=== PATIENT | male | born 1940 | race Caucasian/White ===

== ENCOUNTER 2020-08-27 06:47 | Outpatient (CLI) | payer MEDICARE, OTHER, SELFPAY ==
--- NOTE | 2020-08-27 07:09 | NMCV_ITS ---
NM lei perf SPECT r/s* [id number] Ky Najera Age: 79 Gender: M : 1940 Exam Date: 08/27/2020 07:48 Ordering Phys: Kam Regan MD Technologist: SINDY Thibodeaux Exam Location: [facility] Indications: ATRIAL FIBRILLATION, ATHEROSCLEROTIC HEART DISEASE STRESS TEST Please see separate stress [facility] for full findings IMAGE PROTOCOL Rest/Stress 1 Lexiscan Day Radiopharmaceutical Dose (mCi) Administration Site Administered by Rest: Tc-99m 10.9 IV SINDY Cosme Sestamibi Stress:Tc-99m 33.0 IV SINDY Thibodeaux Sestamiari Rest: 27-Aug-2020 60 Discovery 630 Stress: 27-Aug-2020 30 Discovery 630 0.4mg Lexiscan. Supine position only as patient was unable to lay prone. SPECT RESULTS Technical Quality: Excellent Raw Data Analysis: Normal Image Corrections: No attenuation or motion correction applied Summed Stress Score: 8 Summed Rest Score: 6 Summed Difference Score: 2 PERFUSION FINDINGS Small size perfusion abnormality of mild severity of basal to mid inferolateral, mid inferior and apical septal diaz on rest images with reversibility noted in mid inferolateral and apical septal diaz on stress images. FUNCTIONAL RESULTS (calculated via Gated SPECT) Stress Image LV EF (%): 69 Stress EDV (mL):75 TID: 1.14 Stress ESV (mL):23 FUNCTIONAL FINDINGS: The left ventricle is normal in size. Transient Ischemia Dilatation of 1.1. There is normal left ventricular systolic function. The left ventricular ejection fraction is normal with a value of 69%. There is normal left ventricular wall thickening with no regional wall motion normality. Normal end-diastolic end-systolic volumes. IMPRESSIONS 1. Small sized partially reversible perfusion abnormality of mild severity of basal to mid inferolateral, mid inferior and apical septal diaz. 2. This may represent old myocardial infarction in circumflex artery territory with mild micheline-infarct ischemia. 3. Overall left ventricular systolic function is normal without regional wall motion abnormalities, LVEF=69%. 4. EKG portion of the study will be reported separately. 5. When compared to previous study dated 02/22/2018, this finding appears to be new. Cathie Louis MD (Electronically Signed) Final Date: 27 August 2020 18:48 S
--- NOTE | 2020-08-27 07:09 | ECG_ITS ---
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 Interpretive Statements NAME OF STUDY: LEXISCAN SESTAMIBI STRESS TEST INDICATION: Atrial fibrillation PROCEDURE: At the baseline, the blood pressure was 119/82 mmHg, oxygen saturation 97% with a heart rate of 50 bpm. The electrocardiogram showed sinus bradycardia with first-degree AV block. Normal axis nonspecific ST depression. The Lexiscan was infused over a period of 20 seconds. A total of 0.4 milligrams of Lexiscan was infused. The stress phase was continued for a total of 5 minutes. Heart rate at the end of the stress phase was 67 bpm, oxygen saturation 98% with a blood pressure of 118/87 mmHg. The EKG at the peak infusion revealed no significant ST-T wave changes. The study was terminated due to protocol completion. Sestamibi was injected 20 seconds after the Lexiscan infusion. Blood pressure at the end of the recovery phase was 130/67 mmHg, oxygen saturation 97% with a heart rate of 64 beats per minute. CONCLUSION: 1. No significant EKG changes with the LexiScan infusion. 2. No LexiScan induced chest pain or cardiac arrhythmia. 3. Normal blood pressure and heart rate response. 4. Sestamibi/sestamibi perfusion scan pending; see separate report. Electronically Signed On 08-27-2020 11:18:13 CDT by Cathie Louis M.D. [email or web address]
[2020-08-27 07:25] VITALS: BMI 32.4
[2020-08-27] MEDS: regadenoson 0.4 Mg/5 ml Syringe IVP (08:41)
[2020-08-27 08:44] VITALS: BP 130/67; PULSE 65
== END 2020-08-27 06:48 | disposition home or self-care (01) ==
LOC: RAD 06:54 → CDL 07:12
PROVIDERS: PCP Family Medicine; Visit Provider Family Medicine
DX: I48.91 Unspecified atrial fibrillation (principal); I25.10 Atherosclerotic heart disease of native coronary artery without angina pectoris
CPT/HCPCS: 78452; 93017; A9500; J2785

== ENCOUNTER → 2020-09-14 09:23 | Outpatient (BNVA) | payer MEDICARE, OTHER, SELFPAY | PROVIDERS: PCP Family Medicine; Referring Provider Internal Medicine Cardiovascular Disease; Visit Provider Internal Medicine Cardiovascular Disease | DX: Z01.812 Encounter for preprocedural laboratory examination (principal); Z20.822 Contact with and (suspected) exposure to COVID-19; I48.91 Unspecified atrial fibrillation; I10 Essential (primary) hypertension; I25.10 Atherosclerotic heart disease of native coronary artery without angina pectoris | CPT/HCPCS: 80048; 85025; 85610; 87635 ==

== ENCOUNTER 2020-09-19 07:34 | Day surgery (SDC) | payer MEDICARE, OTHER, SELFPAY ==
[2020-09-19] VITALS (19 sets, daily range): BP systolic 103–135; BP diastolic 59–69; PULSE 47–56; RESP 3–21; TEMP 36.8; O2SAT 94–98; BMI 32.4
--- NOTE | 2020-09-19 07:30 | XACV_ITS ---
Ht: 165 cm Wt: 88 kg BSA: 2.05 m2 Gender: Male : 1940 Any Known Allergies: No known allergies Exam Priority: Routine Procedure(s): Procedure Description: Diagnostic procedure Procedure Description: Coronary Angiography Procedure Description: Pressure Wire Diagnostic Cath Status: Elective Diagnostic Findings * Left Main has no disease. * Left Anterior Descending has no disease. * Circumflex has no disease. * Proximal Right Coronary Artery: obstructive 60% stenosis, ELIDA: 3 flow. * Distal Right Coronary Artery: mild 40% stenosis, ELIDA: 3 flow. * Coronary angiography shows right dominance. PCI Status: Elective Conclusions 1. 1-Normal left main2-Patent previously placed proximal LAD stent rest of the vessel has diffuse luminal irregularities3-Nondominant circumflex, obtuse marginal has luminal irregularity4-Dominant RCA with proximal 60% and distal 40% stenosis . 2. There is obstructive coronary artery disease with one vessel disease. 3. FFR: After equalizing the distal and proximal pressure of FFR wire proximal to the lesion, mid to distal RCA was crossed with FFR wire. IV adenosine at rate of 140 mcg/min was started. Patient did not compliant of any symptoms, at then end of two minutes FFR was recorded as 0.93, which is not significant . Recommendations * Medical management advised. Diagnostic RX Recommendation: medical therapy and/or counseling Pressures Phase:Rest AO : 119 / 58 ( 83 ) @ 9:15:00 AM 112 / 53 ( 78 ) @ 9:19:00 AM Clinical Evaluation EBL: 5mL-10mL Procedural Details Pre-Procedure Time Out. Identified patient by full name and date of as verbalized by the patient/guarantor. Does the consent match the physician's order: Yes. Accurate & Complete Informed Consent: Yes. Inpatient/Outpatient History & Physical on Chart: Yes. If H&P is completed, is and addenduem needed: Yes; If yes, is the addendum complete: Yes. Visualize and Verify Site with Patient/Guarantor: N/A. Relevant Radiology Images available: Yes. Pre-op teaching completed and patient verbalized understanding. The risks, benefits, and alternatives of sedation and/or procedure were discussed by physician. The patient agrees to continue. Procedure started. Current Diagnosis : Chest Pain. [facility] Clinical Fraility Score: 4: Vulnerable. 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 Chest Pain Symptom Assessment: Typical Angina Symptoms. Correct patient, site and procedure confirmed by cath team. Current diagnosis: Chest Pain. PERRLA. 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 Lungs clear x 5 lobes. IV Site on Arrival: 20 gauge in the left forearm. IV Fluids: 0.9% NaCl at KVO. 0 mL infused prior to tender labor. Pre Procedural Pulses: bilateral dorsalis pedis was 3+. Pre Procedural Pulses: bilateral posterior tibial was 1+. Pre Procedural Pulses: right radial was 2+. Oxygen started at 2liters/min via nasal canula. right groin was prepped with chloroprep then draped in the usual sterile fashion. right radial was prepped with chloroprep then draped in the usual sterile fashion. Physician notified. Baseline sample Acquired. HR: 50 BPM. Physician arrived. Steve Mckenna scrubbed in. Raysa Nielson circulating. Physician scrubbed in. Immediate Pre-Procedure Time Out. Correct Patient: Yes; Correct Procedure: Yes; Correct Site: Yes; Correct Patient Position: Yes; Correct Supplies: Yes; Dried Flammable Prep: Yes; Blood Products Available: N/A;. Lidocaine 1% infiltrated to the right radial. Arterial access obtained. A 5 omani Brian catheter in over wire. Multiple views taken of left coronary artery. Catheter redirected to the RCA. Catheter removed over the exchange wire. A 5 omani JR4 catheter in over wire. Multiple views taken of right coronary artery. Catheter removed over the exchange wire. Lidocaine 1% infiltrated to the right groin. Arterial access obtained with micropuncture set. 6 omani JR 4 guide catheter was inserted over the wire. FFR guidewire was advanced through the guide catheter to lesion in the mid RCA. An FFR value of 0.93 was obtained for a lesion located at Mid RCA. Fractional flow reserve measurements obtained. Wire out. Guide catheter out. A TR Band was successful obtaining hemostatsis at the Right Radial artery insertion site. TR band placed. Hemostasis obtained. A Right femoral angiogram was performed to determine safe placement of closure device. A Mynx was successful obtaining hemostatsis at the Right Femoral artery insertion site. Mynx placed without complications. No signs or symptoms of hematoma noted. Sterile dressing applied per usual sterile fashion. Post Procedure: Pulses reassessed and unchanged. PERRLA. 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 No VTE prophylaxis required. Medication's Wasted: Heparin = 1000 units. Medication's Wasted: Other = Fentanyl 75 mcg. Medication's Wasted: Other = Adenosine 63 mL. Medication's Wasted: Nitro = 49.8 mg. Total IV fluids: 79 mL. Contrast type used: Omnipaque 300 mgI/mL, 500 mL bottle. Complications: None. Estimated blood loss: 5mL-10mL. Procedure completed. Patient transferred by stretcher to CPRU. Vital chart was stopped. Access Site Site: Right Radial artery Sheath Size: 6 Fr Hemostasis Method: TR Band Hemostasis Success: Successful Site: Right Femoral artery Sheath Size: 6 Fr Hemostasis Method: Mynx Hemostasis Success: Successful Procedure Medications Start: 10:04 AM Stop: 10:04 AM Medication: Versed Amount: 1 mg Route: I.V. Start: 10:08 AM Stop: 10:08 AM Medication: Versed 1 mg and Fentanyl 25 mcg Amount: 1 Route: I.V. Start: 10:12 AM Stop: 10:12 AM Medication: Nitrogylcerin Amount: 200 mcg Route: I.A. Start: 10:15 AM Stop: 10:15 AM Medication: Heparin Amount: 5000 units Route: I.V. I, the attending physician, have reviewed and verified all procedure medications. Yes, all medications given per verbal order History/Risk Factors Hypertension: Yes Dyslipidemia: No Peripheral Arterial Disease (PAD): No Myocardial Infarction (SC): Yes Obesity: No Renal Disease: No Prior Interventions PCI: Yes CABG: No Valve Surgery: No Date of PCI: 08/09/2013 Report Signatures Finalized by Ashely Hernandez MD on 10/02/2020 06:41 PM
[2020-09-19] MEDS: diphenhydrAMINE 50 mg Capsule PO (08:46)
--- NOTE | 2020-09-19 09:26 | P.HP_ITS ---
Same Day Surgery H&P Indication for Procedure/HPI DATE OF PROCEDURE: September 19, 2020 CHIEF COMPLAINT/INDICATIONFOR SURGICAL PROCEDURE: Worsening of chest pain suspicious for angina/abnormal stress test PREOP DIAGNOSIS: Chest pain suspicious for angina/abnormal stress test PLANNED PROCEDRUE: Operation Date: 09/19/20 08:30 Proposed Procedures p Cardiac Catheterization 02663 R06.02(Left) - Ashely Hernandez MD 79-year-old male past medical history significant for myocardial infarction, history of LAD stent in August 2003 and nonobstructive coronary artery disease including 50% RCA and 60% circumflex for worsening of chest pain shortness of breath despite of optimization of medicine underwent stress test TID ratio was elevated however mild periinfarct ischemia was noted. Since patient continues to worsen with symptoms and taking nitroglycerin at frequent interval we decided to proceed with left heart cath. Today patient is here for this very reason. Patient has been explained all risk benefit and alternative for the procedure. He has been explained the risks for stroke major minor bleed which is less than 2% and risk for hematoma infection bruising which is around 6%. He would like to proceed with it. He is a good candidate for DAPT. Medications/Allergies* Home Medications Medication Instructions Recorded Confirmed Type aspirin 81 mg tablet,delayed 81 mg PO DAILY 05/26/19 09/19/20 History release atorvastatin 20 mg tablet 20 mg PO DAILY 05/26/19 09/19/20 History cetirizine 10 mg tablet 5 mg PO DAILY PRN 05/26/19 09/19/20 History clopidogrel 75 mg tablet 75 mg PO DAILY 05/26/19 09/19/20 History isosorbide mononitrate 30 mg 30 mg PO BID tab 05/26/19 09/19/20 History tablet,extended release 24 hr magnesium oxide 400 mg PO DAILY 05/26/19 09/19/20 History montelukast 10 mg tablet 10 mg PO DAILY 05/26/19 09/19/20 History nitroglycerin 0.4 mg sublingual 0.4 mg SUBLINGUAL Q5M PRN 05/26/19 09/19/20 History tablet pantoprazole 20 mg tablet,delayed 20 mg PO DAILY 05/26/19 09/19/20 History release sotalol 120 mg tablet 120 mg PO BID 05/26/19 09/19/20 History tamsulosin 0.4 mg capsule 0.4 mg PO DAILY 05/26/19 09/19/20 History lisinopril 20 mg tablet 20 mg PO BID 05/27/19 09/19/20 History amlodipine 5 mg tablet 5 mg PO DAILY 09/05/20 09/19/20 History naproxen 500 mg tablet 500 mg PO BID PRN 09/05/20 09/19/20 History Allergies/Adverse Reactions Allergy/AdvReac Type Severity Reaction Status Date / Time No Known Allergies Allergy Unverified 12/07/19 15:43 Pertinent History/Comorbid Conditions* Medical History (Updated 09/06/20 @ 20:28 by Ashely Hernandez MD) Arteriosclerotic coronary artery disease Atrial fibrillation HTN (hypertension) Surgical History (Updated 05/27/19 @ 10:46 by Ashely Hernandez MD) S/P PTCA (percutaneous transluminal coronary angioplasty) Family History (Updated 05/26/19 @ 16:00 by Tory Heard LPN) Cancer Social History Smoking and tobacco status: never smoked Pertinent Exam Findings alert, oriented x 3, clear to auscultation bilaterally, regular rate & rhythm and operative site marked Conscious Sedation Assessment PATIENT ASSESSED PRIOR TO SEDATION, WITH NO CHANGE NOTED: Yes AIRWAY EVAL/ANESTHESIA PLAN: ASA II, Risks, benefits & alternatives of sedation and/or procedure discussed and Patient agrees to continue as planned Recommendations Surgery/Procedure today Coding Level of Care Code Acute Cephalometric Tracer for Trent Lanza
--- NOTE | 2020-09-19 11:41 | PC.NURSE ---
[facility] complete Angiogram completed at this time. Hematoma noted to R radial access site in CCL, 2nd TR band applied. Minx closure device used to R groin access site, hematoma also formed in CCL before arrival to CPRU. Borders marked around hematoma on arrival to CPRU. No new bleeding noted. Will continue to monitor.
--- NOTE | 2020-09-19 12:40 | PC.NURSE ---
TR Band Air released from distal TR band at this time per protocol. No bleeding noted. Will monitor.
--- NOTE | 2020-09-19 14:30 | PC.NURSE ---
The TR Band deflation is complete. No swelling or bleeding noted. PMS intact. Patient ambulated himself to the restroom. Upon returning to his room the groin and wrist site were inspected. Neither site had any swelling or bleeding noted. The patient is sitting in a chair and will be monitored for one more hour.
== END 2020-09-19 15:55 | disposition home or self-care (01) ==
PROVIDERS: PCP Family Medicine; Visit Provider Internal Medicine Cardiovascular Disease
DX: I25.10 Atherosclerotic heart disease of native coronary artery without angina pectoris (principal); I25.2 Old myocardial infarction; Z95.5 Presence of coronary angioplasty implant and graft; Z79.82 Long term (current) use of aspirin; I48.91 Unspecified atrial fibrillation; I10 Essential (primary) hypertension
CPT/HCPCS: 93454; 93571; C1760; C1769; C1887; C1894; J0153; J1644; J2250; J3010; J7030; Q0163; Q9967

== ENCOUNTER → 2020-09-25 09:42 | Outpatient (BNVA) | payer MEDICARE, OTHER, SELFPAY | PROVIDERS: PCP Family Medicine; Visit Provider Nurse Practitioner Family | DX: I25.10 Atherosclerotic heart disease of native coronary artery without angina pectoris (principal) | CPT/HCPCS: 80048 ==

== ENCOUNTER 2021-04-13 13:04 | Emergency (ER) | payer MEDICARE, OTHER, SELFPAY ==
[2021-04-13 13:16] VITALS: BP 153/65; PULSE 54; RESP 18; TEMP 36.9; O2SAT 97; BMI 33.3
--- NOTE | 2021-04-13 13:37 | W.ED.EYEPROB ---
Documented by User: [email or web address] Morris 04/13/21 15:02 HPI - Eye Problem General: Chief complaint: Eye Problems Stated complaint: left eye swelling Time Seen by Provider: 04/13/21 13:20 Source: patient and family () Mode of arrival: ambulatory Limitations: no limitations History of Present Illness: Patient is a nice 80-year-old male who presents to ED today along with his for concerns of redness and edema to the inferior aspect of his left eye. Patient states he first began noticing symptoms about a week ago. He was placed on cephalexin by his PCP Dr. Regan and states he has been on this medication over the past 5 days and does not seem to be improving. He states the eye itself seems to be okay and he is not complaining of any blurry vision, excessive tearing or discharge, foreign body sensations, ocular pain, or pain with EOMs. He has not had any recent injury or trauma. Onset (ago): day(s) Onset description: gradual Duration: constant Location: left eye Place: home Mechanism: none Associated symptoms: Reports no associated symptoms; Denies fever(s) Treatments Prior to Arrival: other (antibiotics ) Related Data: Patient tetanus UTD: Yes Review of Systems Const: Denies: fever(s), chills, body aches, fatigue or malaise Eyes: Reports: other (swelling around L eye); Denies: change in vision, blurry vision, blind spots, photophobia, eye discharge, eye redness, floaters or seeing flashes PFS ED PFSH: Medical History Arteriosclerotic coronary artery disease Atrial fibrillation HTN (hypertension) Surgical History S/P PTCA (percutaneous transluminal coronary angioplasty) Family History Other Cancer Physical Exam Const: COMMON NORMALS: no acute distress, patient oriented x3, no limitations and alert GENERAL APPEARANCE: cooperative NUTRITIONAL APPEARANCE: overweight ORIENTATION/CONSCIOUSNESS: Yes awake, Yes oriented to person, Yes oriented to place and Yes oriented to time HENMT: COMMON NORMALS: normocephalic, atraumatic and Normal external nose present HEAD & SCALP: normal to inspection, normocephalic and atraumatic FACE & SINUS IMAGES: 1. erythema/edema noted; no skin lesions present; no excessive tearing; no obvious abscess appreciated; some mild reactive edema to inferior orbit; findings do not look like periorbital cellulitis-certainly no certain for orbital cellulitis NOSE: Normal external nose present Eye: COMMON NORMALS: Equal, round and reactive pupils present, EOMs intact bilaterally and conjunctivae normal GENERAL EYE: normal light reflex VISUAL ACUITY: Yes acuity normal PERIORBITAL: periorbital findings abnormal (see above documentation) EYELID: eyelids normal CONJUNCTIVA: Yes conjunctivae normal SCLERA: sclerae normal CORNEA: Yes corneas normal PUPIL: Yes Equal, round and reactive pupils present DIRECT OPHTHALMOSCOPY: Yes normal light reflex Neuro: COMMON NORMALS: patient oriented x3 SENSORIUM/ORIENTATION: Yes alert, Yes oriented to person, Yes oriented to place and Yes oriented to time Course Vital Signs: Vital signs: Vital Signs Temperature 98.4 F 04/13/21 13:16 Pulse Rate 54 L 04/13/21 13:16 Respiratory Rate 18 04/13/21 13:16 Blood Pressure 153/65 04/13/21 13:16 Pulse Oximetry 97 04/13/21 13:16 MDM - Eye Problem Medical Decision Making Patient has erythema and edematous changes overlying his left lacrimal region. DDx includes nasolacrimal duct obstruction/calculus/carcinoma, facial cellulitis, etc. Spoke to Dr. Jackson we will add clindamycin to his antibiotic regimen and have him follow-up with Dr. Lang early this week for re-evaluation. Discharge Plan Discharge Patient Disposition: Home Clinical Impression: Edema of left orbit Condition: Stable Prescriptions: New clindamycin HCl 300 mg capsule 300 mg PO Q6H 7 Days Qty: 28 0RF No Action lisinopril 20 mg tablet 20 mg PO BID 0RF montelukast 10 mg tablet 10 mg PO DAILY 0RF pantoprazole [Protonix] 20 mg tablet,delayed release (DR/EC) 20 mg PO DAILY 0RF magnesium oxide 400 mg magnesium capsule 400 mg PO DAILY 0RF atorvastatin 20 mg tablet 20 mg PO DAILY 0RF clopidogrel [Plavix] 75 mg tablet 75 mg PO DAILY 0RF isosorbide mononitrate 30 mg tablet extended release 24 hr 30 mg PO BID 0RF sotalol 120 mg tablet 120 mg PO BID 0RF tamsulosin 0.4 mg capsule 0.4 mg PO DAILY 0RF aspirin [Adult Low Dose Aspirin] 81 mg tablet,delayed release (DR/EC) 81 mg PO DAILY 0RF nitroglycerin [Nitrostat] 0.4 mg tablet, sublingual 0.4 mg SUBLINGUAL Q5M PRN (Reason: Chest Pain) 0RF cetirizine [Zyrtec] 10 mg tablet 5 mg PO DAILY PRN (Reason: allergies) 0RF naproxen 500 mg tablet 500 mg PO BID PRN (Reason: Pain) 0RF amlodipine 5 mg tablet 5 mg PO DAILY 0RF Discharge Orders: Discharge ED (Routine); Ordered 04/13/21 Ordered By: Mandi Tobias Referrals: Kam Regan MD [Primary Care Provider] - Activity Restrictions/Additional Instructions: As we discussed case management should contact you early this week to set you up with your follow-up appointment with Dr. Lang. As you are established patients, please try to contact them yourself early Thursday morning to see if they have any last-minute cancellations and can work you into the schedule. Begin the antibiotics prescribed today immediately. You may return to the emergency department or follow-up with your primary care provider for worsening redness, swelling, increased pain, or any other concerns you may have. I hope you begin to feel better soon. Coding Level of Care Code ED Pre Assembly Wirer for Chg Fwd Exam Expanded Problem Focused Documented by User: Jarod Jackson DO 04/13/21 15:53 HPI - Eye Problem General: Chief complaint: Eye Problems Stated complaint: left eye swelling Time Seen by Provider: 04/13/21 13:20 PFSH ED PFSH: Medical History Arteriosclerotic coronary artery disease Atrial fibrillation HTN (hypertension) Surgical History S/P PTCA (percutaneous transluminal coronary angioplasty) Family History Other Cancer Physical Exam HENMT: FACE & SINUS IMAGES: 1. erythema/edema noted; no skin lesions present; no excessive tearing; no obvious abscess appreciated; some mild reactive edema to inferior orbit; findings do not look like periorbital cellulitis-certainly no certain for orbital cellulitis Course Vital Signs: Vital signs: Vital Signs Temperature 98.4 F 04/13/21 13:16 Pulse Rate 54 L 04/13/21 13:16 Respiratory Rate 18 04/13/21 13:16 Blood Pressure 153/65 04/13/21 13:16 Pulse Oximetry 97 04/13/21 13:16 MDM - Eye Problem Medical Decision Making Patient has erythema and edematous changes overlying his left lacrimal region. DDx includes nasolacrimal duct obstruction/calculus/carcinoma, facial cellulitis, etc. Spoke to Dr. Jackson we will add clindamycin to his antibiotic regimen and have him follow-up with Dr. Lang early this week for re-evaluation. Chart reviewed and patient discussed with midlevel. Agree with assessment and plan. Discharge Plan Discharge Patient Disposition: Home Clinical Impression: Edema of left orbit Condition: Stable Prescriptions: New clindamycin HCl 300 mg capsule 300 mg PO Q6H 7 Days Qty: 28 0RF No Action lisinopril 20 mg tablet 20 mg PO BID 0RF montelukast 10 mg tablet 10 mg PO DAILY 0RF pantoprazole [Protonix] 20 mg tablet,delayed release (DR/EC) 20 mg PO DAILY 0RF magnesium oxide 400 mg magnesium capsule 400 mg PO DAILY 0RF atorvastatin 20 mg tablet 20 mg PO DAILY 0RF clopidogrel [Plavix] 75 mg tablet 75 mg PO DAILY 0RF isosorbide mononitrate 30 mg tablet extended release 24 hr 30 mg PO BID 0RF sotalol 120 mg tablet 120 mg PO BID 0RF tamsulosin 0.4 mg capsule 0.4 mg PO DAILY 0RF aspirin [Adult Low Dose Aspirin] 81 mg tablet,delayed release (DR/EC) 81 mg PO DAILY 0RF nitroglycerin [Nitrostat] 0.4 mg tablet, sublingual 0.4 mg SUBLINGUAL Q5M PRN (Reason: Chest Pain) 0RF cetirizine [Zyrtec] 10 mg tablet 5 mg PO DAILY PRN (Reason: allergies) 0RF naproxen 500 mg tablet 500 mg PO BID PRN (Reason: Pain) 0RF amlodipine 5 mg tablet 5 mg PO DAILY 0RF Discharge Orders: Discharge ED (Routine); Ordered 04/13/21 Ordered By: Mandi Tobias Referrals: Kam Regan MD [Primary Care Provider] - Activity Restrictions/Additional Instructions: As we discussed case management should contact you early this week to set you up with your follow-up appointment with Dr. Lang. As you are established patients, please try to contact them yourself early Thursday to see if they have any last-minute cancellations and can work you into the schedule. Begin the antibiotics prescribed today immediately. You may return to the emergency department or follow-up with your primary care provider for worsening redness, swelling, increased pain, or any other concerns you may have. I hope you begin to feel better soon. Coding Level of Care Code ED Pre Assembly Wirer for Trent Fweb Exam Expanded Problem Focused
[2021-04-13] MEDS: clindamycin 150 mg/mL SDV 6 mL 600 MG IM (14:11)
--- NOTE | 2021-04-16 05:44 | DCPLANNER ---
Addendum entered by Antonella Hawk 04/23/21 08:57: Patient had a follow up appointment scheduled for 04.19.[address] Lang - patient did attend appointment. Original Note: assistant store manager had message to schedule a follow up appointment for patient with Dr. Lang. assistant store manager faxed patients information to the office of Dr. Lang. Patients information will be reviewed. Clinic will call patient with appointment information.
== END 2021-04-13 14:21 | disposition home or self-care (01) ==
PROVIDERS: Emergency Provider Physician Assistant; PCP Family Medicine
DX: H05.222 Edema of left orbit (principal); Z79.02 Long term (current) use of antithrombotics/antiplatelets; Z79.82 Long term (current) use of aspirin; I25.10 Atherosclerotic heart disease of native coronary artery without angina pectoris; I10 Essential (primary) hypertension
CPT/HCPCS: 96372; 99283; J3490

== ENCOUNTER → 2021-07-16 14:29 | Outpatient (BNVA) | payer MEDICARE, OTHER, SELFPAY | PROVIDERS: PCP Family Medicine; Visit Provider Internal Medicine Cardiovascular Disease | DX: I25.10 Atherosclerotic heart disease of native coronary artery without angina pectoris (principal); I48.19 Other persistent atrial fibrillation; I10 Essential (primary) hypertension; E78.5 Hyperlipidemia, unspecified; G47.33 Obstructive sleep apnea (adult) (pediatric); R00.1 Bradycardia, unspecified; I44.0 Atrioventricular block, first degree | CPT/HCPCS: 93005; 99214 ==

== ENCOUNTER 2021-08-02 08:49 | Inpatient (IN) | payer MEDICARE, OTHER, SELFPAY ==
[2021-08-02] VITALS (20 sets, daily range): BP systolic 108–150; BP diastolic 58–80; PULSE 74–94; RESP 15–32; TEMP 36.8–37.9; O2SAT 77–97; BMI 32.9; BMI 32.3
--- NOTE | 2021-08-02 08:52 | W.ED.GENADLT ---
HPI - General Adult General: Chief complaint: Upper Respiratory Infection Stated complaint: flu like symptoms Time Seen by Provider: 08/02/21 08:52 History of Present Illness: Mr. Najera is an 80-year-old gentleman with history of hypertension, hyperlipidemia, CAD, atrial fibrillation, PATTI who presents to the emergency department due to generalized symptoms including diarrhea and malaise. He reports onset of symptoms approximately 7 PM yesterday evening. Onset was subacute with multiple episodes of watery diarrhea without blood. Minimal associated abdominal discomfort which is aching and intermittent. Since that time he has had fevers, chills, and generalized weakness. Intensity symptoms is moderate. Course has persisted. No other specific changes in health, exacerbating, or alleviating factors identified. Onset (ago): hour(s) Severity: moderate Associated symptoms: Reports fevers/chills and malaise Review of Systems General: Reports: 10 or more systems reviewed and unremarkable except in HPI and below Const: Reports: malaise [facility] ED PFSH: Medical History Arteriosclerotic coronary artery disease Atrial fibrillation HTN (hypertension) Hyperlipidemia PATTI (obstructive sleep apnea) Surgical History S/P cholecystectomy S/P PTCA (percutaneous transluminal coronary angioplasty) Family History Other Cancer Social History Smoking and tobacco status: never smoked Alcohol intake: never Lives independently: Yes Household members: spouse and children Marital status: Physical Exam Const: COMMON NORMALS: alert GENERAL APPEARANCE: cooperative, well developed and ill appearing (Somewhat) HENMT: COMMON NORMALS: normocephalic and atraumatic HEAD & SCALP: normocephalic and atraumatic Eye: COMMON NORMALS: conjunctivae normal CONJUNCTIVA: Yes conjunctivae normal SCLERA: sclerae normal Neck/C-Spine: COMMON NORMALS: supple GENERAL: Yes trachea midline Resp: COMMON NORMALS: normal respiratory effort and clear to auscultation bilaterally EFFORT & INSPECTION: Yes able to speak in complete sentences AUSCULTATION: clear to auscultation bilaterally Cardio: COMMON NORMALS: regular rate and regular rhythm RATE: regular rate RHYTHM: regular rhythm GI: COMMON NORMALS: Soft to palpation PALPATION: Yes Soft to palpation, Yes Tenderness to palpation present (GI), No Guarding due to palpation present (GI) and No Rigid due to palpation PERCUSSION: normal to percussion Extremity: GENERAL: Yes normal exam except as noted and No edema Neuro: COMMON NORMALS: moves all extremities SENSORIUM/ORIENTATION: Yes alert and No Orientation impaired Psych: COMMON NORMALS: mental status grossly normal and Normal thought process present THOUGHT PROCESS: Normal thought process present Course ED course: - Patient was seen and evaluated by me at bedside - Patient placed on cardiac monitors, IV access obtained - Initial evaluation notable for exam as above, somewhat ill-appearing - Labs and xrays personally interpreted by me. EKG showing sinus rhythm with first degree AV block, no STEMI. -Fluids and antiemetic given - Labs notable for leukopenia, normal hemoglobin, thrombocytopenia. Metabolic panel with evidence of dehydration. Total bilirubin elevated of unclear etiology. Patient does not have clinically apparent jaundice, pain is not isolated to right upper quadrant. - Imaging notable for no lobar consolidation or pneumothorax on chest x-ray. Fluid-filled colon on CT likely representing enteritis/colitis. Antibiotics ordered. - Upon serial reexamination after treatment the patient was similar. He had multiple episodes of watery stool while in the emergency department. Given ongoing symptoms and overall clinical appearance I believe that inpatient management is required. - Based on patient history, evaluation, and testing as interpreted the most likely cause of the patient's condition is enterocolitis - The results of ED evaluation were discussed with the patient including plan for admission due to requirement for level of care not available if discharged to prevent significant worsening/deterioration. - Admitting service was contacted and [] with [] agreed to admit the patient - Patient was admitted without further deterioration or significant events. Note: Click bubbles or prepopulated lugo in note writing are used for assistance with data collection and billing and are inherently more limited than narrative and other text portions of this note. Please use narrative for additional clinical history and defer to narrative/free test for any case of contradictory information. If information appears in only free text or click bubble it should be considered present or absent as reported. Please contact note freelance copywriter for clarifications of clinical information or contradictory information. MDM is a brief summary, contradictory or erroneous seeming information should be clarified and full note should be reviewed. Vital Signs: Vital signs: Vital Signs Temperature 98.1 F 08/04/21 17:44 Pulse Rate 94 08/04/21 17:44 Respiratory Rate 16 08/04/21 17:44 Blood Pressure 120/67 08/04/21 17:44 Pulse Oximetry 95 08/04/21 17:44 MDM - General Adult Medical Decision Making 80-year-old gentleman presenting with generalized symptoms and diarrhea. Found to have enterocolitis. Patient had multiple watery bowel movements while in the emergency department and has evidence of dehydration. Admitted for further management. Medical Records I reviewed the patient's medical records. Lab Data I reviewed the patient's lab results. : 08/04/21 04:50 08/04/21 04:50 Radiology Impressions Chest X-Ray 08/02/21 09:19 IMPRESSION: 1. No acute cardiopulmonary finding. Abdomen/Pelvis CT 08/02/21 09:38 IMPRESSION: Fluid prominence in the colon could indicate prominent secretions due to infectious/inflammatory enteritis/colitis. Laboratory Results WBC 3.1 10^3/uL (4.0-10.0) L 08/03/21 04:22 RBC 3.90 10^6/uL (4.1-5.3) L 08/03/21 04:22 Hgb 11.6 g/dL (11.7-16.6) L 08/03/21 04:22 Hct 34.4 % (42.0-52.0) L 08/03/21 04:22 MCV 88.2 fl (80-94) 08/03/21 04:22 MCH 29.7 pg (28.0-34.0) 08/03/21 04:22 MCHC 33.7 g/dL (30.0-36.0) 08/03/21 04:22 RDW 14.5 % (12.1-15.1) 08/03/21 04:22 Plt Count 97 10^3/cmm (130-400) L 08/03/21 04:22 MPV 10.8 fL (7.4-10.4) H 08/03/21 04:22 Neut % (Auto) 81.1 % 08/03/21 04:22 Lymph % (Auto) 13.5 % 08/03/21 04:22 [place] % (Auto) 4.8 % 08/03/21 04:22 Eos % (Auto) 0.0 % 08/03/21 04:22 Baso % (Auto) 0.3 % 08/03/21 04:22 Neut # (Auto) 2.53 10^3/uL (1.8-7.7) 08/03/21 04:22 Lymph # (Auto) 0.4 10^3/uL (0.8-4.8) L 08/03/21 04:22 Davie # (Auto) 0.2 10^3/uL (0.2-0.9) 08/03/21 04:22 Eos # (Auto) 0.0 10^3/uL (0.0-0.8) 08/03/21 04: Baso # (Auto) 0.0 10^3/uL (0.0-0.1) 08/03/21 04:22 Nucleated RBC % (auto) 0 % 08/03/21 04:22 Nucleated RBCs # 0.0 /100WBC 08/03/21 04:22 Sodium 134 mmol/L (136-145) L 08/03/21 04:22 Potassium 3.9 mmol/L (3.5-5.1) 08/03/21 04:22 Chloride 101 mmol/L (98-107) 08/03/21 04:22 Carbon Dioxide 23 mmol/L (22-29) 08/03/21 04:22 Anion Gap 13.9 (5-19) 08/03/21 04:22 BUN 30 mg/dL (8-23) H 08/03/21 04:22 Creatinine 1.6 mg/dL (0.7-1.2) H 08/03/21 04:22 GFR Calculation Not Reportable 08/03/21 04:22 Glucose 109 mg/dL (65-115) 08/03/21 04:22 Calculated Osmolality 285 mOsm/kg (285-295) 08/03/21 04:22 Lactate 2.0 mmol/L (0.5-2.2) 08/02/21 10:09 Calcium 9.0 mg/dL (8.5-10.5) 08/03/21 04:22 Magnesium 2.0 mg/dL (1.7-2.3) 08/02/21 08:30 Total Bilirubin 2.4 mg/dL (0.15-1.2) H 08/03/21 04:22 AST 14 U/L (0-40) 08/03/21 04:22 ALT 11 U/L (0-41) 08/03/21 04:22 Alkaline Phosphatase 58 IU/L (40-130) 08/03/21 04:22 Troponin T Baseline 9 ng/L (0-15) 08/02/21 08:30 Troponin T 120 Minute 7.78 ng/L (0-15) 08/02/21 10:09 Delta Troponin T -1.22 ABS# (0-10) L 08/02/21 10:09 Troponin T Hi Sens 6Hr 9.14 ng/L (0-15) 08/02/21 14:31 Troponin T Hi Sens 6Hr Delta 0.14 ng/L (0-12) 08/02/21 14:31 Total Protein 7.1 g/dL (6.6-8.7) 08/03/21 04:22 Albumin 3.9 g/dL (3.5-5.2) 08/03/21 04:22 Globulin 3.2 g/dL (1.3-4.6) 08/03/21 04:22 Procalcitonin 0.10 ng/mL (0-0.5) 08/02/21 08:30 TSH 1.17 uIU/mL (0.27-4.20) 08/02/21 08:30 Urine Color Yellow (Yellow) 08/02/21 09:48 Urine Appearance Clear (CLEAR) 08/02/21 09:48 Urine pH 5 (5-7) 08/02/21 09:48 Ur Specific [place] 1.025 (1.005-1.030) 08/02/21 09:48 Urine Protein Neg (Negative) 08/02/21 09:48 Urine Glucose (UA) Norm (Normal) 08/02/21 09:48 Urine Ketones 1+ (Negative) H 08/02/21 09:48 Urine Blood Neg (Negative) 08/02/21 09:48 Urine Nitrate Negative (Negative) 08/02/21 09:48 Urine Bilirubin 1+ (Negative) H 08/02/21 09:48 Urine Urobilinogen Norm mg/dL (Negative) 08/02/21 09:48 Ur Leukocyte Esterase Negative (Negative) 08/02/21 09:48 Coronavirus 229E (PCR) Not detected (NOT DETECT) 08/02/21 09:34 SARS-CoV-2 (PCR) Not detected (NOT DETECT) 08/02/21 09:34 Discharge Plan Discharge Patient Disposition: Placed in Observation Admit Provider: Charles Cueva Clinical Impression: Enteritis Discharge Diet: Advance as tolerated and Full LIquid Discharge Activity: Increase activity as tolerated Coding Level of Care Code ED Graduate Teaching Associate for Chg Fwd Exam Comprehensive
--- NOTE | 2021-08-02 09:19 | XR_ITS ---
WS: [id number] Exam: XR chest 1V portable [id number] Date/Time of Exam: 08/02/2021 9:57 AM Reason For Exam: weakness, fever Comparison 10/30/2018. The lungs are fully expanded and clear. Normal cardiomediastinal silhouette. No pleural effusions. Se veral old bilateral rib fractures. Bony structures are otherwise intact. XR/XR chest 1V portable [id number] IMPRESSION: 1. No acute cardiopulmonary finding.
--- NOTE | 2021-08-02 09:19 | ECG_ITS ---
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 Measurements Intervals [place] Rate: 74 P: OK: QRS: -27 QRSD: 82 T: 37 QT: 378 QTc: 421 Interpretive Statements SUPRAVENTRICULAR RHYTHM BORDERLINE LEFT AXIS DEVIATION [QRS AXIS < -20] ABNORMAL RHYTHM ECG Compared to ECG 10/30/2018 15:14:20 Supraventricular rhythm now present Sinus rhythm no longer present First degree AV block no longer present Electronically Signed On 08-02-2021 22:52:19 CDT by Cathie Louis M.D. [id number] khalil
[2021-08-02 09:34] LABS: Basophils % 0.5 %; Hematocrit 41.4 % (42.0-52.0); Hemoglobin 13.9 g/dL (11.7-16.6); Lymphocytes # 0.3 10^3/uL (0.8-4.8); Lymphocytes % 6.9 %; Mean Corpuscular HGB Conc 33.6 g/dL (30.0-36.0); Mean Corpuscular Hemoglobin 29.8 pg (28.0-34.0); Mean Corpuscular Volume 88.7 fl (80-94); Mean Platelet Volume 11.2 fL (7.4-10.4); Monocytes # 0.2 10^3/uL (0.2-0.9); Monocytes % 4.6 %; Neutrophils # 3.45 10^3/uL (1.8-7.7); Neutrophils % 87.7 %; Nucleated Red Blood Cells % 0 %; Platelet Count 117 10^3/cmm (130-400); Red Blood Count 4.67 10^6/uL (4.1-5.3); Red Cell Distribution Width 14.3 % (12.1-15.1); White Blood Count 3.9 10^3/uL (4.0-10.0)
[2021-08-02] MEDS: sodium chloride 0.9% 1,000 ML 999 ML IV (09:35)
--- NOTE | 2021-08-02 09:38 | CTR_ITS ---
PROCEDURE INFORMATION: Exam: CT Abdomen And Pelvis Without Contrast Exam date and time: 08/02/2021 10:32 AM Age: 80 years old Clinical indication: Fever and other: Diarrhea; Additional info: Abd pain, diarrhea, fever TECHNIQUE: Imaging protocol: Computed tomography of the abdomen and pelvis without contrast. Total images: 3 Radiation optimization: All CT scans at this facility use at least one of these dose optimization techniques: automated exposure control; mA and/or kV adjustment per patient size (includes targeted exams where dose is matched to clinical indication); or iterative reconstruction. COMPARISON: CT pelvis wo con [id number] 11/02/2018 8:26 AM RADIATION DOSE METRICS: Total DLP (mGy-cm): 1771.69 FINDINGS: Liver: Normal. No mass. Gallbladder and bile ducts: Prior cholecystectomy noted. Pancreas: Normal. No ductal dilation. Spleen: Normal. No splenomegaly. Adrenal glands: Normal. No mass. Kidneys and ureters: Normal. No hydronephrosis. Stomach and bowel: Fluid prominence in the colon could indicate prominent secretions due to infectious/inflammatory enteritis/colitis. Appendix: No evidence of appendicitis. Intraperitoneal space: Unremarkable. No free air. No significant fluid collection. Vasculature: Mild atherosclerotic disease is evident. Incidental phleboliths noted. Lymph nodes: Unremarkable. No enlarged lymph nodes. Urinary bladder: Unremarkable as visualized. Reproductive: Unremarkable as visualized. Bones/joints: Old right rib fracture evident. Bridging osteophytes are seen spanning the SI joints bilaterally. Superior right acetabulum enchondroma. Soft tissues: There is a fat containing left inguinal hernia. CT/CT abdomen pelvis wo con [id number] IMPRESSION: Fluid prominence in the colon could indicate prominent secretions due to infectious/inflammatory enteritis/colitis.
[2021-08-02 09:49] LABS: Slide Review Slide Review Perform; Troponin(5th) Baseline 9 ng/L (0-15)
[2021-08-02 09:56] LABS: Thyroid Stimulating Hormone 1.17 uIU/mL (0.27-4.20)
[2021-08-02 10:09] LABS: Alanine Aminotransferase 16 U/L (0-41); Albumin Level 5.1 g/dL (3.5-5.2); Alkaline Phosphatase 95 IU/L (40-130); Anion Gap 19.3 (5-19); Aspartate Amino Transferase 16 U/L (0-40); Blood Urea Nitrogen 26 mg/dL (8-23); Calcium 9.6 mg/dL (8.5-10.5); Carbon Dioxide 21 mmol/L (22-29); Chloride 101 mmol/L (98-107); Globulin 3.1 g/dL (1.3-4.6); Glucose 125 mg/dL (65-115); Osmolality Calculated 290 mOsm/kg (285-295); Potassium 4.3 mmol/L (3.5-5.1); Sodium 137 mmol/L (136-145); Total Bilirubin 2.5 mg/dL (0.15-1.2); Total Protein 8.2 g/dL (6.6-8.7)
[2021-08-02 10:22] LABS: Add Urine Microscopic? NO; Charge for UA Resulting for Rev
[2021-08-02 10:24] LABS: Urine Appearance Clear (CLEAR); Urine Color Yellow (Yellow)
[2021-08-02 10:25] LABS: Bilirubin Urine 1+ (Negative); Blood Urine Neg (Negative); Glucose Urine UA Norm (Normal); Ketones Urine 1+ (Negative); Leukocyte Esterase Urine Negative (Negative); Nitrate Urine Negative (Negative); Protein Urine Neg (Negative); Specific Gravity, Urine 1.025 (1.005-1.030); Urobilinogen Urine Norm (Negative); pH Urine 5 (5-7)
[2021-08-02 10:36] LABS: Troponin 5 2HR 7.78 ng/L (0-15)
[2021-08-02 10:48] LABS: Troponin 5 2HR Delta -1.22 ABS# (0-10)
--- NOTE | 2021-08-02 11:19 | ECG_ITS ---
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 Measurements Intervals [place] Rate: 76 P: -10 CT: 208 QRS: -24 QRSD: 81 T: 30 QT: 345 QTc: 390 Interpretive Statements SINUS RHYTHM BORDERLINE LEFT AXIS DEVIATION [QRS AXIS < -20] Compared to ECG 08/02/2021 09:31:06 Supraventricular rhythm no longer present Electronically Signed On 08-02-2021 23:08:54 CDT by Cathie Louis M.D. [id number]
[2021-08-02 11:43] LABS: Adenovirus Not Detected (NOT DETECT); Chlamydia Pneumoniae Not Detected (NOT DETECT); Coronavirus 229E,HKU1,NL63,OC4 Not Detected (NOT DETECT); Human Metapneumovirus Not Detected (NOT DETECT); Human Rhinovirus/Enterovirus Not Detected (NOT DETECT); Influenza A Not Detected (NOT DETECT); Influenza A H1 Not Detected (NOT DETECT); Influenza A H1-2009 Not Detected (NOT DETECT); Influenza A H3 Not Detected (NOT DETECT); Influenza B Not Detected (NOT DETECT); Mycoplasma Pneumoniae Not Detected (NOT DETECT); Parainfluenza Virus Type 1 Not Detected (NOT DETECT); Parainfluenza Virus Type 2 Not Detected (NOT DETECT); Parainfluenza Virus Type 3 Not Detected (NOT DETECT); Parainfluenza Virus Type 4 Not Detected (NOT DETECT); Respiratory Syncytial Virus A Not Detected (NOT DETECT); Respiratory Syncytial Virus B Not Detected (NOT DETECT); SARS-COV-2 Not Detected (NOT DETECT)
--- NOTE | 2021-08-02 11:46 | PC.NURSE ---
2nd EKG was completed on patient.
[2021-08-02] MEDS: ciprofloxacin 400 MG/200 ML PREMIX 200 MG IV (12:54)
[2021-08-02] MEDS: metroNIDAZOLE IV 500 MG/100 ML PREMIX 100 MG IV ×2 (14:03→20:26)
[2021-08-02 14:57] LABS: Troponin 5 6HR 9.14 ng/L (0-15)
--- NOTE | 2021-08-02 15:19 | ECG_ITS ---
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 Measurements Intervals [place] Rate: 78 P: 17 OK: 227 QRS: -26 QRSD: 80 T: 28 QT: 354 QTc: 404 Interpretive Statements SINUS RHYTHM WITH FIRST DEGREE AV BLOCK BORDERLINE LEFT AXIS DEVIATION [QRS AXIS < -20] Compared to ECG 08/02/2021 11:36:56 First degree AV block now present Electronically Signed On 08-02-2021 22:59:25 CDT by Cathie Louis M.D. [id number]
[2021-08-02 15:27] LABS: Troponin 5 6HR Delta 0.14 ng/L (0-12)
[2021-08-02] MEDS: ondansetron 2 mg/ML SDV 2 mL 4 MG IVP (15:49)
--- NOTE | 2021-08-02 17:51 | PM.HP ---
Providers/Chief Complaint Admitting Physician: Charles Cueva Primary Care Provider: Kam Regan MD Chief Complaint: flu like symptoms History of Present Illness 80-year-old gentleman presented with persistent nonbloody/nonmelanotic diarrhea, with fever, malaise. In ER febrile 100.2. Some leukopenia 3.9, lymphopenia 0.3. Platelets 117. Chronic. Negative coronavirus PCR. CT abdomen pelvis with fluid comments in the colon could indicate considerations due to infectious/inflammatory enteritis/colitis. Denies any abdominal pain. Nobody else ill at home. Review of Systems Const: Reports: fever(s) and malaise; Denies: chills or body aches Eyes: Denies: change in vision, eye discomfort or eye redness ENMT: Denies: throat pain, oral sores or ear or mastoid pain Card: Denies: chest pain, edema, pre-syncope or dyspnea on exertion Resp: Denies: dyspnea, productive cough, change in phlegm color or hemoptysis GI: Reports: diarrhea; Denies: abdominal pain, nausea, vomiting, constipation, hematochezia or melena : Denies: flank pain, difficulty urinating, urinary frequency or hematuria Musc: Denies: back pain, joint swelling or joint redness Skin/Breast: Denies: rash or new lesions Neuro: Denies: headache(s), numbness in extremities, weakness in extremities, dizziness, confusion or seizure-like activity Endo: Denies: polyuria or polydipsia Luis M/Lymph: Denies: easy bleeding or tender lymph nodes All/Imm: Denies: urticaria or tongue swelling Medications/Allergies Home Medications Medication Instructions Recorded Confirmed Last Taken Type aspirin 81 mg tablet,delayed 81 mg PO DAILY 05/26/19 08/02/21 08/01/21 History release (Adult Low Dose Aspirin) atorvastatin 20 mg tablet 20 mg PO DAILY 05/26/19 08/02/21 08/02/21 History cetirizine 10 mg tablet (Zyrtec) 5 mg PO DAILY PRN 05/26/19 08/02/21 Unknown History clopidogrel 75 mg tablet (Plavix) 75 mg PO DAILY 05/26/19 08/02/21 08/02/21 History isosorbide mononitrate 30 mg 30 mg PO BID tab 05/26/19 08/02/2108/02/22 History tablet,extended release 24 hr magnesium oxide 400 mg PO BID 05/26/19 08/02/21 08/02/21 History montelukast 10 mg tablet 10 mg PO DAILY 05/26/19 08/02/21 08/01/21 History nitroglycerin 0.4 mg sublingual 0.4 mg SUBLINGUAL Q5M PRN 05/26/19 08/02/21 Unknown History tablet (Nitrostat) pantoprazole 20 mg tablet,delayed 20 mg PO BID 05/26/19 08/02/21 08/02/21 History release (Protonix) sotalol 120 mg tablet 120 mg PO BID 05/26/19 08/02/21 08/02/21 History tamsulosin 0.4 mg capsule 0.4 mg PO DAILY 05/26/19 08/02/21 08/02/21 History lisinopril 20 mg tablet 20 mg PO BID 05/27/19 08/02/21 08/02/21 History amlodipine 5 mg tablet 5 mg PO DAILY 09/05/20 08/02/21 08/01/21 History naproxen 500 mg tablet 500 mg PO BID PRN 09/05/20 08/02/21 Unknown History Allergies Allergy/AdvReac Type Severity Reaction Status Date / Time No Known Allergies Allergy Verified 09/25/20 09:05 PFSH Acute PFSH: Medical History Arteriosclerotic coronary artery disease Atrial fibrillation HTN (hypertension) Hyperlipidemia PATTI (obstructive sleep apnea) Surgical History S/P cholecystectomy S/P PTCA (percutaneous transluminal coronary angioplasty) Family History Other Cancer Social History Smoking and tobacco status: never smoked Alcohol intake: never Substance/Drug Use: never Lives independently: Yes Household members: spouse and children Marital status: Vitals/I&O/Wt Last Vital Signs Temp 100.2 F H 08/02/21 08:58 Pulse 80 08/02/21 17:16 Resp 32 H 08/02/21 15:00 BP 130/60 08/02/21 16:04 Pulse Ox 96 08/02/21 17:16 08/02/21 08/02/21 08/02/21 06:59 14:59 22:59 Intake Total 1200 / 1200 100 / 1300 Balance 1200 / 1200 100 / 1300 Weight last 48 hrs Weight 89.811 kg Physical Exam Narrative: at bedside Const: COMMON NORMALS: alert GENERAL APPEARANCE: cooperative NUTRITIONAL APPEARANCE: overweight ORIENTATION/CONSCIOUSNESS: Yes awake HENMT: COMMON NORMALS: normocephalic, EAC's normal, Normal external nose present and moist oral mucous membranes HEAD & SCALP: normocephalic NOSE: Normal external nose present EXTERNAL AUDITORY CANAL: EAC's normal Neck/C-Spine: COMMON NORMALS: no meningeal signs Chest: CHEST: Yes Symmetrical chest wall rise Resp: COMMON NORMALS: clear to auscultation bilaterally AUSCULTATION: clear to auscultation bilaterally Cardio: COMMON NORMALS: regular rate, regular rhythm and No murmurs present (Cardio) RATE: regular rate RHYTHM: regular rhythm GI: COMMON NORMALS: Normal to inspection, nondistended, normoactive bowel sounds present, Soft to palpation and non-tender PALPATION: Yes Soft to palpation Extremity: COMMON NORMALS: no pedal edema Neuro: COMMON NORMALS: moves all extremities SENSORIUM/ORIENTATION: Yes alert MENINGEAL SIGNS: Yes no meningeal signs Psych: COMMON NORMALS: mental status grossly normal Skin: COMMON NORMALS: no wounds RASHES: no rashes Data : 08/02/21 08:30 08/02/21 08:30 Micro: Microbiology 08/02/21 10:05 Blood Culture - Preliminary Blood SPECIMEN COLLECTED 08/02/21 10:09 Blood Culture - Preliminary Blood SPECIMEN COLLECTED A&P Assessment and plan (1) Enteritis: Collect stool studies. IV hydration. Continue Cipro, Flagyl. P.o. intake as tolerating. Status: Acute (2) Fever: Secondary to enteritis. COVID-19 negative. Status: Acute (3) Diarrhea: Status: Acute (4) Lymphopenia: Status: Acute Plan PATTI: Nightly CPAP CAD A. fib HTN HLD Attestations Medical Necessity Statement*: Observation less than 2 midnights anticipated for assessment management of enteritis with fever. Coding Level of Care Code Acute Chocolate Finisher Operator for Chg Fwd Diagnoses Enteritis K52.9 Fever R50.9 Diarrhea R19.7 Lymphopenia D72.810
[2021-08-02] MEDS: heparin 5,000 unit/mL INJ 1 mL 5000 UNIT SUBCUT (19:24)
[2021-08-02] MEDS: lactated ringers 1,000 ML 75 ML IV (19:24)
[2021-08-02] MEDS: sotalol 80 mg Tablet 120 MG PO (19:24)
[2021-08-02] MEDS: isosorbide mononitrate ER 30 mg Tablet PO (19:25)
[2021-08-03] VITALS (8 sets, daily range): BP systolic 112–148; BP diastolic 60–78; PULSE 65–86; RESP 15–19; TEMP 36.4–39.5; O2SAT 90–100
--- NOTE | 2021-08-03 00:15 | PC.NURSE ---
Unable to measure urine output due to it being mixed with loose stool.
--- NOTE | 2021-08-03 00:27 | PC.NURSE ---
Patient answers correct to person and time, but not to place or situation. Bed alarm on.
[2021-08-03] MEDS: ciprofloxacin 400 MG/200 ML PREMIX 200 MG IV ×2 (00:47→12:16)
[2021-08-03] MEDS: heparin 5,000 unit/mL INJ 1 mL 5000 UNIT SUBCUT ×3 (00:48→18:03)
[2021-08-03] MEDS: metroNIDAZOLE IV 500 MG/100 ML PREMIX 100 MG IV ×3 (05:06→21:13)
[2021-08-03 05:17] LABS: Basophils % 0.3 %; Hematocrit 34.4 % (42.0-52.0); Hemoglobin 11.6 g/dL (11.7-16.6); Lymphocytes # 0.4 10^3/uL (0.8-4.8); Lymphocytes % 13.5 %; Mean Corpuscular HGB Conc 33.7 g/dL (30.0-36.0); Mean Corpuscular Hemoglobin 29.7 pg (28.0-34.0); Mean Corpuscular Volume 88.2 fl (80-94); Mean Platelet Volume 10.8 fL (7.4-10.4); Monocytes # 0.2 10^3/uL (0.2-0.9); Monocytes % 4.8 %; Neutrophils # 2.53 10^3/uL (1.8-7.7); Neutrophils % 81.1 %; Nucleated Red Blood Cells % 0 %; Platelet Count 97 10^3/cmm (130-400); Red Cell Distribution Width 14.5 % (12.1-15.1); White Blood Count 3.1 10^3/uL (4.0-10.0)
[2021-08-03 05:36] LABS: Alanine Aminotransferase 11 U/L (0-41); Albumin Level 3.9 g/dL (3.5-5.2); Alkaline Phosphatase 58 IU/L (40-130); Anion Gap 13.9 (5-19); Aspartate Amino Transferase 14 U/L (0-40); Blood Urea Nitrogen 30 mg/dL (8-23); Carbon Dioxide 23 mmol/L (22-29); Chloride 101 mmol/L (98-107); Globulin 3.2 g/dL (1.3-4.6); Glucose 109 mg/dL (65-115); Osmolality Calculated 285 mOsm/kg (285-295); Potassium 3.9 mmol/L (3.5-5.1); Slide Review Slide Review Perform; Sodium 134 mmol/L (136-145); Total Bilirubin 2.4 mg/dL (0.15-1.2); Total Protein 7.1 g/dL (6.6-8.7)
[2021-08-03] MEDS: sotalol 80 mg Tablet 120 MG PO ×2 (08:37→18:04)
[2021-08-03] MEDS: amlodipine 5 mg Tablet PO (08:40)
[2021-08-03] MEDS: clopidogrel 75 mg Tablet PO (08:40)
[2021-08-03] MEDS: aspirin 81 mg EC Tablet PO (08:40)
[2021-08-03] MEDS: atorvastatin 40 mg Tablet 20 MG PO (08:40)
[2021-08-03] MEDS: montelukast sodium 10 mg Tablet PO (08:40)
[2021-08-03] MEDS: tamsulosin 0.4 mg Capsule PO (08:40)
[2021-08-03] MEDS: pantoprazole DR 40 mg Tablet PO (08:40)
[2021-08-03] MEDS: isosorbide mononitrate ER 30 mg Tablet PO ×2 (08:41→18:05)
[2021-08-03] MEDS: lactated ringers 1,000 ML 75 ML IV ×2 (11:03→23:57)
[2021-08-03] MEDS: acetaminophen 325 mg Tablet 650 MG PO ×2 (12:42→23:56)
--- NOTE | 2021-08-03 12:44 | PM.PN ---
Subjective Subjective: Continues having diarrhea. This afternoon spiking a fever. Overall he is feeling a little bit better compared to how he was when he came in. No abdominal pain. Discussed with him and his regarding acute kidney injury as well, creatinine 1.6. He has been taking naproxen at home. Discussed with them to discontinue any NSAIDs. Vitals/I&O/Wt Last Vital Signs Temp 103.1 F H 08/03/21 11:19 Pulse 78 08/03/21 11:19 Resp 18 08/03/21 11:19 BP 119/67 08/03/21 11:19 Pulse Ox 90 08/03/21 11:19 08/02/21 08/03/21 08/03/21 22:59 06:59 14:59 Intake Total 200 / 1400 300 / 1700 1240 / 1240 Balance 200 / 1400 300 / 1700 1240 / 1240 Weight last 48 hrs Weight 88.088 kg Weight 89.811 kg Physical Exam Narrative: at bedside Const: COMMON NORMALS: alert GENERAL APPEARANCE: cooperative NUTRITIONAL APPEARANCE: overweight ORIENTATION/CONSCIOUSNESS: Yes awake HENMT: COMMON NORMALS: normocephalic, EAC's normal, Normal external nose present and moist oral mucous membranes HEAD & SCALP: normocephalic NOSE: Normal external nose present EXTERNAL AUDITORY CANAL: EAC's normal Neck/C-Spine: COMMON NORMALS: no meningeal signs Chest: CHEST: Yes Symmetrical chest wall rise Resp: COMMON NORMALS: clear to auscultation bilaterally AUSCULTATION: clear to auscultation bilaterally Cardio: COMMON NORMALS: regular rate, regular rhythm and No murmurs present (Cardio) RATE: regular rate RHYTHM: regular rhythm GI: COMMON NORMALS: Normal to inspection, nondistended, normoactive bowel sounds present, Soft to palpation and non-tender PALPATION: Yes Soft to palpation Extremity: COMMON NORMALS: no pedal edema Neuro: COMMON NORMALS: moves all extremities SENSORIUM/ORIENTATION: Yes alert MENINGEAL SIGNS: Yes no meningeal signs Psych: COMMON NORMALS: mental status grossly normal Skin: COMMON NORMALS: no wounds RASHES: no rashes Data : 08/03/21 04:22 08/03/21 04:22 Micro: Microbiology 08/02/21 10:05 Blood Culture - Preliminary Blood NEGATIVE TO DATE 08/02/21 10:09 Blood Culture - Preliminary Blood NEGATIVE TO DATE 08/02/21 20:02 C.difficile Toxin B Gene (PCR) - Final Stool - Stool Aspirate A&P Assessment and plan (1) Enteritis: Today with high fever 103.1. Continue IV ciprofloxacin and Flagyl. IV hydration. Continue Cipro, Flagyl. De-escalate diet to clears. Discussed with them C. difficile negative. Other stool studies pending. Status: Acute (2) TYLER (acute kidney injury): Creatinine 1.6. Discussed suspected combination secondary to enteritis with diarrhea and NSAIDs. Also on lisinopril at home. Discussed discontinuation of NSAIDs. Continue gentle IV fluid challenge. Hold lisinopril. Status: Acute (3) Fever: Secondary to enteritis/colitis. COVID-19 negative. Status: Acute (4) Diarrhea: Status: Acute (5) Lymphopenia: Status: Acute Plan PATTI: Nightly CPAP CAD A. fib HTN HLD Attestations Medical Necessity Statement*: Admission of regimen as needed for assessment of management of enteritis/colitis with fever, TYLER. Coding Level of Care Code Acute Sprinkling System Irrigator for g Fwd Diagnoses Enteritis K52.9 Fever R50.9 Diarrhea R19.7 Lymphopenia D72.810 TYLER (acute kidney injury) N17.9
[2021-08-04] MEDS: ciprofloxacin 400 MG/200 ML PREMIX 200 MG IV ×2 (02:30→13:46)
[2021-08-04 03:20] VITALS: BP 130/72; PULSE 66; RESP 17; TEMP 36.9; O2SAT 94
[2021-08-04] MEDS: heparin 5,000 unit/mL INJ 1 mL 5000 UNIT SUBCUT ×2 (05:16→13:50)
[2021-08-04 05:18] LABS: Basophils % 0.9 %; Eosinophils % 0.4 %; Hematocrit 29.9 % (42.0-52.0); Hemoglobin 10.7 g/dL (11.7-16.6); Lymphocytes # 0.3 10^3/uL (0.8-4.8); Lymphocytes % 12.4 %; Mean Corpuscular HGB Conc 35.8 g/dL (30.0-36.0); Mean Corpuscular Hemoglobin 30.3 pg (28.0-34.0); Mean Corpuscular Volume 84.7 fl (80-94); Mean Platelet Volume 10.7 fL (7.4-10.4); Monocytes # 0.2 10^3/uL (0.2-0.9); Monocytes % 7.7 %; Neutrophils # 1.82 10^3/uL (1.8-7.7); Neutrophils % 78.2 %; Nucleated Red Blood Cells % 0 %; Platelet Count 89 10^3/cmm (130-400); Red Blood Count 3.53 10^6/uL (4.1-5.3); White Blood Count 2.3 10^3/uL (4.0-10.0)
[2021-08-04] MEDS: metroNIDAZOLE IV 500 MG/100 ML PREMIX 100 MG IV ×2 (05:18→15:51)
[2021-08-04 05:35] LABS: Alanine Aminotransferase 19 U/L (0-41); Albumin Level 3.4 g/dL (3.5-5.2); Alkaline Phosphatase 52 IU/L (40-130); Anion Gap 15.5 (5-19); Aspartate Amino Transferase 32 U/L (0-40); Blood Urea Nitrogen 27 mg/dL (8-23); Calcium 8.6 mg/dL (8.5-10.5); Carbon Dioxide 20 mmol/L (22-29); Chloride 102 mmol/L (98-107); Globulin 3.4 g/dL (1.3-4.6); Glucose 106 mg/dL (65-115); Osmolality Calculated 284 mOsm/kg (285-295); Potassium 3.5 mmol/L (3.5-5.1); Sodium 134 mmol/L (136-145); Total Bilirubin 1.9 mg/dL (0.15-1.2); Total Protein 6.8 g/dL (6.6-8.7)
[2021-08-04 05:50] LABS: Slide Review Slide Review Perform
[2021-08-04 07:51] VITALS: BP 127/66; PULSE 60; RESP 16; TEMP 36.6; O2SAT 95
[2021-08-04 08:00] VITALS: PULSE 76; O2SAT 96
[2021-08-04] MEDS: isosorbide mononitrate ER 30 mg Tablet PO (08:39)
[2021-08-04] MEDS: aspirin 81 mg EC Tablet PO (08:39)
[2021-08-04] MEDS: amlodipine 5 mg Tablet PO (08:39)
[2021-08-04] MEDS: pantoprazole DR 40 mg Tablet PO (08:39)
[2021-08-04] MEDS: montelukast sodium 10 mg Tablet PO (08:39)
[2021-08-04] MEDS: sotalol 80 mg Tablet 120 MG PO (08:39)
[2021-08-04] MEDS: tamsulosin 0.4 mg Capsule PO (08:40)
[2021-08-04] MEDS: clopidogrel 75 mg Tablet PO (08:40)
[2021-08-04] MEDS: atorvastatin 40 mg Tablet 20 MG PO (08:40)
[2021-08-04 12:00] VITALS: BP 126/66; PULSE 59; RESP 19; TEMP 36.6; O2SAT 96
[2021-08-04 15:41] VITALS: BP 120/67; PULSE 94; RESP 16; TEMP 36.7; O2SAT 95
[2021-08-04] MEDS: lactated ringers 1,000 ML 75 ML IV (15:51)
--- NOTE | 2021-08-04 16:31 | PM.DCS ---
Discharge Providers Date of Admission: 08/03/21 18:11 Date of Discharge: August 04, 2021 Attending Provider at Admission: Charles Cueva Attending Provider at Discharge: Charles Cueva Primary Care Provider: Kam Regan MD Diagnoses at Discharge Discharge Diagnosis (1) Enteritis: Status: Acute (2) TYLER (acute kidney injury): Status: Acute (3) Fever: Status: Acute (4) Diarrhea: Status: Acute (5) Lymphopenia: Status: Acute Reason for Visit Reason for Visit: flu like symptoms Hospital Course Hospital Course Pleasant 80-year-old gentleman was admitted after presenting with persistent nonbloody/nonmelanotic diarrhea, with fever, malaise. Leukopenia, lymphopenia. Mild thrombocytopenia. Chronic. Coronavirus PCR was negative. CT abdomen pelvis with fluid in colon possible infectious/inflammatory enteritis/colitis. Treated empirically with ciprofloxacin and Flagyl while in the hospital. C. difficile negative, but stool coming back positive for Salmonella DNA by PCR. With Salmonella enteritis, enteric fever, continues on ciprofloxacin to complete 12 more days to reduce chance of chronic carriage. Please follow-up for resolution of symptoms. Follow-up also incidentally noted increased bilirubin which appears to be chronic. He is not sure where he may have gotten it. His daughter was recently sick and had to be put down. He otherwise does not been having any fresh eggs, reptiles, although has had some peanut butter, and we are going to trend serial number on the GFR given recent recall. The only food he had eaten outside he can think of would be a whopper at [facility]. He overall has been doing much better, really wants to return home today. No fever since last night. Knows to return to hospital in case of increasing frequency of fever, abdominal pain, inability to tolerate oral intake or any other concerning symptoms. On presentation also with acute kidney injury, creatinine 1.6, previously up to 1.1. Received gentle fluid challenge in the hospital with IV hydration, with improvement in creatinine down to 1.5. Discussed with him about not taking any more naproxen or any other NSAIDs. Lisinopril held for now, please reassess renal function, consider resumption when renal function is stable. Physical Exam Narrative: at bedside Const: COMMON NORMALS: alert GENERAL APPEARANCE: cooperative NUTRITIONAL APPEARANCE: overweight ORIENTATION/CONSCIOUSNESS: Yes awake HENMT: COMMON NORMALS: normocephalic, EAC's normal, Normal external nose present and moist oral mucous membranes HEAD & SCALP: normocephalic NOSE: Normal external nose present EXTERNAL AUDITORY CANAL: EAC's normal Neck/C-Spine: COMMON NORMALS: no meningeal signs Chest: CHEST: Yes Symmetrical chest wall rise Resp: COMMON NORMALS: clear to auscultation bilaterally AUSCULTATION: clear to auscultation bilaterally Cardio: COMMON NORMALS: regular rate, regular rhythm and No murmurs present (Cardio) RATE: regular rate RHYTHM: regular rhythm GI: COMMON NORMALS: Normal to inspection, nondistended, normoactive bowel sounds present, Soft to palpation and non-tender PALPATION: Yes Soft to palpation Extremity: COMMON NORMALS: no pedal edema Neuro: COMMON NORMALS: moves all extremities SENSORIUM/ORIENTATION: Yes alert MENINGEAL SIGNS: Yes no meningeal signs Psych: COMMON NORMALS: mental status grossly normal Skin: COMMON NORMALS: no wounds RASHES: no rashes Discharge Data Studies Completed and Pending Completed Studies During Hospitalization Category Date Time Status CT abdomen pelvis wo con [id number] Stat Cat Scan 08/02/21 09:38 Completed XR chest 1V portable [id number] Urgent Exams 08/02/21 09:19 Completed Pending at discharge Category Date Time Status Blood Culture Stat Lab 08/02/21 10:05 Results Complete Blood Count w/Auto AM LABS Lab 08/05/21 04:00 Ordered Comprehensive Metabolic Panel AM LABS Lab 08/05/21 04:00 Ordered OVA and Parasites, Conc and PE Routine Lab 08/02/21 20:02 Received Radiology Impressions Chest X-Ray 08/02/21 09:19 IMPRESSION: 1. No acute cardiopulmonary finding. Abdomen/Pelvis CT 08/02/21 09:38 IMPRESSION: Fluid prominence in the colon could indicate prominent secretions due to infectious/inflammatory enteritis/colitis. Laboratory Results WBC 2.3 10^3/uL (4.0-10.0) L 08/04/21 04:50 RBC 3.53 10^6/uL (4.1-5.3) L 08/04/21 04:50 Hgb 10.7 g/dL (11.7-16.6) L 08/04/21 04:50 Hct 29.9 % (42.0-52.0) L 08/04/21 04:50 MCV 84.7 fl (80-94) 08/04/21 04:50 MCH 30.3 pg (28.0-34.0) 08/04/21 04:50 MCHC 35.8 g/dL (30.0-36.0) D 08/04/21 04:50 RDW 14.0 % (12.1-15.1) 08/04/21 04:50 Plt Count 89 10^3/cmm (130-400) L 08/04/21 04:50 MPV 10.7 fL (7.4-10.4) H 08/04/21 04:50 Neut % (Auto) 78.2 % 08/04/21 04:50 Lymph % (Auto) 12.4 % 08/04/21 04:50 [place] % (Auto) 7.7 % 08/04/21 04:50 Eos % (Auto) 0.4 % 08/04/21 04:50 Baso % (Auto) 0.9 % 08/04/21 04:50 Neut # (Auto) 1.82 10^3/uL (1.8-7.7) 08/04/21 04:50 Lymph # (Auto) 0.3 10^3/uL (0.8-4.8) L 08/04/21 04:50 [place] # (Auto) 0.2 10^3/uL (0.2-0.9) 08/04/21 04:50 Eos # (Auto) 0.0 10^3/uL (0.0-0.8) 08/04/21 04:50 Baso # (Auto) 0.0 10^3/uL (0.0-0.1) 08/04/21 04:50 Nucleated RBC % (auto) 0 % 08/04/21 04:50 Nucleated RBCs # 0.0 /100WBC 08/04/21 04:50 Sodium 134 mmol/L (136-145) L 08/04/21 04:50 Potassium 3.5 mmol/L (3.5-5.1) 08/04/21 04:50 Chloride 102 mmol/L (98-107) 08/04/21 04:50 Carbon Dioxide 20 mmol/L (22-29) L 08/04/21 04:50 Anion Gap 15.5 (5-19) 08/04/21 04:50 BUN 27 mg/dL (8-23) H 08/04/21 04:50 Creatinine 1.5 mg/dL (0.7-1.2) H 08/04/21 04:50 GFR Calculation Not Reportable 08/04/21 04:50 Glucose 106 mg/dL (65-115) 08/04/21 04:50 Calculated Osmolality 284 mOsm/kg (285-295) L 08/04/21 04:50 Lactate 2.0 mmol/L (0.5-2.2) 08/02/21 10:09 Calcium 8.6 mg/dL (8.5-10.5) 08/04/21 04:50 Magnesium 2.0 mg/dL (1.7-2.3) 08/02/21 08:30 Total Bilirubin 1.9 mg/dL (0.15-1.2) H 08/04/21 04:50 AST 32 U/L (0-40) 08/04/21 04:50 ALT 19 U/L (0-41) 08/04/21 04:50 Alkaline Phosphatase 52 IU/L (40-130) 08/04/21 04:50 Troponin T Baseline 9 ng/L (0-15) 08/02/21 08:30 Troponin T 120 Minute 7.78 ng/L (0-15) 08/02/21 10:09 Delta Troponin T -1.22 ABS# (0-10) L 08/02/21 10:09 Troponin T Hi Sens 6Hr 9.14 ng/L (0-15) 08/02/21 14:31 Troponin T Hi Sens 6Hr Delta 0.14 ng/L (0-12) 08/02/21 14:31 Total Protein 6.8 g/dL (6.6-8.7) 08/04/21 04:50 Albumin 3.4 g/dL (3.5-5.2) L 08/04/21 04:50 Globulin 3.4 g/dL (1.3-4.6) 08/04/21 04:50 Procalcitonin 0.10 ng/mL (0-0.5) 08/02/21 08:30 TSH 1.17 uIU/mL (0.27-4.20) 08/02/21 08:30 Urine Color Yellow (Yellow) 08/02/21 09:48 Urine Appearance Clear (CLEAR) 08/02/21 09:48 Urine pH 5 (5-7) 08/02/21 09:48 Ur Specific [place] 1.025 (1.005-1.030) 08/02/21 09:48 Urine Protein Neg (Negative) 08/02/21 09:48 Urine Glucose (UA) Norm (Normal) 08/02/21 09:48 Urine Ketones 1+ (Negative) H 08/02/21 09:48 Urine Blood Neg (Negative) 08/02/21 09:48 Urine Nitrate Negative (Negative) 08/02/21 09:48 Urine Bilirubin 1+ (Negative) H 08/02/21 09:48 Urine Urobilinogen Norm mg/dL (Negative) 08/02/21 09:48 Ur Leukocyte Esterase Negative (Negative) 08/02/21 09:48 Coronavirus 229E (PCR) Not detected (NOT DETECT) 08/02/21 09:34 SARS-CoV-2 (PCR) Not detected (NOT DETECT) 08/02/21 09:34 Vitals Last Vital Signs Temp 98.1 F 08/04/21 15:41 Pulse 94 08/04/21 15:41 Resp 16 08/04/21 15:41 BP 120/67 08/04/21 15:41 Pulse Ox 95 08/04/21 15:41 Discharge Plan Discharge Patient Disposition: Home Health Service Condition: Stable Prescriptions: New ciprofloxacin HCl [Cipro] 500 mg tablet 500 mg PO BID 12 Days Qty: 24 0RF Continued montelukast 10 mg tablet 10 mg PO DAILY 0RF pantoprazole [Protonix] 20 mg tablet,delayed release (DR/EC) 20 mg PO BID 0RF magnesium oxide 400 mg magnesium capsule 400 mg PO BID 0RF atorvastatin 20 mg tablet 20 mg PO DAILY 0RF clopidogrel [Plavix] 75 mg tablet 75 mg PO DAILY 0RF isosorbide mononitrate 30 mg tablet extended release 24 hr 30 mg PO BID 0RF sotalol 120 mg tablet 120 mg PO BID 0RF tamsulosin 0.4 mg capsule 0.4 mg PO DAILY 0RF aspirin [Adult Low Dose Aspirin] 81 mg tablet,delayed release (DR/EC) 81 mg PO DAILY 0RF nitroglycerin [Nitrostat] 0.4 mg tablet, sublingual 0.4 mg SUBLINGUAL Q5M PRN (Reason: Chest Pain) 0RF cetirizine [Zyrtec] 10 mg tablet 5 mg PO DAILY PRN (Reason: allergies) 0RF amlodipine 5 mg tablet 5 mg PO DAILY 0RF Discontinued lisinopril 20 mg tablet 20 mg PO BID 0RF naproxen 500 mg tablet 500 mg PO BID PRN (Reason: Pain) 0RF Discharge Orders: Discharge Order (Routine); Ordered 08/04/21 Ordered By: Charles Cueva Referrals: [facility] ([facility]) [Outside] Kam Regan MD [Primary Care Provider] - 4-7 days Discharge Diet: Advance as tolerated and Full LIquid Discharge Activity: Increase activity as tolerated Patient Instructions: Acute Kidney Injury (GEN), Salmonella Infection (GEN) Activity Restrictions/Additional Instructions: Please follow-up with your primary doctor regarding Salmonella enteritis. Antibiotic fever. Complete antibiotic course with additional 12 days of ciprofloxacin to reduce chance of chronic carriage of Salmonella. Please follow-up with your primary doctor also regarding acute kidney injury. Do not take any more naproxen. Please hold lisinopril for now as well until your kidney function can be reassessed and found stable. Use acetaminophen if needed for usual aches or pains. In case you experience increasing frequency of fever, abdominal pain, inability to tolerate oral intake, or any other concerning findings, seek medical attention in ER. Discharge Attestations Time Spent in Discharge Care*: greater than 30 min Quality Metrics Clinical Quality Measures [ No reported AMI, CVA or VTE this stay] Coding Level of Care Code Acute g [facility] note Diagnoses Enteritis K52.9 TYLER (acute kidney injury) N17.9 Fever R50.9 Diarrhea R19.7 Lymphopenia D72.810
[2021-08-04 17:44] VITALS: BP 120/67; PULSE 94; RESP 16; TEMP 36.7; O2SAT 95
== END 2021-08-04 17:40 | disposition home health service (06) | DRG 372 ==
LOC: ER 15:02 → MEDSURG 16:01
PROVIDERS: Admitting Provider Internal Medicine; Emergency Provider Emergency Medicine; PCP Family Medicine; Visit Provider Internal Medicine
DX: A02.0 Salmonella enteritis (principal); N17.9 Acute kidney failure, unspecified; I10 Essential (primary) hypertension; E78.5 Hyperlipidemia, unspecified; I25.10 Atherosclerotic heart disease of native coronary artery without angina pectoris; I48.91 Unspecified atrial fibrillation; G47.33 Obstructive sleep apnea (adult) (pediatric); D69.6 Thrombocytopenia, unspecified; Z79.02 Long term (current) use of antithrombotics/antiplatelets; Z79.82 Long term (current) use of aspirin
CPT/HCPCS: 36415; 71045; 74176; 80053; 81003; 83605; 83735; 84145; 84443; 84484; 85025; 87040; 87177; 87209; 87493; 87506; 87635; 93005; 94660; 94664; 96365; 96367; 96372; 96375; 99285; G0378; J0744; J1644; J2405; J7030; S0030

== ENCOUNTER → 2021-08-13 13:05 | Outpatient (BNVA) | payer MEDICARE, OTHER, SELFPAY | PROVIDERS: PCP Family Medicine; Visit Provider Family Medicine | DX: A02.9 Salmonella infection, unspecified (principal) | CPT/HCPCS: 80053; 85025 ==

== ENCOUNTER → 2021-08-30 07:38 | Outpatient (BNVA) | payer MEDICARE, OTHER, SELFPAY | PROVIDERS: PCP Family Medicine; Visit Provider Family Medicine | DX: R19.7 Diarrhea, unspecified (principal) | CPT/HCPCS: 87506 ==

== ENCOUNTER → 2021-09-02 11:55 | Outpatient (BNVA) | payer MEDICARE, OTHER, SELFPAY | PROVIDERS: PCP Family Medicine; Visit Provider Family Medicine | DX: R19.7 Diarrhea, unspecified (principal) | CPT/HCPCS: 83630; 87493; 87506 ==

== ENCOUNTER → 2021-09-23 09:20 | Outpatient (BNVA) | payer MEDICARE, OTHER, SELFPAY | PROVIDERS: PCP Family Medicine; Visit Provider Family Medicine | DX: A02.9 Salmonella infection, unspecified (principal) | CPT/HCPCS: 80053; 85025 ==

== ENCOUNTER → 2022-01-06 16:09 | Outpatient (BNVA) | payer MEDICARE, OTHER, SELFPAY | PROVIDERS: PCP Family Medicine; Visit Provider Family Medicine | DX: C44.329 Squamous cell carcinoma of skin of other parts of face (principal) | CPT/HCPCS: 88304 ==

== ENCOUNTER → 2022-01-20 14:25 | Outpatient (BNVA) | payer MEDICARE, OTHER, SELFPAY | PROVIDERS: PCP Family Medicine; Visit Provider Internal Medicine Cardiovascular Disease | DX: I25.10 Atherosclerotic heart disease of native coronary artery without angina pectoris (principal); I48.19 Other persistent atrial fibrillation; I10 Essential (primary) hypertension | CPT/HCPCS: 99214 ==

== ENCOUNTER 2022-02-05 17:25 | Emergency (ER) | payer MEDICARE, OTHER, SELFPAY ==
[2022-02-05 17:26] VITALS: BP 130/70; PULSE 64; RESP 16; TEMP 37.2; O2SAT 95; BMI 32.4
--- NOTE | 2022-02-05 17:34 | ECG_ITS ---
[facility] Test Date: 2022-02-05 Pat Name: Ky Najera Department: Room: Gender: Male Disability Program Navigator: : 1940 Requested By: Jarod Montesinos Order Number: [id number] Renetta MD: Chevy Charles M.D. Measurements Intervals [place] Rate: 63 P: 30 VT: 252 QRS: -7 QRSD: 82 T: 53 QT: 414 QTc: 424 Interpretive Statements SINUS RHYTHM WITH FIRST DEGREE AV BLOCK Compared to ECG 08/02/2021 16:48:53 No significant changes Electronically Signed On 02-06-2022 21:00:03 HOG PUSHER by Chevy Charles M.D. [id number]
--- NOTE | 2022-02-05 17:35 | CTR_ITS ---
PROCEDURE INFORMATION: Exam: CT Head Without Contrast Exam date and time: 02/05/2022 6:35 PM Age: 81 years old Clinical indication: Condition or disease; Convulsions or seizures; Additional info: Seizure TECHNIQUE: Imaging protocol: Computed tomography of the head without contrast. Sagittal and coronal reformatted images were created and reviewed. Radiation optimization: All CT scans at this facility use at least one of these dose optimization techniques: automated exposure control; mA and/or kV adjustment per patient size (includes targeted exams where dose is matched to clinical indication); or iterative reconstruction. COMPARISON: CT head wo con* [id number] 10/30/2018 5:18 PM RADIATION DOSE METRICS: Total DLP (mGy-cm): 1107.38 FINDINGS: Brain: No acute intracranial hemorrhage. No acute infarct. No intra-axial or extra-axial masses. Beltran-white matter differentiation is preserved. No cerebral edema. No extra-axial fluid collections. No midline shift. No evidence for Chiari 1 malformation. Stable mild atrophy of the brain parenchyma. Stable mildly decreased attenuation in the deep white matter, consistent with mild chronic microangiopathic change. Cerebral ventricles: No hydrocephalus. Paranasal sinuses: Moderate mucoperiosteal thickening in the visualized right and left sinuses, increased on the right but improved on the left. Stable opacification in a posterior left ethmoid sinus. Mastoid air cells: Mastoid air cells are clear bilaterally. Orbital cavities: Globes and lenses, extraocular muscles, and optic nerves are intact bilaterally. No acute intraorbital abnormality. Bones/joints: No acute fracture. Soft tissues: No acute abnormality of the extracranial soft tissues. Vasculature: Stable mild atherosclerotic changes in the visualized arteries. CT/CT head wo con* [id number] IMPRESSION: 1. No acute abnormality of the brain. 2. Stable mild atrophy of the brain parenchyma. 3. Stable mild chronic white matter microangiopathic change. 4. Moderate mucoperiosteal thickening in the visualized right and left sinuses, increased on the right but improved on the left. Stable opacification in a posterior left ethmoid sinus. 5. Incidental/nonacute findings are listed in the report.
--- NOTE | 2022-02-05 17:54 | ED_ITS ---
Documented by User: Jarod Jackson DO 02/06/22 06:24 HPI - Seizure General: Chief Complaint: Seizure Stated Complaint: SEIZURES Time Seen by Provider: 02/05/22 17:28 Source: patient Mode of arrival: ambulatory History of Present Illness: HPI Narrative: 81-year-old male presents emergency room via EMS. EMS was called by family for seizure-like activities. They reported rhythmic like movements in both arms particularly his hands. Is described by the family as uncontrollable shaking his upper extremities. When they arrived he was still having these episodes he was given 2 mg of IV Ativan in the field. By time he arrived here he is very sleepy and somewhat lethargic almost due to the Ativan but he states he feels much better his movement disorder has resolved. He remembers the entire episode. There is no loss of bowel or bladder control he has no history of cancer and he is not previously had any known seizures MD complaint: possible seizure Onset (ago): minute(s) Witnessed: Yes - by Bystander Trauma: No Seizure History: No Place: Home Associated symptoms: Deny chest pain, chills, confusion, cough, diaphoresis, fever(s), anorexia, malaise, rash, short of breath, syncope or weakness Treatments prior to arrival: none Review of Systems Const: Denies: fever(s), chills, malaise or diaphoresis ENMT: Denies: throat pain, ear or mastoid pain, nasal discharge or nasal congestion Card: Denies: chest pain or syncope Resp: Denies: dyspnea, productive cough or non-productive cough GI: Denies: abdominal pain, nausea, vomiting, hematemesis, coffee ground emesis, diarrhea, constipation, bloating, hematochezia or melena : Denies: flank pain, dysuria, urinary frequency or urinary urgency Skin/Breast: Denies: rash or pruritus Neuro: Denies: confusion PFSH ED PFSH: Medical History Arteriosclerotic coronary artery disease Atrial fibrillation Coronary artery disease HTN (hypertension) Hyperlipidemia PATTI (obstructive sleep apnea) Salmonella enteritis Surgical History S/P cholecystectomy S/P PTCA (percutaneous transluminal coronary angioplasty) Family History Other Cancer Social History Smoking and tobacco status: never smoked Alcohol intake: never Lives independently: Yes Household members: spouse and children Marital status: Physical Exam Const: GENERAL APPEARANCE: cooperative and comfortable ORIENTATION/CONSCIOUSNESS: Yes awake, Yes oriented to person, Yes oriented to place and Yes oriented to time HENMT: COMMON NORMALS: normocephalic, atraumatic and hearing grossly normal bilaterally HEAD & SCALP: normocephalic and atraumatic Resp: COMMON NORMALS: normal respiratory effort, No retractions, No use of accessory muscles and clear to auscultation bilaterally AUSCULTATION: clear to auscultation bilaterally Cardio: COMMON NORMALS: regular rate, regular rhythm and No murmurs present (Cardio) RATE: regular rate RHYTHM: regular rhythm GI: COMMON NORMALS: Soft to palpation and No hepatosplenomegaly present AUSCULTATION: Yes normoactive bowel sounds PALPATION: Yes Soft to palpation, No Tenderness to palpation present (GI), No Guarding due to palpation present (GI) and Yes No hepatosplenomegaly present Extremity: COMMON NORMALS: normal to inspection, capillary refill normal, no clubbing, cyanosis or edema, no calf tenderness and no pedal edema Neuro: SENSORIUM/ORIENTATION: Yes oriented to person, Yes oriented to place and Yes oriented to time Skin: COMMON NORMALS: no rashes or lesions noted GENERAL SKIN EXAM: no rashes or lesions noted Course Vital Signs: Vital signs: Vital Signs Temperature 99.0 F 02/05/22 17:26 Pulse Rate 60 02/05/22 21:38 Respiratory Rate 18 02/05/22 21:38 Blood Pressure 133/68 02/05/22 21:38 Pulse Oximetry 97 02/05/22 21:38 Oxygen Delivery Me thod 02/05/22 17:55 MDM - Seizure MDM Narrative Medical decision making narrative: Labs and imaging pending. His history does not sound as if it is actual seizure. Unfortunately is quite sedate now having received Ativan. Care signed out to Dr. Hui at change of shift. See final notes for diagnosis and disposition. By description does not sound as if he had a seizure. There is no head trauma no evidence of injury to the head no reports of falls. Because of new onset of these symptoms a head CT along with labs were ordered. Care signed out to Dr. Hui at change of shift. See final notes for diagnosis and disposition. Patient's head CT blood work are all normal he is able ambulate with. He has had a tremor with possible near syncopal event he is to follow-up with his PCP as scheduled next week return if worsening. Lab Data 02/05/22 17:49 02/05/22 17:49 Labs: Radiology Impressions Head CT 02/05/22 17:35 IMPRESSION: 1. No acute abnormality of the brain. 2. Stable mild atrophy of the brain parenchyma. 3. Stable mild chronic white matter microangiopathic change. 4. Moderate mucoperiosteal thickening in the visualized right and left sinuses, increased on the right but improved on the left. Stable opacification in a posterior left ethmoid sinus. 5. Incidental/nonacute findings are listed in the report. Laboratory Results WBC 3.0 10^3/uL (4.0-10.0) L 02/05/22 17:49 RBC 4.20 10^6/uL (4.1-5.3) 02/05/22 17:49 Hgb 12.0 g/dL (11.7-16.6) 02/05/22 17:49 Hct 36.9 % (42.0-52.0) L 02/05/22 17:49 MCV 87.9 fl (80-94) 02/05/22 17:49 MCH 28.6 pg (28.0-34.0) 02/05/22 17:49 MCHC 32.5 g/dL (30.0-36.0) 02/05/22 17:49 RDW 14.6 % (12.1-15.1) 02/05/22 17:49 Plt Count 97 10^3/cmm (130-400) L 02/05/22 17:49 MPV 10.3 fL (7.4-10.4) 02/05/22 17:49 Neut % (Auto) 71.8 % 02/05/22 17:49 Lymph % (Auto) 17.4 % 02/05/22 17:49 [place] % (Auto) 9.4 % 02/05/22 17:49 Eos % (Auto) 0.7 % 02/05/22 17:49 Baso % (Auto) 0.7 % 02/05/22 17:49 Neut # (Auto) 2.14 10^3/uL (1.8-7.7) 02/05/22 17:49 Lymph # (Auto) 0.5 10^3/uL (0.8-4.8) L 02/05/22 17:49 [place] # (Auto) 0.3 10^3/uL (0.2-0.9) 02/05/22 17:49 Eos # (Auto) 0.0 10^3/uL (0.0-0.8) 02/05/22 17:49 Baso # (Auto) 0.0 10^3/uL (0.0-0.1) 02/05/22 17:49 Nucleated RBC % (auto) 0 % 02/05/22 17:49 Nucleated RBCs # 0.0 /100WBC 02/05/22 17:49 Sodium 139 mmol/L (136-145) 02/05/22 17:49 Potassium 4.1 mmol/L (3.5-5.1) 02/05/22 17:49 Chloride 106 mmol/L (98-107) 02/05/22 17:49 Carbon Dioxide 26 mmol/L (22-29) 02/05/22 17:49 Anion Gap 11.1 (5-19) 02/05/22 17:49 BUN 21 mg/dL (8-23) 02/05/22 17:49 Creatinine 1.0 mg/dL (0.7-1.2) 02/05/22 17:49 GFR Calculation Not Reportable 02/05/22 17:49 Glucose 127 mg/dL (65-115) H 02/05/22 17:49 Calculated Osmolality 293 mOsm/kg (285-295) 02/05/22 17:49 Calcium 9.4 mg/dL (8.5-10.5) 02/05/22 17:49 Total Bilirubin 1.7 mg/dL (0.15-1.2) H 02/05/22 17:49 AST 16 U/L (0-40) 02/05/22 17:49 ALT 14 U/L (0-41) 02/05/22 17:49 Alkaline Phosphatase 82 U/L (40-130) 02/05/22 17:49 Total Protein 7.4 g/dL (6.6-8.7) 02/05/22 17:49 Albumin 4.1 g/dL (3.5-5.2) 02/05/22 17:49 Globulin 3.3 g/dL (1.3-4.6) 02/05/22 17:49 Discharge Plan Discharge Patient Disposition: Home Clinical Impression: Tremor, Near syncope Condition: Stable Prescriptions: No Action magnesium oxide 400 mg magnesium capsule 400 mg PO BID atorvastatin 20 mg tablet 20 mg PO DAILY clopidogrel [Plavix] 75 mg tablet 75 mg PO DAILY isosorbide mononitrate 30 mg tablet extended release 24 hr 30 mg PO BID tamsulosin 0.4 mg capsule 0.4 mg PO DAILY aspirin [Adult Low Dose Aspirin] 81 mg tablet,delayed release (DR/EC) 81 mg PO DAILY nitroglycerin [Nitrostat] 0.4 mg tablet, sublingual 0.4 mg SUBLINGUAL Q5M PRN (Reason: Chest Pain) cetirizine [Zyrtec] 10 mg tablet 5 mg PO DAILY PRN (Reason: allergies) amlodipine 5 mg tablet 5 mg PO DAILY sotalol 120 mg tablet 120 mg PO BID Qty: 180 3RF montelukast 10 mg tablet 10 mg PO DAILY Qty: 90 3RF pantoprazole [Protonix] 20 mg tablet,delayed release (DR/EC) 20 mg PO BID Qty: 180 3RF lidocaine-epinephrine 1 %-1:100,000 solution 1 ml SUBCUT ONCE Qty: 1 0RF lidocaine (PF) 10 mg/mL (1 %) solution 10 mg SUBCUT ONCE Qty: 1 0RF Discharge Orders: Discharge ED (Routine); Ordered 02/05/22 Ordered By: Rudy Hui Referrals: Kam Regan MD [Primary Care Provider] - 1-3 days Discharge Diet: Advance as tolerated Discharge Activity: Resume usual activity Patient Instructions: Near Syncope (ED), Tremors (ED) Coding Level of Care Code ED Laborer [place] for Chg Fwd Exam Detailed Documented by User: Rudy Hui MD 02/05/22 21:12 HPI - Seizure General: Chief Complaint: Seizure Stated Complaint: SEIZURES Time Seen by Provider: 02/05/22 17:28 [facility] ED PFSH: Medical History Arteriosclerotic coronary artery disease Atrial fibrillation Coronary artery disease HTN (hypertension) Hyperlipidemia PATTI (obstructive sleep apnea) Salmonella enteritis Surgical History S/P cholecystectomy S/P PTCA (percutaneous transluminal coronary angioplasty) Family History Other Cancer Social History Smoking and tobacco status: never smoked Alcohol intake: never Lives independently: Yes Household members: spouse and children Marital status: Course Vital Signs: Vital signs: Vital Signs Temperature 99.0 F 02/05/22 17:26 Pulse Rate 60 02/05/22 21:38 Respiratory Rate 18 02/05/22 21:38 Blood Pressure 133/68 02/05/22 21:38 Pulse Oximetry 97 02/05/22 21:38 Oxygen Delivery Me thod 02/05/22 17:55 MDM - Seizure MDM Narrative Medical decision making narrative: By description does not sound as if he had a seizure. There is no head trauma no evidence of injury to the head no reports of falls. Because of new onset of these symptoms a head CT along with labs were ordered. Care signed out to Dr. Hui at change of shift. See final notes for diagnosis and disposition. Patient's head CT blood work are all normal he is able ambulate with. He has had a tremor with possible near syncopal event he is to follow-up with his PCP as scheduled next week return if worsening. Lab Data 02/05/22 17:49 02/05/22 17:49 Labs: Radiology Impressions Head CT 02/05/22 17:35
[2022-02-05 17:55] VITALS: BP 131/68; PULSE 67; RESP 18; O2SAT 93
[2022-02-05 18:00] VITALS: BP 136/72; PULSE 63; RESP 20; O2SAT 96
[2022-02-05 18:06] LABS: Basophils % 0.7 %; Eosinophils % 0.7 %; Hematocrit 36.9 % (42.0-52.0); Lymphocytes # 0.5 10^3/uL (0.8-4.8); Lymphocytes % 17.4 %; Mean Corpuscular HGB Conc 32.5 g/dL (30.0-36.0); Mean Corpuscular Hemoglobin 28.6 pg (28.0-34.0); Mean Corpuscular Volume 87.9 fl (80-94); Mean Platelet Volume 10.3 fL (7.4-10.4); Monocytes # 0.3 10^3/uL (0.2-0.9); Monocytes % 9.4 %; Neutrophils # 2.14 10^3/uL (1.8-7.7); Neutrophils % 71.8 %; Nucleated Red Blood Cells % 0 %; Platelet Count 97 10^3/cmm (130-400); Red Cell Distribution Width 14.6 % (12.1-15.1)
[2022-02-05 18:14] LABS: Alanine Aminotransferase 14 U/L (0-41); Albumin Level 4.1 g/dL (3.5-5.2); Alkaline Phosphatase 82 U/L (40-130); Anion Gap 11.1 (5-19); Aspartate Amino Transferase 16 U/L (0-40); Blood Urea Nitrogen 21 mg/dL (8-23); Calcium 9.4 mg/dL (8.5-10.5); Carbon Dioxide 26 mmol/L (22-29); Chloride 106 mmol/L (98-107); Globulin 3.3 g/dL (1.3-4.6); Glucose 127 mg/dL (65-115); Osmolality Calculated 293 mOsm/kg (285-295); Potassium 4.1 mmol/L (3.5-5.1); Sodium 139 mmol/L (136-145); Total Bilirubin 1.7 mg/dL (0.15-1.2); Total Protein 7.4 g/dL (6.6-8.7)
[2022-02-05 18:30] VITALS: BP 136/70; PULSE 60; RESP 19; O2SAT 95
[2022-02-05 21:38] VITALS: BP 133/68; PULSE 60; RESP 18; O2SAT 97
== END 2022-02-05 21:30 | disposition home or self-care (01) ==
PROVIDERS: Family Medicine; Emergency Provider Emergency Medicine; PCP Family Medicine
DX: R55 Syncope and collapse (principal); R25.1 Tremor, unspecified; Z79.02 Long term (current) use of antithrombotics/antiplatelets; Z79.82 Long term (current) use of aspirin; I25.10 Atherosclerotic heart disease of native coronary artery without angina pectoris; I10 Essential (primary) hypertension; E78.5 Hyperlipidemia, unspecified
CPT/HCPCS: 36415; 70450; 80053; 85025; 93005; 99285

== ENCOUNTER 2022-02-07 03:29 | Inpatient (IN) | payer MEDICARE, OTHER, SELFPAY ==
[2022-02-07] VITALS (15 sets, daily range): BP systolic 104–117; BP diastolic 45–63; PULSE 59–94; RESP 14–30; TEMP 37.1–39.1; O2SAT 91–94; BMI 32.4
--- NOTE | 2022-02-07 03:33 | XRR_ITS ---
PROCEDURE INFORMATION: Exam: XR Chest Exam date and time: 02/07/2022 3:42 AM Age: 81 years old Clinical indication: Prior surgery; Surgery type: Coronary stent; Patient HX: Lethargy with fever. TECHNIQUE: Imaging protocol: Radiologic exam of the chest. Views: 1 view. COMPARISON: CR XR chest 1V portable [id number] 08/02/2021 10:15 AM FINDINGS: Lungs: Unremarkable. No consolidation. Pleural spaces: Unremarkable. No pleural effusion. No pneumothorax. Heart/Mediastinum: Large heart. Vasculature: Advanced diffuse vascular calcification noted. Bones/joints: Unremarkable. XR/XR chest 1V portable [id number] IMPRESSION: No acute findings.
--- NOTE | 2022-02-07 03:35 | W.ED.SOB ---
HPI - SOB/Dyspnea General: Chief Complaint: Fever Stated Complaint: fever, tremors Time Seen by Provider: 02/07/22 03:33 Source: patient and EMS Mode of arrival: EMS Limitations: no limitations History of Present Illness: HPI Narrative: 81-year-old male who states that over the last 24 hours he has been having cough chills body aches and fever he states tonight he became short of breath with increasing fever up to 102 he is 102.3 here. Patient is currently on 2 L oxygen he does not wear oxygen at baseline he was seen here a few days ago for a near syncopal episode and tremors states he been feeling fine from that started the symptoms yesterday. Denies any headache Associated symptoms: Reports fever(s); Deny abdominal pain, chest pain, nausea or vomiting Review of Systems Const: Reports: fever(s), chills and body aches Eyes: Denies: blurry vision or eye discomfort ENMT: Denies: throat pain or dental pain Card: Denies: chest pain Resp: Reports: dyspnea and non-productive cough GI: Denies: abdominal pain, nausea, vomiting or diarrhea : Denies: dysuria Musc: Denies: neck pain or back pain Skin/Breast: Denies: rash Neuro: Denies: headache(s) Psych: Denies: depression Luis M/Lymph: Denies: easy bruising All/Imm: Denies: urticaria PFSH ED PFSH: Medical History Arteriosclerotic coronary artery disease Atrial fibrillation Coronary artery disease HTN (hypertension) Hyperlipidemia PATTI (obstructive sleep apnea) Salmonella enteritis Surgical History S/P cholecystectomy S/P PTCA (percutaneous transluminal coronary angioplasty) Family History Other Cancer Social History Smoking and tobacco status: never smoked Alcohol intake: never Lives independently: Yes Household members: spouse and children Marital status: Physical Exam Const: COMMON NORMALS: patient oriented x3 GENERAL APPEARANCE: ill appearing HENMT: COMMON NORMALS: normocephalic and atraumatic HEAD & SCALP: normocephalic and atraumatic Eye: COMMON NORMALS: Equal, round and reactive pupils present and EOMs intact bilaterally PUPIL: Yes Equal, round and reactive pupils present Neck/C-Spine: COMMON NORMALS: full ROM and supple Chest: COMMONS NORMALS: normal inspection of the chest and normal palpation of entire chest wall Resp: COMMON NORMALS: No retractions and No use of accessory muscles EFFORT & INSPECTION: Yes tachypneic Cardio: COMMON NORMALS: regular rate, regular rhythm and No murmurs present (Cardio) RATE: regular rate RHYTHM: regular rhythm GI: COMMON NORMALS: Normal to inspection, nondistended, normoactive bowel sounds present, Soft to palpation, non-tender and no masses PALPATION: Yes Soft to palpation Extremity: COMMON NORMALS: normal to inspection and full ROM Neuro: COMMON NORMALS: patient oriented x3, moves all extremities and no focal motor deficits Psych: COMMON NORMALS: mental status grossly normal, Normal thought process present and cooperative THOUGHT PROCESS: Normal thought process present Skin: COMMON NORMALS: no rashes or lesions noted and no wounds GENERAL SKIN EXAM: no rashes or lesions noted Course Vital Signs: Vital signs: Vital Signs Temperature 102.3 F H 02/07/22 03:33 Pulse Rate 94 02/07/22 03:33 Respiratory Rate 16 02/07/22 03:33 Blood Pressure 117/60 02/07/22 03:33 Pulse Oximetry 94 02/07/22 03:33 Oxygen Delivery Me thod 02/07/22 03:33 MDM - SOB/Dyspnea Medical Decision Making Patient presents here with weakness along with a fever he was seen here 2 days ago for near syncopal event along with a tremor his fevers been going on for a day has flulike symptoms his work-up here is normal no source found he does not have a headache no neck pain no signs of meningitis due to his weakness we will admit him for observation. Lab Data 02/07/22 03:46 02/07/22 03:46 Labs/Radiology: Radiology Impressions Cervical Spine CT 02/07/22 03:43 IMPRESSION: No acute injury. Head CT 02/07/22 03:43 IMPRESSION: No acute intracranial injury. Laboratory Results WBC 5.0 10^3/uL (4.0-10.0) 02/07/22 03:46 RBC 4.24 10^6/uL (4.1-5.3) 02/07/22 03:46 Hgb 12.1 g/dL (11.7-16.6) 02/07/22 03:46 Hct 37.1 % (42.0-52.0) L 02/07/22 03:46 MCV 87.5 fl (80-94) 02/07/22 03:46 MCH 28.5 pg (28.0-34.0) 02/07/22 03:46 MCHC 32.6 g/dL (30.0-36.0) 02/07/22 03:46 RDW 14.9 % (12.1-15.1) 02/07/22 03:46 Plt Count 105 10^3/cmm (130-400) L 02/07/22 03:46 MPV 10.8 fL (7.4-10.4) H 02/07/22 03:46 Neut % (Auto) 81.6 % 02/07/22 03:46 Lymph % (Auto) 9.7 % 02/07/22 03:46 [place] % (Auto) 7.9 % 02/07/22 03:46 Eos % (Auto) 0.2 % 02/07/22 03:46 Baso % (Auto) 0.4 % 02/07/22 03:46 Neut # (Auto) 4.11 10^3/uL (1.8-7.7) 02/07/22 03:46 Lymph # (Auto) 0.5 10^3/uL (0.8-4.8) L 02/07/22 03:46 [place] # (Auto) 0.4 10^3/uL (0.2-0.9) 02/07/22 03:46 Eos # (Auto) 0.0 10^3/uL (0.0-0.8) 02/07/22 03:46 Baso # (Auto) 0.0 10^3/uL (0.0-0.1) 02/07/22 03:46 Nucleated RBC % (auto) 0 % 02/07/22 03:46 Nucleated RBCs # 0.0 /100WBC 02/07/22 03:46 PT 14.20 SECONDS (12.1-14.9) 02/07/22 03:46 INR 1.07 (0.8-1.2) 02/07/22 03:46 Sodium 134 mmol/L (136-145) L 02/07/22 03:46 Potassium 4.1 mmol/L (3.5-5.1) 02/07/22 03:46 Chloride 101 mmol/L (98-107) 02/07/22 03:46 Carbon Dioxide 23 mmol/L (22-29) 02/07/22 03:46 Anion Gap 14.1 (5-19) 02/07/22 03:46 BUN 22 mg/dL (8-23) 02/07/22 03:46 Creatinine 1.1 mg/dL (0.7-1.2) 02/07/22 03:46 GFR Calculation Not Reportable 02/07/22 03:46 Glucose 204 mg/dL (65-115) H 02/07/22 03:46 Calculated Osmolality 287 mOsm/kg (285-295) 02/07/22 03:46 Lactate 2.0 mmol/L (0.5-2.2) 02/07/22 03:46 Calcium 9.3 mg/dL (8.5-10.5) 02/07/22 03:46 Magnesium 1.8 mg/dL (1.7-2.3) 02/07/22 03:46 Total Bilirubin 2.2 mg/dL (0.15-1.2) H 02/07/22 03:46 AST 16 U/L (0-40) 02/07/22 03:46 ALT 14 U/L (0-41) 02/07/22 03:46 Alkaline Phosphatase 90 U/L (40-130) 02/07/22 03:46 Total Protein 7.4 g/dL (6.6-8.7) 02/07/22 03:46 Albumin 4.1 g/dL (3.5-5.2) 02/07/22 03:46 Globulin 3.3 g/dL (1.3-4.6) 02/07/22 03:46 Urine Color Yellow (Yellow) 02/07/22 04:52 Urine Appearance Clear (CLEAR) 02/07/22 04:52 Urine pH 5 (5-7) 02/07/22 04:52 Ur Specific [place] 1.020 (1.005-1.030) 02/07/22 04:52 Urine Protein Neg (Negative) 02/07/22 04:52 Urine Glucose (UA) 1+ (Normal) H 02/07/22 04:52 Urine Ketones Negative (Negative) 02/07/22 04:52 Urine Blood Neg (Negative) 02/07/22 04:52 Urine Nitrate Negative (Negative) 02/07/22 04:52 Urine Bilirubin 1+ (Negative) H 02/07/22 04:52 Urine Urobilinogen Norm mg/dL (Negative) 02/07/22 04:52 Ur Leukocyte Esterase Negative (Negative) 02/07/22 04:52 Influenza Type A Ag negative (Negative) 02/07/22 03:50 Influenza Type B Ag negative (Negative) 02/07/22 03:50 SARS-CoV-2 Ag (Rapid) negative (Negative) 02/07/22 03:50 EKG Data EKG 1: I personally reviewed and interpreted this EKG as follows: EKG Interpretation Date: 02/07/22 EKG interpretation time: 04:18 Interpretation: nsr hr [address] or t wave abnomalities qrs 82 qtc 402 Discharge Plan Discharge Condition: Stable Prescriptions: No Action magnesium oxide 400 mg magnesium capsule 400 mg PO BID atorvastatin 20 mg tablet 20 mg PO DAILY clopidogrel [Plavix] 75 mg tablet 75 mg PO DAILY isosorbide mononitrate 30 mg tablet extended release 24 hr 30 mg PO BID tamsulosin 0.4 mg capsule 0.4 mg PO DAILY aspirin [Adult Low Dose Aspirin] 81 mg tablet,delayed release (DR/EC) 81 mg PO DAILY nitroglycerin [Nitrostat] 0.4 mg tablet, sublingual 0.4 mg SUBLINGUAL Q5M PRN (Reason: Chest Pain) cetirizine [Zyrtec] 10 mg tablet 5 mg PO DAILY PRN (Reason: allergies) amlodipine 5 mg tablet 5 mg PO DAILY sotalol 120 mg tablet 120 mg PO BID Qty: 180 3RF montelukast 10 mg tablet 10 mg PO DAILY Qty: 90 3RF pantoprazole [Protonix] 20 mg tablet,delayed release (DR/EC) 20 mg PO BID Qty: 180 3RF lidocaine-epinephrine 1 %-1:100,000 solution 1 ml SUBCUT ONCE Qty: 1 0RF lidocaine (PF) 10 mg/mL (1 %) solution 10 mg SUBCUT ONCE Qty: 1 0RF Referrals: Spurling,Kam K, MD [Primary Care Provider] - Coding Level of Care Code ED Horticulturalist for Chg Fwd Exam Comprehensive
--- NOTE | 2022-02-07 03:43 | CTR_ITS ---
PROCEDURE INFORMATION: Exam: CT Cervical Spine Without Contrast Exam date and time: 02/07/2022 3:57 AM Age: 81 years old Clinical indication: Injury or trauma; Blunt trauma; Patient HX: Fall at home with head strike. Patient very lethargic with fever. On anticoagulants. TECHNIQUE: Imaging protocol: Computed tomography of the cervical spine without contrast. Radiation optimization: All CT scans at this facility use at least one of these dose optimization techniques: automated exposure control; mA and/or kV adjustment per patient size (includes targeted exams where dose is matched to clinical indication); or iterative reconstruction. COMPARISON: OT NM bone scan whole body* [id number] 03/04/2017 8:05 AM RADIATION DOSE METRICS: Total DLP (mGy-cm): 179.97 FINDINGS: Bones/joints: There are mild to moderate degenerative changes present. Normal alignment. No acute fractures. Lungs: Lung apices are normal. Vasculature: Carotid atherosclerotic calcification. Soft tissues: Unremarkable. CT/CT cervical spin wo con* [id number] IMPRESSION: No acute injury.
--- NOTE | 2022-02-07 03:43 | CTR_ITS ---
PROCEDURE INFORMATION: Exam: CT Head Without Contrast Exam date and time: 02/07/2022 3:54 AM Age: 81 years old Clinical indication: Injury or trauma; Blunt trauma (contusions or hematomas); Patient HX: Fall at home with head strike. Patient very lethargic with fever. On anticoagulants. TECHNIQUE: Imaging protocol: Computed tomography of the head without contrast. Radiation optimization: All CT scans at this facility use at least one of these dose optimization techniques: automated exposure control; mA and/or kV adjustment per patient size (includes targeted exams where dose is matched to clinical indication); or iterative reconstruction. COMPARISON: CT head wo con* [id number] 02/05/2022 6:35 PM RADIATION DOSE METRICS: Total DLP (mGy-cm): 1078.68 FINDINGS: Brain: Age appropriate atrophy and small vessel ischemic change. No evidence of intracranial hemorrhage, mass effect, midline shift or extra-axial fluid collections. Midline structures are normal. Beltran-white matter differentiation is normal. Cerebral ventricles: No ventriculomegaly. Paranasal sinuses: Mucosal thickening in the ethmoid and maxillary sinuses. Mastoid air cells: Visualized mastoid air cells are well aerated. Orbital cavities: The patient has had bilateral lens replacement surgery. Bones/joints: Unremarkable. No acute fracture. Soft tissues: Unremarkable. CT/CT head wo con* [id number] IMPRESSION: No acute intracranial injury.
[2022-02-07 04:02] LABS: Basophils % 0.4 %; Eosinophils % 0.2 %; Hematocrit 37.1 % (42.0-52.0); Hemoglobin 12.1 g/dL (11.7-16.6); Lymphocytes # 0.5 10^3/uL (0.8-4.8); Lymphocytes % 9.7 %; Mean Corpuscular HGB Conc 32.6 g/dL (30.0-36.0); Mean Corpuscular Hemoglobin 28.5 pg (28.0-34.0); Mean Corpuscular Volume 87.5 fl (80-94); Mean Platelet Volume 10.8 fL (7.4-10.4); Monocytes # 0.4 10^3/uL (0.2-0.9); Monocytes % 7.9 %; Neutrophils # 4.11 10^3/uL (1.8-7.7); Neutrophils % 81.6 %; Nucleated Red Blood Cells % 0 %; Platelet Count 105 10^3/cmm (130-400); Red Blood Count 4.24 10^6/uL (4.1-5.3); Red Cell Distribution Width 14.9 % (12.1-15.1)
[2022-02-07 04:17] LABS: INR 1.07 (0.8-1.2)
--- NOTE | 2022-02-07 04:18 | ECG_ITS ---
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 Measurements Intervals [place] Rate: 80 P: 32 TX: 231 QRS: -5 QRSD: 82 T: 56 QT: 366 QTc: 423 Interpretive Statements SINUS RHYTHM WITH FIRST DEGREE AV BLOCK Compared to ECG 02/05/2022 17:43:29 No significant changes Electronically Signed On 02-07-2022 19:08:00 SURVEY SUPERVISOR by Cathie Louis M.D. [id number]
[2022-02-07 04:28] LABS: Alanine Aminotransferase 14 U/L (0-41); Albumin Level 4.1 g/dL (3.5-5.2); Alkaline Phosphatase 90 U/L (40-130); Anion Gap 14.1 (5-19); Aspartate Amino Transferase 16 U/L (0-40); Blood Urea Nitrogen 22 mg/dL (8-23); Calcium 9.3 mg/dL (8.5-10.5); Carbon Dioxide 23 mmol/L (22-29); Chloride 101 mmol/L (98-107); Globulin 3.3 g/dL (1.3-4.6); Glucose 204 mg/dL (65-115); Magnesium 1.8 mg/dL (1.7-2.3); Osmolality Calculated 287 mOsm/kg (285-295); Potassium 4.1 mmol/L (3.5-5.1); Sodium 134 mmol/L (136-145); Total Bilirubin 2.2 mg/dL (0.15-1.2); Total Protein 7.4 g/dL (6.6-8.7)
[2022-02-07 04:31] LABS: Influenza A by IFA negative (Negative); Influenza B by IFA negative (Negative); SARS Covid-2 Antigen negative (Negative)
[2022-02-07] MEDS: sodium chloride 0.9% 1,000 ML 999 ML IV (04:32)
[2022-02-07 05:08] LABS: Add Urine Microscopic? NO; Charge for UA Resulting for Rev
[2022-02-07 05:12] LABS: Bilirubin Urine 1+ (Negative); Blood Urine Neg (Negative); Glucose Urine UA 1+ (Normal); Ketones Urine Negative (Negative); Leukocyte Esterase Urine Negative (Negative); Nitrate Urine Negative (Negative); Protein Urine Neg (Negative); Urine Appearance Clear (CLEAR); Urine Color Yellow (Yellow); Urobilinogen Urine Norm (Negative); pH Urine 5 (5-7)
--- NOTE | 2022-02-07 05:53 | CTR_ITS ---
PROCEDURE INFORMATION: Exam: CT Chest Without Contrast; Diagnostic Exam date and time: 02/07/2022 6:00 AM Age: 81 years old Clinical indication: Abdominal pain; Generalized; Other: N/a; Prior surgery; Surgery type: Coronary stent. Gb; Patient HX: Cough with fever. C/O diffuse abd pain. ; Additional info: Fever, cough, abdominal pain TECHNIQUE: Imaging protocol: Diagnostic computed tomography of the chest without contrast. Radiation optimization: All CT scans at this facility use at least one of these dose optimization techniques: automated exposure control; mA and/or kV adjustment per patient size (includes targeted exams where dose is matched to clinical indication); or iterative reconstruction. COMPARISON: CR (CHEST, ) 02/07/2022 3:42 AM RADIATION DOSE METRICS: Total DLP (mGy-cm): 1222.98 FINDINGS: Thyroid: The bilateral thyroid lobes are unremarkable. Lungs: Right upper lobe calcified pulmonary parenchymal granuloma. Right medial basilar infiltrate. Pleural spaces: No pneumothorax. No pleural effusion. Heart: No cardiomegaly. No pericardial effusion. Coronary arteries: Left main, LAD, LCx and RCA calcified coronary atherosclerosis. Lymph nodes: Right hilar and paratracheal granulomatous mari calcifications are present. Vasculature: Moderate aortic arch, branch, and descending thoracic aortic atherosclerotic calcification without ectasia. Bones/joints: Diffuse osteopenia. Thoracic spine vertebral body marginal osteophytes are noted at multiple levels. Lower thoracic spine bridging syndesmophytes suggesting chronic inflammatory spondylopathy. Soft tissues: Unremarkable. PROCEDURE INFORMATION: Exam: CT Abdomen And Pelvis Without Contrast Exam date and time: 02/07/2022 6:00 AM Age: 81 years old Clinical indication: Abdominal pain; Generalized; Other: N/a; Prior surgery; Surgery type: Coronary stent. Gb; Patient HX: Cough with fever. C/O diffuse abd pain. ; Additional info: Fever, cough, abdominal pain TECHNIQUE: Imaging protocol: Computed tomography of the abdomen and pelvis without contrast. Radiation optimization: All CT scans at this facility use at least one of these dose optimization techniques: automated exposure control; mA and/or kV adjustment per patient size (includes targeted exams where dose is matched to clinical indication); or iterative reconstruction. COMPARISON: CT abdomen pelvis wo con [id number] 08/02/2021 10:32 AM RADIATION DOSE METRICS: Total DLP (mGy-cm): 1222.98 FINDINGS: Liver: Normal. No mass. Gallbladder and bile ducts: The gallbladder is surgically absent, with metallic clips in the gallbladder fossa. No extrahepatic biliary ductal dilatation or calculus. Pancreas: Normal. No ductal dilation. Spleen: The spleen is enlarged measuring 16.7 cm longitudinally, previously 15.3 cm. Adrenal glands: Normal. No mass. Kidneys and ureters: Normal. No hydronephrosis. Stomach and bowel: Unremarkable. No obstruction. No mucosal thickening. Appendix: The vermiform appendix is normal. Intraperitoneal space: No free air. No significant fluid collection. Vasculature: Moderate aortic atherosclerotic calcification without aneurysm. The iliac arteries show moderate bilateral atherosclerotic calcifications without evidence of aneurysm. Lymph nodes: No enlarged lymph nodes. Urinary bladder: Unremarkable as visualized. Reproductive: Bilateral vas deferens calcification suggesting diabetes. Calcified phleboliths are present in the lower pelvis bilaterally. Bones/joints: Diffuse osteopenia. Lumbar spine vertebral body marginal osteophytes are noted at multiple levels. Stable sclerotic likely benign right anterior acetabular cancellous bone lesion. Anterior bridging right sacroiliac joint marginal osteophytes. Soft tissues: Unremarkable. CT/[place] [id number] IMPRESSION: 1. Chronic inflammatory spondylopathy. 2. Right medial basilar infiltrate. Pneumonitis is difficult to exclude. Clinical correlation is recommended. 3. Coronary atherosclerosis. 4. Please see the abdomen/pelvis CT report of the same date for additional findings. IMPRESSION: 1. Mild splenomegaly, mildly increased. 2. Prior cholecystectomy. 3. Please see the CT chest report of the same date for additional findings.
--- NOTE | 2022-02-07 05:55 | PM.HP ---
Providers/Chief Complaint Primary Care Provider: Kam Regan MD Chief Complaint: fever, tremors History of Present Illness Ky Najera is a 81 year old male with a past medical history of CAD status post stenting in 2013 to LAD, paroxysmal atrial fibrillation not on anticoagulation, hypertension, hyperlipidemia, obstructive sleep apnea who presents to [facility] due to fevers, fatigue, malaise, chills, tremors. Patient's tells me that roughly a month ago, he has been having episodes in which he has some tremors of his upper extremities, he was seen by Dr. Cuello and there was concerns for possible syncope, he denies any chest pain, no palpitations. However the episodes stopped, but on 1227, he had episodes of shaking of both arms,, was sleepy, was concerns for seizure-like activity, he was given Ativan by EMS crew. He was seen here at [facility] work-up was relatively unremarkable and he was sent home. He has not had any more those episodes, but now he is having high fevers, malaise,, cough. No headache, no blurry vision, no neck pain, neck stiffness. His tells me that she gets worried about these episodes that he has been having for the last 48 hours, its difficult to describe, in which he becomes less responsive, his eyes rolled back, he has shaking and tremors of his upper extremities, no urine incontinence, no bowel incontinence, no slurring of his words, no facial droop Review of Systems Const: Reports: fever(s), chills, body aches, fatigue and malaise Eyes: Denies: change in vision Card: Denies: chest pain Resp: Reports: dyspnea and non-productive cough GI: Denies: abdominal pain : Denies: flank pain, difficulty urinating, dysuria or urinary frequency Musc: Denies: neck pain or back pain Skin/Breast: Denies: rash Neuro: Denies: headache(s) Medications/Allergies Home Medications Medication Instructions Recorded Confirmed Last Taken Type aspirin 81 mg tablet,delayed 81 mg PO DAILY 05/26/19 01/06/22 08/01/21 History release (Adult Low Dose Aspirin) atorvastatin 20 mg tablet 20 mg PO DAILY 05/26/19 01/06/22 08/02/21 History cetirizine 10 mg tablet (Zyrtec) 5 mg PO DAILY PRN allergies 05/26/19 01/06/22 Unknown History clopidogrel 75 mg tablet (Plavix) 75 mg PO DAILY 05/26/19 01/06/22 08/02/21 History isosorbide mononitrate 30 mg 30 mg PO BID 05/26/19 01/06/22 08/02/21 History tablet,extended release 24 hr magnesium oxide 400 mg PO BID 05/26/19 01/06/22 08/02/21 History nitroglycerin 0.4 mg sublingual 0.4 mg sublingual Q5M PRN Chest 05/26/19 01/06/22 Unknown History tablet (Nitrostat) Pain tamsulosin 0.4 mg capsule 0.4 mg PO DAILY 05/26/19 01/06/22 08/02/21 History amlodipine 5 mg tablet 5 mg PO DAILY 09/05/20 01/06/22 08/01/21 History montelukast 10 mg tablet 10 mg PO DAILY #90 tabs 10/22/21 01/06/22 Unknown Rx pantoprazole 20 mg tablet,delayed 20 mg PO BID #180 tabs 10/22/21 01/06/22 Unknown Rx release (Protonix) sotalol 120 mg tablet 120 mg PO BID #180 tabs 10/22/21 01/06/22 Unknown Rx Allergies Allergy/AdvReac Type Severity Reaction Status Date / Time amoxicillin [From Augmentin] Allergy Mild ADR-Diarrhe Verified 09/25/21 08:15 a clavulanic acid Allergy Mild ADR-Diarrhe Verified 09/25/21 08:15 [From Augmentin] a PFSH Acute PFSH: Medical History Arteriosclerotic coronary artery disease Atrial fibrillation Coronary artery disease HTN (hypertension) Hyperlipidemia PATTI (obstructive sleep apnea) Salmonella enteritis Surgical History S/P cholecystectomy S/P PTCA (percutaneous transluminal coronary angioplasty) Family History Other Cancer Social History Smoking and tobacco status: never smoked Alcohol intake: never Lives independently: Yes Household members: spouse and children Marital status: Vitals/I&O/Wt Last Vital Signs Temp 98.7 F 02/07/22 04:36 Pulse 72 02/07/22 05:30 Resp 23 H 02/07/22 05:30 BP 114/49 02/07/22 05:30 Pulse Ox 92 02/07/22 05:30 O2 Del Method 02/07/22 05:30 02/06/22 02/06/22 02/07/22 14:59 22:59 06:59 Intake Total 1000 / 1000 Balance 1000 / 1000 Weight last 48 hrs Weight 88.451 kg Physical Exam Const: COMMON NORMALS: no acute distress and patient oriented x3 HENMT: COMMON NORMALS: normocephalic HEAD & SCALP: normocephalic Eye: COMMON NORMALS: Equal, round and reactive pupils present and EOMs intact bilaterally Neck/C-Spine: COMMON NORMALS: no meningeal signs and no JVD Resp: COMMON NORMALS: normal respiratory effort, No retractions and No use of accessory muscles AUSCULTATION: wheezes Cardio: COMMON NORMALS: no JVD, regular rate, regular rhythm, S1 normal heart sound present and S2 normal heart sound present RATE: regular rate RHYTHM: regular rhythm HEART SOUNDS: S1 normal heart sound present and S2 normal heart sound present GI: COMMON NORMALS: Normal to inspection, nondistended, normoactive bowel sounds present, Soft to palpation, no masses and no bruits AUSCULTATION: Yes normoactive bowel sounds PALPATION: Yes Soft to palpation, Yes Tenderness to palpation present (GI) (Diffuse), No Guarding due to palpation present (GI) and No Rigid due to palpation Extremity: COMMON NORMALS: capillary refill normal, no clubbing, cyanosis or edema, no calf tenderness and no pedal edema Neuro: COMMON NORMALS: patient oriented x3 and moves all extremities Psych: COMMON NORMALS: mental status grossly normal Data 02/07/22 03:46 02/07/22 03:46 Micro: Microbiology 02/07/22 04:13 Blood Culture - Preliminary Blood SPECIMEN COLLECTED 02/07/22 03:46 Blood Culture - Preliminary Blood SPECIMEN COLLECTED A&P Assessment and plan (1) Fever: Plan Fevers -Etiology unclear -Chest x-ray no focal pneumonia, but does have wheezing on exam, COVID-negative, flu negative -No UTI, no dysuria, no hematuria -Given his history, of near syncopal episodes, now with tremors, and these possible seizure-like episodes, with high fever could possibly point to meningitis Plan -We will moved to general medical floors -Given his wheezing, will do respiratory viral panel, CT of the chest, Pro-Guido, CRP, ESR -We will start him on Rocephin and azithromycin -Given there is concerns for possible meningitis, I will start him on vancomycin, he is going to be getting Rocephin -We can consider him lumbar puncture based upon what the CT findings show, however he did take Plavix yesterday, his stent was placed in 2013, I will hold Plavix for now, will discuss with radiology low approximately performing a lumbar puncture today based on results as above -Monitor mentation -Neurochecks -Aspiration precautions -Continue blood pressure medications -Hold Lovenox as there is possible plans on LP -SCDs for DVT prophylaxis -Full code Attestations Medical Necessity Statement*: Patient requires hospitalization, outpatient observation, for fevers Coding Level of Care Code Acute Feed Manager for Trent Lanza Diagnoses Fever R50.9
[2022-02-07 06:37] LABS: Erythrocyte Sedimentation Rate 16 mm/hr (0-10)
[2022-02-07] MEDS: pantoprazole 40 mg SDV IVP (06:37)
[2022-02-07] MEDS: sodium chloride 0.9% 1,000 ML 75 ML IV ×2 (06:37→19:35)
[2022-02-07] MEDS: cefTRIAXone 1,000 MG in sodium chloride 0.9% (plus) 50 ML 100 MG IV (06:37)
[2022-02-07 06:42] LABS: C Reactive Protein 11.3 mg/L (0.0-4.9); Lipase 56 U/L (13-60)
[2022-02-07 06:50] LABS: Procalcitonin 0.14 ng/mL (0-0.5)
[2022-02-07 07:41] LABS: Thyroid Stimulating Hormone 1.03 uIU/mL (0.27-4.20)
[2022-02-07 07:45] LABS: Hepatitis A Antibody IgM Non-Reactive (Nonreactive); Hepatitis B Core IgM Non-Reactive (Nonreactive); Hepatitis B Surface Antigen Non-Reactive (Nonreactive); Hepatitis C Virus Antibody Non-Reactive (Nonreactive)
[2022-02-07 08:54] LABS: Adenovirus Not Detected (NOT DETECT); Chlamydia Pneumoniae Not Detected (NOT DETECT); Coronavirus 229E,HKU1,NL63,OC4 Not Detected (NOT DETECT); Human Metapneumovirus Not Detected (NOT DETECT); Human Rhinovirus/Enterovirus Not Detected (NOT DETECT); Influenza A Not Detected (NOT DETECT); Influenza A H1 Not Detected (NOT DETECT); Influenza A H1-2009 Not Detected (NOT DETECT); Influenza A H3 Not Detected (NOT DETECT); Influenza B Not Detected (NOT DETECT); Mycoplasma Pneumoniae Not Detected (NOT DETECT); Parainfluenza Virus Type 1 Not Detected (NOT DETECT); Parainfluenza Virus Type 2 Not Detected (NOT DETECT); Parainfluenza Virus Type 3 Not Detected (NOT DETECT); Parainfluenza Virus Type 4 Not Detected (NOT DETECT); Respiratory Syncytial Virus A Not Detected (NOT DETECT); Respiratory Syncytial Virus B Not Detected (NOT DETECT); SARS-COV-2 Not Detected (NOT DETECT)
[2022-02-07] MEDS: vancomycin 1,250 MG/250 ML PIGGYBACK 250 MG IV (09:30)
[2022-02-07] MEDS: magnesium oxide 400 mg tablet PO ×2 (09:32→17:00)
[2022-02-07] MEDS: pantoprazole DR 40 mg Tablet PO ×2 (09:32→17:01)
[2022-02-07] MEDS: aspirin 81 mg EC Tablet PO (09:32)
[2022-02-07] MEDS: isosorbide mononitrate ER 30 mg Tablet PO ×2 (09:33→17:00)
[2022-02-07] MEDS: atorvastatin 40 mg Tablet 20 MG PO (09:33)
[2022-02-07] MEDS: tamsulosin 0.4 mg Capsule PO (09:33)
[2022-02-07] MEDS: sotalol 80 mg Tablet 120 MG PO ×2 (09:36→17:00)
[2022-02-07] MEDS: montelukast sodium 10 mg Tablet PO (09:37)
--- NOTE | 2022-02-07 09:49 | PC.CHAP ---
Pastoral Care Encounter/Spiritual Assessment Type of Contact [] Declined assorter laundry visit [] Patient/Family/Request visit [] Outpatient visit [] Follow-up visit [] Physician referral [] Code/Alert [x] Routine visit [] Staff referral [] Actively dying [x] Patient sleeping [] Family support [] [] Out of room [] Palliative care [] [] Receiving care in room [] Pre-surgical visit [] Trauma [] Long length of stay [] ICU visit [] Other: Relational/Emotional Strength [] Patient feels connected with others/family/visitors/staff [] Distress [] Loneliness/isolation [] Abandonment Spirituality of Patient [] Person of Silvia [] Attends Muslim of their Silvia [] Believes in Prayer [] Reads Bible or Yazidism materials [] There are Spiritual issues to be addressed Remote Sensing Surveyor Interventions [x] Prayer [] Active listening [] Non-anxious presence [] Spiritual/emotional support [] Crisis/trauma care [] Spiritual counseling [] Bereavement support [] Provided bereavement packet [] Provided Bible/devotional materials [] Provided toy/stuffed animal, coloring book to patient or family member [] Provided Communion [] Anointing/Holliday [] Salvation [] Completed spiritual assessment [] Other: Impact on Illness or Injury [] Angry [] Fearful [] Anxious [] Often cries [] Exhaustion [] Unable to work [] Unable to attend baptist [] Unable to walk/stand [] Unable to read [] Unable to drive [] Unable to eat/drink [] Unable to sleep [] Unable to be with family [] Patient intubated [] Other: Summary Time spent with patient
[2022-02-07] MEDS: azithromycin 500 MG in sodium chloride 0.9% 250 ML 250 MG IV (10:43)
--- NOTE | 2022-02-07 13:38 | PM.MISC ---
Miscellaneous Note Purpose of Documentation: Overnight labs and H&P reviewed. Had a fever of 102 Fahrenheit overnight. Change to inpatient admission as will need further evaluation. Discussed with radiology that they are unable to perform a lumbar puncture for the next 5 days as patient has been on Plavix. Currently critical care or neurology services are not available in house to perform LP as they are off call. Review of past notes show that patient has a history of Salmonella enteritis in July 2021. No evidence of mycotic aneurysms on CT of the chest abdomen or pelvis. Blood cultures currently remain pending. He also has a history of C. difficile colitis, will check enteric bacterial panel and C. difficile currently. Further orders based on results of investigations and clinical course check serum cryptococcal antigen
[2022-02-07] MEDS: cefTRIAXone 2,000 MG in sodium chloride 0.9% (plus) 50 ML 100 MG IV (14:25)
[2022-02-08] VITALS (11 sets, daily range): BP systolic 117–135; BP diastolic 53–66; PULSE 56–72; RESP 16–18; TEMP 36.6–37.1; O2SAT 92–95
[2022-02-08] MEDS: cefTRIAXone 2,000 MG in sodium chloride 0.9% (plus) 50 ML 100 MG IV ×2 (03:16→13:34)
[2022-02-08] MEDS: vancomycin 1,250 MG/250 ML PIGGYBACK 250 MG IV (04:03)
[2022-02-08] MEDS: pantoprazole 40 mg SDV IVP (05:40)
[2022-02-08] MEDS: pantoprazole DR 40 mg Tablet PO ×2 (08:37→17:18)
[2022-02-08] MEDS: magnesium oxide 400 mg tablet PO ×2 (08:38→17:18)
[2022-02-08] MEDS: tamsulosin 0.4 mg Capsule PO (08:38)
[2022-02-08] MEDS: montelukast sodium 10 mg Tablet PO (08:38)
[2022-02-08] MEDS: isosorbide mononitrate ER 30 mg Tablet PO ×2 (08:38→17:18)
[2022-02-08] MEDS: sotalol 80 mg Tablet 120 MG PO ×2 (08:38→17:17)
[2022-02-08] MEDS: amlodipine 5 mg Tablet PO (08:38)
[2022-02-08] MEDS: aspirin 81 mg EC Tablet PO (08:38)
[2022-02-08] MEDS: atorvastatin 40 mg Tablet 20 MG PO (08:39)
[2022-02-08] MEDS: sodium chloride 0.9% 1,000 ML 75 ML IV (09:33)
[2022-02-08 10:30] LABS: Basophils % 0.5 %; Eosinophils # 0.1 10^3/uL (0.0-0.8); Eosinophils % 1.3 %; Hematocrit 32.1 % (42.0-52.0); Hemoglobin 10.1 g/dL (11.7-16.6); Lymphocytes # 0.5 10^3/uL (0.8-4.8); Lymphocytes % 13.8 %; Mean Corpuscular HGB Conc 31.5 g/dL (30.0-36.0); Mean Corpuscular Hemoglobin 28.5 pg (28.0-34.0); Mean Corpuscular Volume 90.4 fl (80-94); Mean Platelet Volume 11.1 fL (7.4-10.4); Monocytes # 0.3 10^3/uL (0.2-0.9); Monocytes % 8.2 %; Neutrophils # 2.96 10^3/uL (1.8-7.7); Neutrophils % 75.7 %; Nucleated Red Blood Cells % 0 %; Platelet Count 89 10^3/cmm (130-400); Red Blood Count 3.55 10^6/uL (4.1-5.3); White Blood Count 3.9 10^3/uL (4.0-10.0)
[2022-02-08 10:52] LABS: Alanine Aminotransferase 9 U/L (0-41); Albumin Level 3.5 g/dL (3.5-5.2); Alkaline Phosphatase 74 U/L (40-130); Anion Gap 12.8 (5-19); Aspartate Amino Transferase 11 U/L (0-40); Blood Urea Nitrogen 14 mg/dL (8-23); Calcium 8.2 mg/dL (8.5-10.5); Carbon Dioxide 22 mmol/L (22-29); Chloride 109 mmol/L (98-107); Glucose 142 mg/dL (65-115); Osmolality Calculated 293 mOsm/kg (285-295); Potassium 3.8 mmol/L (3.5-5.1); Sodium 140 mmol/L (136-145); Total Bilirubin 1.4 mg/dL (0.15-1.2); Total Protein 6.5 g/dL (6.6-8.7)
--- NOTE | 2022-02-08 16:57 | PM.PN ---
Subjective Subjective: No further shaking episodes. Patient's T-max is 99.8 Fahrenheit over last 24 hours. States that he feels better today. He is noted to be audibly wheezing. Medications: Reviewed: Yes Vitals/I&O/Wt Last Vital Signs Temp 98.8 F 02/08/22 12:00 Pulse 64 02/08/22 14:00 Resp 16 02/08/22 12:00 BP 125/58 02/08/22 12:00 Pulse Ox 94 02/08/22 12:00 O2 Del Method 02/08/22 12:00 02/08/22 02/08/22 02/08/22 06:59 14:59 22:59 Intake Total 300 / 2472.5 1770 / 1770 Output Total 250 / 450 Balance 50 / 2021.5 177 / 1769 Weight last 48 hrs Weight 91.762 kg Weight 88.451 kg Physical Exam Narrative: General: No acute distress, AO x3 HEENT: PERRLA, pupils bilaterally equal and reactive, pallors not present Chest: Normal vesicular breath sounds, no added sounds, equal good air entry bilaterally CVS: S1-S2 regular, no murmurs, no tachycardia, no gallops, no rubs Abdomen: Soft, nontender, no organomegaly, bowel sounds present Neuro: No focal deficits, no facial deformity, AO x3, power 5/5 in all limbs Data 02/08/22 09:47 02/08/22 09:47 Micro: Microbiology 02/07/22 04:52 Urine Culture - Preliminary Urine,Clean Catch 02/08/22 09:47 Blood Culture - Preliminary Blood SPECIMEN COLLECTED 02/08/22 09:54 Blood Culture - Preliminary Blood SPECIMEN COLLECTED 02/07/22 04:13 Blood Culture - Preliminary Blood NEGATIVE TO DATE 02/07/22 03:46 Blood Culture - Preliminary Blood NEGATIVE TO DATE 02/07/22 03:46 MRSA Culture - Final Nose A&P Assessment and plan (1) Fever: Plan Fevers -Etiology unclear at this time -Chest x-ray no focal pneumonia, but does have wheezing on exam, COVID-negative, flu negative. Likely acute bronchitis. Reports sputum production over last week. -No UTI, no dysuria, no hematuria -Given his history, of near syncopal episodes, now with tremors, and these possible seizure-like episodes, initial suspicion for meningitis, however symptoms have not recurred. Less likely meningitis based on these findings. May be possible he had shaking chills with high grade temperature. -Continue Rocephin and azithromycin - d/c vancomycin as MRSA screen negative -Add schduled nebulization - developing leukopenia and thrombocytopenia, suspect viral etiology, will monitor closely. -Continue blood pressure medications - Plavix has been on hold for possible LP -SCDs for DVT prophylaxis -Full code Attestations Medical Necessity Statement*: persisting fever, source under evaluation Coding Level of Care Code Acute Pulmonary Specialist for [facility] Diagnoses Fever R50.9
[2022-02-08] MEDS: budesonide 0.5 mg/2 mL Neb INHALATION (20:11)
[2022-02-08] MEDS: ipratropium-albuterol 3 mL Neb INHALATION (20:12)
[2022-02-09] VITALS (11 sets, daily range): BP systolic 112–121; BP diastolic 64–68; PULSE 58–73; RESP 16–18; TEMP 36.6–36.8; O2SAT 93–99
[2022-02-09] MEDS: ipratropium-albuterol 3 mL Neb INHALATION (02:19)
[2022-02-09] MEDS: pantoprazole 40 mg SDV IVP (05:42)
[2022-02-09] MEDS: budesonide 0.5 mg/2 mL Neb INHALATION (08:06)
[2022-02-09] MEDS: ipratropium 0.5 mg/2.5 mL Neb INHALATION ×2 (08:06→13:45)
[2022-02-09] MEDS: albuterol 2.5 mg/3 mL Neb INHALATION ×2 (08:06→13:45)
[2022-02-09] MEDS: montelukast sodium 10 mg Tablet PO (09:14)
[2022-02-09] MEDS: sotalol 80 mg Tablet 120 MG PO (09:14)
[2022-02-09] MEDS: pantoprazole DR 40 mg Tablet PO (09:15)
[2022-02-09] MEDS: atorvastatin 40 mg Tablet 20 MG PO (09:15)
[2022-02-09] MEDS: aspirin 81 mg EC Tablet PO (09:15)
[2022-02-09] MEDS: magnesium oxide 400 mg tablet PO (09:15)
[2022-02-09] MEDS: isosorbide mononitrate ER 30 mg Tablet PO (09:15)
[2022-02-09] MEDS: tamsulosin 0.4 mg Capsule PO (09:15)
[2022-02-09] MEDS: azithromycin 250 mg Tablet 500 MG PO (09:15)
[2022-02-09] MEDS: cefTRIAXone 2,000 MG in sodium chloride 0.9% (plus) 50 ML 100 MG IV (13:29)
--- NOTE | 2022-02-09 13:43 | P.DS_ITS ---
Discharge Providers Date of Admission: 02/07/22 05:58 Date of Discharge: February 09, 2022 Attending Provider at Admission: Austin James MD Attending Provider at Discharge: Tiny Escobar MD Primary Care Provider: Kam Regan MD Diagnoses at Discharge Discharge Diagnosis (1) Fever: Status: Acute (2) Acute bronchitis: Status: Acute (3) Pneumonitis: Status: Acute Reason for Visit Reason for Visit: fever, tremors Brief History: Taken from [facility] : Ky Najera is a 81 year old male with a past medical history of CAD status post stenting in 2013 to LAD, paroxysmal atrial fibrillation not on ant icoagulation, hypertension, hyperlipidemia, obstructive sleep apnea who presents to [facility] due to fevers, fatigue, malaise, chills, tremors.? Patient's tells me that roughly a month ago, he has been having episodes in which he has some tremors of his upper extremities, he was seen by Dr. Cuello and there was concerns for possible syncope, he was taken off lisinopril. On 1227, he had episodes of shaking of both arms,, was sleepy, was concerns for seizure-like activity, he was given Ativan by EMS crew.? He was seen here at [facility] work-up was relatively unremarkable and he was sent home.? He has not had any more those episodes, but now he is having high fevers, malaise,, cough.? No headache, no blurry vision, no neck pain, neck stiffness.? His tells me that she gets worried about these episodes that he has been having for the last 48 hours, its difficult to describe, in which he becomes less responsive, his eyes rolled back, he has shaking and tremors of his upper extremities, no urine incontinence, no bowel incontinence, no slurring of his words, no facial droop Hospital Course Hospital Course Patient was admitted for the evaluation of fever and these shaking episodes. It appears that he may have been fever with shaking chills. Patient had a fever of 102 Fahrenheit on day of admission. Since then his T-max has been 99.8 and he has been afebrile for the last 24 hours. Etiology of his fever overall remains unclear. Chest x-ray did not show any focal pneumonia but patient did have wheezing on exam therefore acute bronchitis appears to be a possibility. His COVID and flu testing was negative. CT of his chest was performed which raise suspicion for focal pneumonitis per radiology read. There were no urinary symptoms no dysuria. UA was clean. Urine and blood cultures remain negative. He had no further seizure-like episodes in the hospital. Initially there was concern for possible meningitis, however patient has been alert awake and oriented throughout his admission course. He denies any headache neck pain stiffness or photophobia. Initially it was thought he may need an LP therefore Plavix was placed on hold, however possibility of meningitis is considered unlikely at this point. His fevers have resolved. He received treatment with ceftriaxone and azithromycin during course of his admission here. He is being discharged on Augmentin for the acute bronchitis. Also added an albuterol inhaler as needed for any episodes of wheezing. Patient is feeling well, trending close back to his baseline. Sputum culture remains pending at the time of discharge, advised to follow-up with primary care provider within 4 to 5 days of discharge to follow-up on final cultures. He has remained on room air during his admission course. Physical Exam Narrative: General: No acute distress, AO x3 HEENT: PERRLA, pupils bilaterally equal and reactive, pallors not present Chest: Normal vesicular breath sounds, no added sounds, equal good air entry petros aterally CVS: S1-S2 regular, no murmurs, no tachycardia, no gallops, no rubs Abdomen: Soft, nontender, no organomegaly, bowel sounds present Neuro: No focal deficits, no facial deformity, AO x3, power 5/5 in all limbs Extremities: no edema, clubbing or cyanosis Discharge Data Studies Completed and Pending Completed Studies During Hospitalization Category Date Time Status CT cervical spin wo con* [id number] Stat Cat Scan 02/07/22 03:[address] chest abdomen pelvis [[place] [id number] Cat Scan 02/07/22 05:53 Completed ] Stat CT head wo con* [id number] Stat Cat Scan 02/07/22 03:43 Completed XR chest 1V portable [id number] Stat Exams 02/07/22 03:33 Completed Pending at discharge Category Date Time Status Blood Culture AM LABS Lab 02/08/22 09:47 Results Blood Culture Stat Lab 02/07/22 04:13 Results Clostridioides Difficile PCR Routine Lab 02/07/22 06:27 Ordered Cryptococcal Antigen w/ Reflex Stat Lab 02/07/22 14:18 Received Enteric Bacterial Panel by PCR Routine Lab 02/07/22 06:27 Ordered Enteric Parasite Panel by PCR Routine Lab 02/07/22 06:27 Ordered Immunochemical Fecal OCB Routine Lab 02/07/22 06:27 Ordered Lactoferrin Routine Lab 02/07/22 06:27 Ordered Sputum Culture and Gram Stain Stat Lab 02/07/22 05:53 Ordered Radiology Impressions Chest X-Ray 02/07/22 03:33 IMPRESSION: No acute findings. Cervical Spine CT 02/07/22 03:43 IMPRESSION: No acute injury. Head CT 02/07/22 03:43 IMPRESSION: No acute intracranial injury. Chest/Abdomen/Pelvis CT 02/07/22 05:53 IMPRESSION: 1. Chronic inflammatory spondylopathy. 2. Right medial basilar infiltrate. Pneumonitis is difficult to exclude. Clinical correlation is recommended. 3. Coronary atherosclerosis. 4. Please see the abdomen/pelvis CT report of the same date for additional findings. IMPRESSION: 1. Mild splenomegaly, mildly increased. 2. Prior cholecystectomy. 3. Please see the CT chest report of the same date for additional findings. Laboratory Results WBC 3.9 10^3/uL (4.0-10.0) L 02/08/22 09:47 RBC 3.55 10^6/uL (4.1-5.3) L 02/08/22 09:47 Hgb 10.1 g/dL (11.7-16.6) L 02/08/22 09:47 Hct 32.1 % (42.0-52.0) L 02/08/22 09:47 MCV 90.4 fl (80-94) 02/08/22 09:47 MCH 28.5 pg (28.0-34.0) 02/08/22 09:47 MCHC 31.5 g/dL (30.0-36.0) 02/08/22 09:47 RDW 15.0 % (12.1-15.1) 02/08/22 09:47 Plt Count 89 10^3/cmm (130-400) L 02/08/22 09:47 MPV 11.1 fL (7.4-10.4) H 12/31/22 09:47 Neut % (Auto) 75.7 % 02/08/22 09:47 Lymph % (Auto) 13.8 % 02/08/22 09:47 [place] % (Auto) 8.2 % 02/08/22 09:47 Eos % (Auto) 1.3 % 02/08/22 09:47 Baso % (Auto) 0.5 % 02/08/22 09:47 Neut # (Auto) 2.96 10^3/uL (1.8-7.7) 02/08/22 09:47 Lymph # (Auto) 0.5 10^3/uL (0.8-4.8) L 02/08/22 09:47 [place] # (Auto) 0.3 10^3/uL (0.2-0.9) 02/08/22 09:47 Eos # (Auto) 0.1 10^3/uL (0.0-0.8) 02/08/22 09:47 Baso # (Auto) 0.0 10^3/uL (0.0-0.1) 02/08/22 09:47 Nucleated RBC % (auto) 0 % 02/08/22 09:47 Nucleated RBCs # 0.0 /100WBC 02/08/22 09:47 ESR 16 mm/hr (0-10) H 02/07/22 03:46 PT 14.20 SECONDS (12.1-14.9) 02/07/22 03:46 INR 1.07 (0.8-1.2) 02/07/22 03:46 Sodium 140 mmol/L (136-145) 02/08/22 09:47 Potassium 3.8 mmol/L (3.5-5.1) 02/08/22 09:47 Chloride 109 mmol/L (98-107) H 02/08/22 09:47 Carbon Dioxide 22 mmol/L (22-29) 02/08/22 09:47 Anion Gap 12.8 (5-19) 02/08/22 09:47 BUN 14 mg/dL (8-23) 02/08/22 09:47 Creatinine 1.0 mg/dL (0.7-1.2) 02/08/22 09:47 GFR Calculation Not Reportable 02/08/22 09:47 Glucose 142 mg/dL (65-115) H 02/08/22 09:47 Calculated Osmolality 293 mOsm/kg (285-295) 02/08/22 09:47 Lactate 2.0 mmol/L (0.5-2.2) 02/07/22 03:46 Calcium 8.2 mg/dL (8.5-10.5) L 02/08/22 09:47 Magnesium 1.8 mg/dL (1.7-2.3) 02/07/22 03:46 Total Bilirubin 1.4 mg/dL (0.15-1.2) H 02/08/22 09:47 AST 11 U/L (0-40) 02/08/22 09:47 ALT 9 U/L (0-41) 02/08/22 09:47 Alkaline Phosphatase 74 U/L (40-130) 02/08/22 09:47 C-Reactive Protein 11.3 mg/L (0.0-4.9) H 02/07/22 03:46 Total Protein 6.5 g/dL (6.6-8.7) L 02/08/22 09:47 Albumin 3.5 g/dL (3.5-5.2) 02/08/22 09:47 Globulin 3.0 g/dL (1.3-4.6) 02/08/22 09:47 Lipase 56 U/L (13-60) 02/07/22 03:46 Procalcitonin 0.14 ng/mL (0-0.5) 02/07/22 03:46 TSH 1.03 uIU/mL (0.27-4.20) 02/07/22 06:53 Urine Color Yellow (Yellow) 02/07/22 04:52 Urine Appearance Clear (CLEAR) 02/07/22 04:52 Urine pH 5 (5-7) 02/07/22 04:52 Ur Specific [place] 1.020 (1.005-1.030) 02/07/22 04:52 Urine Protein Neg (Negative) 02/07/22 04:52 Urine Glucose (UA) 1+ (Normal) H 02/07/22 04:52 Urine Ketones Negative (Negative) 02/07/22 04:52 Urine Blood Neg (Negative) 02/07/22 04:52 Urine Nitrate Negative (Negative) 02/07/22 04:52 Urine Bilirubin 1+ (Negative) H 02/07/22 04:52 Urine Urobilinogen Norm mg/dL (Negative) 02/07/22 04:52 Ur Leukocyte Esterase Negative (Negative) 02/07/22 04:52 Nasal Influ A H1 2009 PCR Not detected (NOT DETECT) 02/07/22 06:14 Adenovirus (PCR) Not detected (NOT DETECT) 02/07/22 06:14 C. pneumoniae DNA (PCR) Not detected (NOT DETECT) 02/07/22 06:14 Coronavirus 229E (PCR) Not detected (NOT DETECT) 02/07/22 06:14 Hepatitis A IgM Ab Non-reactive (Nonreactive) 02/07/22 06:53 Hep Bs Antigen Non-reactive (Nonreactive) 02/07/22 06:53 Hep B Core IgM Ab Non-reactive (Nonreactive) 02/07/22 06:53 Hepatitis C Antibody Non-reactive (Nonreactive) 02/07/22 06:53 Human Metapneumovir PCR Not detected (NOT DETECT) 02/07/22 06:14 Influenza A (H1) PCR Not detected (NOT DETECT) 02/07/22 06:14 Influenza A (H3) PCR Not detected (NOT DETECT) 02/07/22 06:14 Influenza Type A Ag negative (Negative) 02/07/22 03:50 Influenza Type A (PCR) Not detected (NOT DETECT) 02/07/22 06:14 Influenza Type B Ag negative (Negative) 02/07/22 03:50 Influenza Type B (PCR) Not detected (NOT DETECT) 02/07/22 06:14 M. pneumoniae (PCR) Not detected (NOT DETECT) 02/07/22 06:14 Parainfluenza 1 (PCR) Not detected (NOT DETECT) 02/07/22 06:14 Parainfluenza 2 (PCR) Not detected (NOT DETECT) 02/07/22 06:14 Parainfluenza 3 (PCR) Not detected (NOT DETECT) 02/07/22 06:14 Parainfluenza 4 (PCR) Not detected (NOT DETECT) 02/07/22 06:14 RSV Type A (PCR) Not detected (NOT DETECT) 02/07/22 06:14 RSV Type B (PCR) Not detected (NOT DETECT) 02/07/22 06:14 Entero/Rhino (PCR) Not detected (NOT DETECT) 02/07/22 06:14 SARS-CoV-2 (PCR) Not detected (NOT DETECT) 02/07/22 06:14 SARS-CoV-2 Ag (Rapid) negative (Negative) 02/07/22 03:50 Vitals Last Vital Signs Temp 98.2 F 02/09/22 11:56 Pulse 69 02/09/22 11:56 Resp 18 02/09/22 11:56 BP 112/64 02/09/22 11:56 Pulse Ox 98 02/09/22 11:56 O2 Del Method 02/09/22 11:56 Discharge Plan Discharge Patient Disposition: Home Condition: Stable Prescriptions: New albuterol sulfate 90 mcg/actuation HFA aerosol inhaler 1 inh inhalation Q6H PRN (Reason: shortness of breath or wheezing) Qty: 6.7 1RF amoxicillin-pot clavulanate 875-125 mg tablet 1 tab PO BID 5 Days Qty: 10 0RF Continued magnesium oxide 400 mg magnesium capsule 400 mg PO BID atorvastatin 20 mg tablet 20 mg PO DAILY clopidogrel [Plavix] 75 mg tablet 75 mg PO DAILY isosorbide mononitrate 30 mg tablet extended release 24 hr 60 mg PO DAILY tamsulosin 0.4 mg capsule 0.4 mg PO DAILY aspirin [Adult Low Dose Aspirin] 81 mg tablet,delayed release (DR/EC) 81 mg PO DAILY nitroglycerin [Nitrostat] 0.4 mg tablet, sublingual 0.4 mg SUBLINGUAL Q5M PRN (Reason: Chest Pain) cetirizine [Zyrtec] 10 mg tablet 5 mg PO DAILY amlodipine 5 mg tablet 5 mg PO DAILY sotalol 120 mg tablet 120 mg PO BID Qty: 180 3RF montelukast 10 mg tablet 10 mg PO DAILY Qty: 90 3RF pantoprazole [Protonix] 20 mg tablet,delayed release (DR/EC) 20 mg PO BID Qty: 180 3RF Discharge Orders: Discharge Order (Routine); Ordered 02/09/22 Ordered By: Tiny Escobar Referrals: Kam Regan MD [Primary Care Provider] - 4-7 days Discharge Diet: Usual diet Discharge Activity: Resume usual activity Patient Instructions: Opioid Safety Discharge Attestations Time Spent in Discharge Care*: greater than 30 min Quality Metrics Clinical Quality Measures [ No reported AMI, CVA or VTE this stay] Coding Level of Care Code Acute Chg FW DC note Diagnoses Fever R50.9 Acute bronchitis J20.9 Pneumonitis J18.9
[2022-02-11 18:24] LABS: Cryptococcal Source SERUM
== END 2022-02-09 14:30 | disposition home or self-care (01) | DRG 202 ==
LOC: ER 05:35 → MEDSURG 08:26
PROVIDERS: Admitting Provider Family Medicine; Emergency Provider Emergency Medicine; PCP Family Medicine; Visit Provider Student in an Organized Health Care Education/Training Program
DX: J20.9 Acute bronchitis, unspecified (principal); J18.9 Pneumonia, unspecified organism; R25.1 Tremor, unspecified; R55 Syncope and collapse; I25.10 Atherosclerotic heart disease of native coronary artery without angina pectoris; I48.0 Paroxysmal atrial fibrillation; I10 Essential (primary) hypertension; E78.5 Hyperlipidemia, unspecified; G47.33 Obstructive sleep apnea (adult) (pediatric); Z95.5 Presence of coronary angioplasty implant and graft; Z86.19 Personal history of other infectious and parasitic diseases
CPT/HCPCS: 36415; 70450; 71045; 71250; 72125; 74176; 80053; 80074; 81003; 83605; 83690; 83735; 84145; 84443; 85025; 85610; 85651; 86140; 86403; 87040; 87086; 87426; 87486; 87581; 87633; 87641; 87804; 93005; 94640; 94664; 96360; 99285; C9113; J0456; J0696; J3370; J7030; J7050; J7613; J7626; J7644; Q0144

== ENCOUNTER → 2022-02-20 07:54 | Outpatient (BNVA) | payer MEDICARE, OTHER, SELFPAY | PROVIDERS: PCP Family Medicine; Visit Provider Family Medicine | DX: D64.9 Anemia, unspecified (principal); I48.19 Other persistent atrial fibrillation; M19.011 Primary osteoarthritis, right shoulder | CPT/HCPCS: 80053; 85025 ==

== ENCOUNTER → 2022-02-27 09:33 | Outpatient (BNVA) | payer MEDICARE, OTHER, SELFPAY | PROVIDERS: PCP Family Medicine; Visit Provider Family Medicine | DX: D64.9 Anemia, unspecified (principal) | CPT/HCPCS: 85025 ==

== ENCOUNTER → 2022-03-17 11:11 | Outpatient (BNVA) | payer MEDICARE, OTHER, SELFPAY | PROVIDERS: PCP Family Medicine; Visit Provider Family Medicine | DX: D64.9 Anemia, unspecified (principal); F41.9 Anxiety disorder, unspecified; E78.5 Hyperlipidemia, unspecified; I10 Essential (primary) hypertension | CPT/HCPCS: 85025 ==

== ENCOUNTER 2022-04-09 15:20 | Oncology outpatient (recurring) (ONCR) | payer MEDICARE, OTHER, SELFPAY ==
[2022-04-09 17:12] LABS: Basophils % 1.1 %; Eosinophils # 0.1 10^3/uL (0.0-0.8); Eosinophils % 3.1 %; Hematocrit 37.4 % (42.0-52.0); Hemoglobin 11.8 g/dL (11.7-16.6); Lymphocytes # 0.5 10^3/uL (0.8-4.8); Lymphocytes % 20.7 %; Mean Corpuscular HGB Conc 31.6 g/dL (30.0-36.0); Mean Corpuscular Volume 85.6 fl (80-94); Mean Platelet Volume 10.7 fL (7.4-10.4); Monocytes # 0.3 10^3/uL (0.2-0.9); Monocytes % 9.6 %; Neutrophils # 1.71 10^3/uL (1.8-7.7); Neutrophils % 65.5 %; Nucleated Red Blood Cells % 0 %; Platelet Count 103 10^3/cmm (130-400); Red Blood Count 4.37 10^6/uL (4.1-5.3); Red Cell Distribution Width 14.7 % (12.1-15.1); White Blood Count 2.6 10^3/uL (4.0-10.0)
[2022-04-09 17:14] LABS: Erythrocyte Sedimentation Rate 21 mm/hr (0-10)
[2022-04-09 17:47] LABS: Alanine Aminotransferase 23 U/L (0-41); Albumin Level 4.4 g/dL (3.5-5.2); Alkaline Phosphatase 98 U/L (40-130); Anion Gap 15.9 (5-19); Aspartate Amino Transferase 20 U/L (0-40); Blood Urea Nitrogen 20 mg/dL (8-23); Calcium 9.2 mg/dL (8.5-10.5); Carbon Dioxide 24 mmol/L (22-29); Chloride 104 mmol/L (98-107); Globulin 3.2 g/dL (1.3-4.6); Glucose 110 mg/dL (65-115); Iron 39 ug/dL (59-158); Lactate Dehydrogenase 167 U/L (135-225); Osmolality Calculated 293 mOsm/kg (285-295); Percent Saturation 11.1 % (20-50); Potassium 3.9 mmol/L (3.5-5.1); Sodium 140 mmol/L (136-145); Total Bilirubin 1.3 mg/dL (0.15-1.2); Total Iron Binding Capacity 349 mcg/dl; Total Protein 7.6 g/dL (6.6-8.7); Unsaturated Iron Binding 310 ug/dL (112-347)
[2022-04-09 17:59] LABS: Vitamin B12 376 pg/mL (232-1245)
[2022-04-09 18:43] LABS: LAB Peripheral Smear Sent for Review
== END 2022-05-09 23:59 | disposition home or self-care (01) ==
PROVIDERS: PCP Family Medicine; Visit Provider Internal Medicine Medical Oncology
DX: D61.818 Other pancytopenia (principal); D64.9 Anemia, unspecified; D69.6 Thrombocytopenia, unspecified; D72.810 Lymphocytopenia; Z87.891 Personal history of nicotine dependence
CPT/HCPCS: 36415; 80053; 82607; 82746; 83010; 83540; 83550; 83615; 85025; 85045; 85651; 86140; 99204; 99205

== ENCOUNTER 2022-05-14 11:31 | Oncology outpatient (recurring) (ONCR) | payer MEDICARE, OTHER, SELFPAY ==
[2022-05-14 12:19] LABS: Basophils % 0.7 %; Eosinophils % 0.7 %; Hematocrit 39.2 % (42.0-52.0); Hemoglobin 12.6 g/dL (11.7-16.6); Lymphocytes # 0.5 10^3/uL (0.8-4.8); Lymphocytes % 19.2 %; Mean Corpuscular HGB Conc 32.1 g/dL (30.0-36.0); Mean Corpuscular Hemoglobin 27.9 pg (28.0-34.0); Mean Corpuscular Volume 86.9 fl (80-94); Mean Platelet Volume 10.1 fL (7.4-10.4); Monocytes # 0.3 10^3/uL (0.2-0.9); Neutrophils # 1.94 10^3/uL (1.8-7.7); Nucleated Red Blood Cells % 0 %; Platelet Count 111 10^3/cmm (130-400); Red Blood Count 4.51 10^6/uL (4.1-5.3); Red Cell Distribution Width 16.4 % (12.1-15.1); White Blood Count 2.8 10^3/uL (4.0-10.0)
[2022-05-14 12:41] LABS: Alanine Aminotransferase 18 U/L (0-41); Albumin Level 4.3 g/dL (3.5-5.2); Alkaline Phosphatase 83 U/L (40-130); Anion Gap 11.1 (5-19); Aspartate Amino Transferase 16 U/L (0-40); Blood Urea Nitrogen 15 mg/dL (8-23); Carbon Dioxide 26 mmol/L (22-29); Chloride 107 mmol/L (98-107); Ferritin 44 ng/mL (30-400); Glucose 123 mg/dL (65-115); Iron 146 ug/dL (59-158); Osmolality Calculated 292 mOsm/kg (285-295); Percent Saturation 49.3 % (20-50); Potassium 4.1 mmol/L (3.5-5.1); Sodium 140 mmol/L (136-145); Total Bilirubin 1.9 mg/dL (0.15-1.2); Total Iron Binding Capacity 296 mcg/dl; Total Protein 7.3 g/dL (6.6-8.7); Unsaturated Iron Binding 150 ug/dL (112-347)
[2022-05-14 13:03] LABS: Erythrocyte Sedimentation Rate 18 mm/hr (0-10)
== END 2022-06-08 23:59 | disposition home or self-care (01) ==
PROVIDERS: PCP Family Medicine; Visit Provider Internal Medicine Medical Oncology
DX: D61.818 Other pancytopenia (principal); D64.9 Anemia, unspecified; D69.6 Thrombocytopenia, unspecified; D72.810 Lymphocytopenia; Z87.891 Personal history of nicotine dependence; R16.1 Splenomegaly, not elsewhere classified; M85.89 Other specified disorders of bone density and structure, multiple sites; Z79.899 Other long term (current) drug therapy; R91.1 Solitary pulmonary nodule
CPT/HCPCS: 36415; 80053; 82728; 83540; 83550; 85025; 85651; 86140; 99214

== ENCOUNTER 2022-05-21 12:05 | Emergency (ER) | payer MEDICARE, OTHER, SELFPAY ==
--- NOTE | 2022-05-21 12:10 | XR_ITS ---
WS: [id number] EXAMINATION: XR chest 1V portable [id number] REASON FOR EXAM: chest pain COMPARISON: None available. ORDER DATE: 05/21/2022 12:12 PM TECHNIQUE: A single, portable frontal chest x-ray was obtained. X-RAY FINDINGS: The lungs are clear. Near a few old right rib fractures there is some minor pleural thickening in the area of the lateral right lung base.. No pleural effusions or pneumothorax. Cardiomediastinal silhouette is normal with atherosclerotic aortic change. No evidence for pulmonary edema. Soft tissue and osseous structures are unremarkable. No tubes or lines are present. XR/XR chest 1V portable [id number] IMPRESSION: Unremarkable frontal portable chest x-ray.
[2022-05-21 12:22] VITALS: BP 133/62; PULSE 59; TEMP 36.8; O2SAT 97
--- NOTE | 2022-05-21 12:22 | ECG_ITS ---
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 Measurements Intervals [place] Rate: 58 P: 59 ME: 244 QRS: -1 QRSD: 86 T: 52 QT: 440 QTc: 434 Interpretive Statements SINUS BRADYCARDIA WITH FIRST DEGREE AV BLOCK Compared to ECG 02/07/2022 04:18:12 Sinus rhythm no longer present Electronically Signed On 05-21-2022 16:21:40 CDT by Ganesh Agudelo M.D. [id number]
[2022-05-21 12:28] LABS: Basophils % 0.8 %; Eosinophils % 0.8 %; Hematocrit 39.1 % (42.0-52.0); Hemoglobin 12.8 g/dL (11.7-16.6); Lymphocytes # 0.5 10^3/uL (0.8-4.8); Lymphocytes % 19.7 %; Mean Corpuscular HGB Conc 32.7 g/dL (30.0-36.0); Mean Corpuscular Hemoglobin 28.5 pg (28.0-34.0); Mean Corpuscular Volume 87.1 fl (80-94); Mean Platelet Volume 10.7 fL (7.4-10.4); Monocytes # 0.2 10^3/uL (0.2-0.9); Monocytes % 7.6 %; Neutrophils # 1.69 10^3/uL (1.8-7.7); Neutrophils % 71.1 %; Nucleated Red Blood Cells % 0 %; Platelet Count 106 10^3/cmm (130-400); Red Blood Count 4.49 10^6/uL (4.1-5.3); Red Cell Distribution Width 16.5 % (12.1-15.1); White Blood Count 2.4 10^3/uL (4.0-10.0)
[2022-05-21 12:47] LABS: Troponin(5th) Baseline 6 ng/L (0-15)
[2022-05-21 12:49] LABS: Alanine Aminotransferase 26 U/L (0-41); Albumin Level 4.2 g/dL (3.5-5.2); Alkaline Phosphatase 83 U/L (40-130); Anion Gap 15.1 (5-19); Aspartate Amino Transferase 33 U/L (0-40); Blood Urea Nitrogen 16 mg/dL (8-23); Calcium 9.2 mg/dL (8.5-10.5); Carbon Dioxide 24 mmol/L (22-29); Chloride 106 mmol/L (98-107); Globulin 3.4 g/dL (1.3-4.6); Glucose 155 mg/dL (65-115); Osmolality Calculated 296 mOsm/kg (285-295); Potassium 4.1 mmol/L (3.5-5.1); Sodium 141 mmol/L (136-145); Total Bilirubin 1.8 mg/dL (0.15-1.2); Total Protein 7.6 g/dL (6.6-8.7)
[2022-05-21 12:51] VITALS: BP 129/63; PULSE 55; O2SAT 97
--- NOTE | 2022-05-21 13:23 | W.ED.CHESTPA ---
HPI - Chest Pain General: Chief Complaint: Chest Pain Stated Complaint: CHEST PAIN Time Seen by Provider: 05/21/22 12:10 Source: patient and family Mode of arrival: ambulatory Limitations: no limitations History of Present Illness: This patient has a known history of coronary artery disease and presents to the emergency department because of chest pain. He states he was in his normal state of health this morning but was out in the yard moving a chair. He states he was dragging it around the yard. He states that during this evolution he developed chest pain. He states that he stopped his activity and went in a house. He states the chest pain was similar to that he experienced with a heart attack 6 years ago. He states he took 1 nitroglycerin which did not seem to relieve his symptoms much but then took a second 1 and then when a couple of minutes his pain seemed to resolved. His then adds to the discussion. She states that her daughter was told by the patient to come in the house and when she came in the house she noted he was pale and had a cold sweat. She states that for him to complain of chest pain is rather unusual. has been faithful to all his medications and has not had any episodes like this previously. He states he is pain-free now and has been since the second nitroglycerin. MD complaint: chest pain Pertinent past history: coronary artery disease Onset: during exertion Pain location: substernal Severity: moderate Relieving factors: nitroglycerin Exacerbating factors: exertion Associated symptoms: Deny abdominal pain, dyspnea, fever(s), nausea or vomiting Treatment prior to arrival: aspirin and nitroglycerin Review of Systems Const: Denies: fever(s) or chills Eyes: Denies: change in vision ENMT: Denies: throat pain or odynophagia Card: Reports: chest pain Resp: Denies: dyspnea GI: Denies: abdominal pain, nausea or vomiting : Denies: flank pain, difficulty urinating or dysuria Musc: Denies: neck pain, back pain, extremity pain or extremity swelling Skin/Breast: Denies: rash Neuro: Denies: headache(s), numbness in extremities or weakness in extremities Endo: Denies: polyuria or polydipsia PFSH ED PFSH: Medical History Arteriosclerotic coronary artery disease Atrial fibrillation Coronary artery disease HTN (hypertension) Hyperlipidemia PATTI (obstructive sleep apnea) Salmonella enteritis Surgical History S/P cholecystectomy (2008) S/P PTCA (percutaneous transluminal coronary angioplasty) (2013) Family History Other Cancer Social History Smoking and tobacco status: former smoker Quit status (tobacco): has quit using tobacco Former quit date comment: Smoked x 5 to 6 years Alcohol intake: never Lives independently: Yes Household members: spouse and children Marital status: Physical Exam Narrative: EXAM NARRATIVE: He appears to be comfortable in no acute distress makes good eye contact answers questions in a goal-directed fashion. Const: COMMON NORMALS: no acute distress, average body habitus and alert GENERAL APPEARANCE: cooperative and comfortable HENMT: COMMON NORMALS: normocephalic, Normal nasal mucous membranes and turbinates present, moist oral mucous membranes and oropharynx normal HEAD & SCALP: normocephalic NOSE: Normal nasal mucous membranes and turbinates present Eye: COMMON NORMALS: Equal, round and reactive pupils present, EOMs intact bilaterally and conjunctivae normal CONJUNCTIVA: Yes conjunctivae normal PUPIL: Yes Equal, round and reactive pupils present Neck/C-Spine: COMMON NORMALS: full ROM, no lymphadenopathy and no JVD Chest: COMMONS NORMALS: normal inspection of the chest and normal palpation of entire chest wall Resp: COMMON NORMALS: normal respiratory effort and No retractions EFFORT & INSPECTION: Yes able to speak in complete sentences Cardio: COMMON NORMALS: no JVD, regular rate, regular rhythm, No murmurs present (Cardio) and Peripheral pulses 2+ throughout RATE: regular rate RHYTHM: regular rhythm PERIPHERAL PULSES: Peripheral pulses 2+ throughout GI: COMMON NORMALS: Normal to inspection, nondistended, normoactive bowel sounds present, Soft to palpation and non-tender PALPATION: Yes Soft to palpation Back/Pelvis: COMMON NORMALS: thoracic and lumbar spine normal to inspection, no thoracic nor lumbar tenderness and thoraco-lumbar ROM normal Extremity: COMMON NORMALS: normal to inspection, full ROM, capillary refill normal, no calf tenderness and no pedal edema Neuro: COMMON NORMALS: moves all extremities, no focal motor deficits and no sensory deficits noted SENSORIUM/ORIENTATION: Yes alert CRANIAL NERVES: Yes CN normal except as noted Psych: COMMON NORMALS: mental status grossly normal and Normal thought process present THOUGHT PROCESS: Normal thought process present Skin: COMMON NORMALS: no rashes or lesions noted and no wounds GENERAL SKIN EXAM: no rashes or lesions noted Course Reevaluation(s): Reevaluation #1: Patient is remained pain-free throughout his entire emergency department stay. Repeat examination reveals no evidence of new or worrisome findings. No evidence of arrhythmia or other concerns while in the emergency department. I reviewed his current findings with both he and his family. He appears to have fixed coronary disease with angina with greater than normal activity. No evidence of acute ongoing ischemia today. I discussed the process of angina versus acute PA etc. with patient and family. He is stable at this time to be discharged with outpatient follow-up. Time: 17:22 Vital Signs: Vital signs: Vital Signs Temperature 98.2 F 05/21/22 12:22 Pulse Rate 53 L 05/21/22 15:52 Blood Pressure 134/68 05/21/22 15:52 Pulse Oximetry 95 05/21/22 15:52 Oxygen Delivery Me thod Room Air 05/21/22 12:51 MDM - Chest Pain Medical Decision Making Patient with known coronary artery disease who suffered an episode of angina today with atypical exertion. It was relieved after his second nitroglycerin but he made his way to the emergency department for reevaluation. His emergency department evaluation was engaged to ensure no evidence of STEMI or any other ongoing myocardial ischemia. Serial troponins, serial EKGs are reassuring and he was symptom-free the entire emergency department time of observation. We discussed outpatient management as well as the pathology of fixed coronary artery disease and potential for developing continued chest pain etc. that would necessitate additional evaluation. Stable at this time. All questions were answered. Medical Records I reviewed the patient's medical records. Lab Data I reviewed the patient's lab results. Leukopenia noted on prior CBCs in the past. 05/21/22 12:18 05/21/22 12:18 Radiology Impressions Chest X-Ray 05/21/22 12:10 IMPRESSION: Unremarkable frontal portable chest x-ray. Laboratory Results WBC 2.4 10^3/uL (4.0-10.0) L 05/21/22 12:18 RBC 4.49 10^6/uL (4.1-5.3) 05/21/22 12:18 Hgb 12.8 g/dL (11.7-16.6) 05/21/22 12:18 Hct 39.1 % (42.0-52.0) L 05/21/22 12:18 MCV 87.1 fl (80-94) 05/21/22 12:18 MCH 28.5 pg (28.0-34.0) 05/21/22 12:18 MCHC 32.7 g/dL (30.0-36.0) 05/21/22 12:18 RDW 16.5 % (12.1-15.1) H 05/21/22 12:18 Plt Count 106 10^3/cmm (130-400) L 05/21/22 12:18 MPV 10.7 fL (7.4-10.4) H 05/21/22 12:18 Neut % (Auto) 71.1 % 05/21/22 12:18 Lymph % (Auto) 19.7 % 05/21/22 12:18 [place] % (Auto) 7.6 % 05/21/22 12:18 Eos % (Auto) 0.8 % 05/21/22 12:18 Baso % (Auto) 0.8 % 05/21/22:18 Neut # (Auto) 1.69 10^3/uL (1.8-7.7) L 05/21/22 12:18 Lymph # (Auto) 0.5 10^3/uL (0.8-4.8) L 05/21/22 12:18 [place] # (Auto) 0.2 10^3/uL (0.2-0.9) 05/21/22 12:18 Eos # (Auto) 0.0 10^3/uL (0.0-0.8) 05/21/22:18 Baso # (Auto) 0.0 10^3/uL (0.0-0.1) 05/21/22 12:18 Nucleated RBC % (auto) 0 % 05/21/22: Nucleated RBCs # 0.0 /100WBC 05/21/22 12:18 Sodium 141 mmol/L (136-145) 05/21/22 12:18 Potassium 4.1 mmol/L (3.5-5.1) 05/21/22 12:18 Chloride 106 mmol/L (98-107) 05/21/22 12:18 Carbon Dioxide 24 mmol/L (22-29) 05/21/22 12:18 Anion Gap 15.1 (5-19) 05/21/22 12:18 BUN 16 mg/dL (8-23) 05/21/22 12:18 Creatinine 1.0 mg/dL (0.7-1.2) 05/21/22 12:18 GFR Calculation Not Reportable 05/21/22 12:18 Glucose 155 mg/dL (65-115) H 05/21/22 12:18 Calculated Osmolality 296 mOsm/kg (285-295) H 05/21/22 12:18 Calcium 9.2 mg/dL (8.5-10.5) 05/21/22 12:18 Total Bilirubin 1.8 mg/dL (0.15-1.2) H 05/21/22 12:18 AST 33 U/L (0-40) 05/21/22 12:18 ALT 26 U/L (0-41) 05/21/22 12:18 Alkaline Phosphatase 83 U/L (40-130) 05/21/22 12:18 Troponin T Baseline 6 ng/L (0-15) 05/21/22 12:18 Troponin T 120 Minute 6.03 ng/L (0-15) 05/21/22 14:24 Delta Troponin T 0.03 ABS# (0-10) 05/21/22 14:24 Total Protein 7.6 g/dL (6.6-8.7) 05/21/22 12:18 Albumin 4.2 g/dL (3.5-5.2) 05/21/22 12:18 Globulin 3.4 g/dL (1.3-4.6) 05/21/22 12:18 EKG Data EKG 1: I personally reviewed and interpreted this EKG as follows: Interpretation: Contemporaneous review of resting EKG reveals a ventricular rate of 58 bpm consistent with sinus bradycardia. He has a prolonged [place] interval consistent with a first-degree AV block. QRS duration is normal. Corrected QT normal intervals normal. Boring are normal. No evidence of acute ST-T wave changes at this time. Discharge Plan Discharge Patient Disposition: Home Clinical Impression: Angina of effort, Coronary artery disease Condition: Stable Prescriptions: No Action magnesium oxide 400 mg magnesium capsule 400 mg PO BID isosorbide mononitrate 30 mg tablet extended release 24 hr 60 mg PO BEDTIME aspirin [Adult Low Dose Aspirin] 81 mg tablet,delayed release (DR/EC) 81 mg PO QAM nitroglycerin [Nitrostat] 0.4 mg tablet, sublingual 0.4 mg SUBLINGUAL Q5M PRN (Reason: Chest Pain) cetirizine [Zyrtec] 10 mg tablet 10 mg PO QAM sotalol 120 mg tablet 120 mg PO BID Qty: 180 3RF alprazolam 0.25 mg tablet 0.25 mg PO BID PRN (Reason: anxiety) Qty: 20 2RF iron 325 mg (65 mg iron) Tablet 325 mg PO DAILY albuterol sulfate 90 mcg/actuation HFA aerosol inhaler 1 puff INHALATION Q6H PRN (Reason: Shortness Of Breath) atorvastatin 20 mg tablet 20 mg PO QAM clopidogrel 75 mg tablet 75 mg PO QAM amlodipine 5 mg tablet 5 mg PO BEDTIME tamsulosin 0.4 mg capsule 0.4 mg PO BEDTIME pantoprazole 40 mg tablet,delayed release (DR/EC) 40 mg PO BID montelukast 10 mg tablet 10 mg PO BEDTIME Discharge Orders: Discharge ED (Routine); Ordered 05/21/22 Ordered By: Geovanni Serra Referrals: Kam Regan MD [Primary Care Provider] - Discharge Diet: Advance as tolerated Discharge Activity: Limit activity as instructed Patient Instructions: Opioid Safety, Pain Management Activity Restrictions/Additional Instructions: Continue all your previously prescribed medications. If you develop recurrent chest pain that is not relieved by use of up to 3 nitroglycerin call 911 and return to the emergency department immediately. Low up with your regular doctor next week as scheduled. Have any other concerns you are welcome to return to the emergency department at any time. Coding Level of Care Code ED Paediatric Surgeon for Trent Lanza
[2022-05-21 14:08] VITALS: BP 129/70; PULSE 54; O2SAT 96
--- NOTE | 2022-05-21 14:10 | ECG_ITS ---
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 Measurements Intervals [place] Rate: 52 P: 220 CA: 349 QRS: -2 QRSD: 78 T: 30 QT: 458 QTc: 427 Interpretive Statements ELECT[employer] PACEMAKER Compared to ECG 05/21/2022 12:22:12 Sinus bradycardia no longer present First degree AV block no longer present Electronically Signed On 05-21-2022 16:22:43 CDT by Ganesh Agudelo M.D. [id number]
[2022-05-21 15:03] LABS: Troponin 5 2HR 6.03 ng/L (0-15)
[2022-05-21 15:34] LABS: Troponin 5 2HR Delta 0.03 ABS# (0-10)
[2022-05-21 15:52] VITALS: BP 134/68; PULSE 53; O2SAT 95
[2022-05-21 17:36] VITALS: PULSE 55; O2SAT 96
== END 2022-05-21 17:37 | disposition home or self-care (01) ==
PROVIDERS: Physician Assistant; Emergency Provider Emergency Medicine; PCP Family Medicine
DX: I25.118 Atherosclerotic heart disease of native coronary artery with other forms of angina pectoris (principal); Z79.82 Long term (current) use of aspirin; Z79.02 Long term (current) use of antithrombotics/antiplatelets; I10 Essential (primary) hypertension; E78.5 Hyperlipidemia, unspecified; Z87.891 Personal history of nicotine dependence
CPT/HCPCS: 36415; 71045; 80053; 84484; 85025; 93005; 99285

== ENCOUNTER 2022-06-18 11:02 | Oncology outpatient (recurring) (ONCR) | payer MEDICARE, OTHER, SELFPAY ==
[2022-06-18 11:29] LABS: Basophils % 0.7 %; Eosinophils % 1.1 %; Hemoglobin 12.5 g/dL (11.7-16.6); Lymphocytes # 0.6 10^3/uL (0.8-4.8); Lymphocytes % 22.2 %; Mean Corpuscular HGB Conc 32.9 g/dL (30.0-36.0); Mean Corpuscular Volume 88.2 fl (80-94); Mean Platelet Volume 9.6 fL (7.4-10.4); Monocytes # 0.3 10^3/uL (0.2-0.9); Monocytes % 11.5 %; Neutrophils % 64.5 %; Nucleated Red Blood Cells % 0 %; Platelet Count 104 10^3/cmm (130-400); Red Blood Count 4.31 10^6/uL (4.1-5.3); White Blood Count 2.8 10^3/uL (4.0-10.0)
[2022-06-18 11:48] LABS: Alanine Aminotransferase 18 U/L (0-41); Alkaline Phosphatase 87 U/L (40-130); Anion Gap 14.2 (5-19); Aspartate Amino Transferase 18 U/L (0-40); Blood Urea Nitrogen 17 mg/dL (8-23); Calcium 8.7 mg/dL (8.5-10.5); Carbon Dioxide 25 mmol/L (22-29); Chloride 104 mmol/L (98-107); Ferritin 59 ng/mL (30-400); Globulin 3.2 g/dL (1.3-4.6); Glucose 159 mg/dL (65-115); Iron 132 ug/dL (59-158); Lactate Dehydrogenase 162 U/L (135-225); Osmolality Calculated 293 mOsm/kg (285-295); Potassium 4.2 mmol/L (3.5-5.1); Sodium 139 mmol/L (136-145); Total Bilirubin 1.6 mg/dL (0.15-1.2); Total Iron Binding Capacity 269 mcg/dl; Total Protein 7.2 g/dL (6.6-8.7); Unsaturated Iron Binding 137 ug/dL (112-347)
== END 2022-07-09 23:59 | disposition home or self-care (01) ==
PROVIDERS: Nurse Practitioner; PCP Family Medicine; Visit Provider Internal Medicine Medical Oncology
DX: D61.818 Other pancytopenia (principal); R16.1 Splenomegaly, not elsewhere classified; E80.7 Disorder of bilirubin metabolism, unspecified; Z79.899 Other long term (current) drug therapy; Z87.891 Personal history of nicotine dependence
CPT/HCPCS: 36415; 80053; 82728; 83540; 83550; 83615; 85025; 99214

== ENCOUNTER → 2022-07-14 14:45 | Outpatient (BNVA) | payer MEDICARE, OTHER, SELFPAY | PROVIDERS: PCP Family Medicine; Referring Provider Internal Medicine Medical Oncology; Visit Provider Dermatology | DX: C44.319 Basal cell carcinoma of skin of other parts of face (principal); C44.329 Squamous cell carcinoma of skin of other parts of face; L57.0 Actinic keratosis; L57.8 Other skin changes due to chronic exposure to nonionizing radiation; L82.1 Other seborrheic keratosis; L81.4 Other melanin hyperpigmentation; Z85.828 Personal history of other malignant neoplasm of skin; Z87.891 Personal history of nicotine dependence | CPT/HCPCS: 11102; 11103; 17000; 17003; 99203 ==

== ENCOUNTER 2022-07-18 08:54 | Oncology outpatient (recurring) (ONCR) | payer MEDICARE, OTHER, SELFPAY ==
[2022-07-18 09:27] VITALS: BP 120/61; PULSE 53; RESP 18; TEMP 36.4; O2SAT 97
[2022-07-18 09:41] LABS: Hematocrit 38.8 % (42.0-52.0); Hemoglobin 12.8 g/dL (11.7-16.6); Lymphocytes # 0.6 10^3/uL (0.8-4.8); Lymphocytes % 18.1 %; Mean Corpuscular Hemoglobin 29.6 pg (28.0-34.0); Mean Corpuscular Volume 89.8 fl (80-94); Mean Platelet Volume 10.3 fL (7.4-10.4); Monocytes # 0.3 10^3/uL (0.2-0.9); Monocytes % 9.4 %; Neutrophils # 2.18 10^3/uL (1.8-7.7); Neutrophils % 70.2 %; Nucleated Red Blood Cells % 0 %; Platelet Count 104 10^3/cmm (130-400); Red Blood Count 4.32 10^6/uL (4.1-5.3); Red Cell Distribution Width 15.7 % (12.1-15.1); White Blood Count 3.1 10^3/uL (4.0-10.0)
[2022-07-18 09:55] LABS: Alanine Aminotransferase 20 U/L (0-41); Albumin Level 4.3 g/dL (3.5-5.2); Alkaline Phosphatase 83 U/L (40-130); Anion Gap 14.1 (5-19); Aspartate Amino Transferase 18 U/L (0-40); Blood Urea Nitrogen 15 mg/dL (8-23); Calcium 8.7 mg/dL (8.5-10.5); Carbon Dioxide 25 mmol/L (22-29); Chloride 106 mmol/L (98-107); Globulin 2.8 g/dL (1.3-4.6); Glucose 126 mg/dL (65-115); Osmolality Calculated 294 mOsm/kg (285-295); Potassium 4.1 mmol/L (3.5-5.1); Sodium 141 mmol/L (136-145); Total Bilirubin 2.1 mg/dL (0.15-1.2); Total Protein 7.1 g/dL (6.6-8.7)
== END 2022-08-08 23:59 | disposition home or self-care (01) ==
PROVIDERS: Nurse Practitioner Family; PCP Family Medicine; Visit Provider Internal Medicine Medical Oncology
DX: D61.818 Other pancytopenia (principal); R16.1 Splenomegaly, not elsewhere classified; E80.7 Disorder of bilirubin metabolism, unspecified; Z79.899 Other long term (current) drug therapy; Z87.891 Personal history of nicotine dependence
CPT/HCPCS: 36415; 80053; 85025; 99213

== ENCOUNTER 2022-08-04 10:04 | Day surgery (SDC) | payer MEDICARE, OTHER, SELFPAY ==
--- NOTE | 2022-07-18 11:02 | ANE.PACU2 ---
Inpatient post-anesthesia follow up: Airway intact: Yes Vital signs: Temperature Pulse Rate Respiratory Rate Blood Pressure Pulse Oximetry Oxygen Delivery Me thod Oxygen Flow Rate Fraction of Inspir ed Oxygen Hydration adequate: Yes Nausea and vomiting: No Pain level: 1 Mental status: Baseline
[2022-07-18 12:39] VITALS: BMI 32.5
[2022-08-04 10:35] VITALS: BP 120/67; PULSE 52; RESP 16; TEMP 36.3; O2SAT 96
[2022-08-04] MEDS: sodium chloride 0.9% 1,000 ML 30 ML IV (10:42)
[2022-08-04 11:09] LABS: Basophils % 1.4 %; Eosinophils % 0.7 %; Hemoglobin 13.9 g/dL (11.7-16.6); Lymphocytes # 0.6 10^3/uL (0.8-4.8); Lymphocytes % 19.4 %; Mean Corpuscular HGB Conc 33.1 g/dL (30.0-36.0); Mean Corpuscular Hemoglobin 29.6 pg (28.0-34.0); Mean Corpuscular Volume 89.6 fl (80-94); Mean Platelet Volume 10.2 fL (7.4-10.4); Monocytes # 0.3 10^3/uL (0.2-0.9); Monocytes % 9.5 %; Neutrophils # 1.94 10^3/uL (1.8-7.7); Neutrophils % 68.6 %; Nucleated Red Blood Cells % 0 %; Platelet Count 107 10^3/cmm (130-400); Red Blood Count 4.69 10^6/uL (4.1-5.3); Red Cell Distribution Width 15.1 % (12.1-15.1); White Blood Count 2.8 10^3/uL (4.0-10.0)
--- NOTE | 2022-08-04 11:16 | ANES.PREANE2 ---
Pre-Anesthetic Assessment Height/Weight: Height 1.65 m Weight 88.904 kg Temp Pulse Resp BP Pulse Ox O2 Del Method 97.4 F L 52 L 16 120/67 96 Room Air 08/04/22 10:35 08/04/22 10:35 08/04/22 10:35 08/04/22 10:35 08/04/22 10:35 08/04/22 10:35 Operation Date: 07/21/22 17:00 Proposed Procedures p Bone Marrow Biospy With Aspiration(Not Applicable) - Raj Gomes MD Operation Date: 08/04/22 12:00 Proposed Procedures p Bone Marrow Biospy With Aspiration(Not Applicable) - Raj Gomes MD Familial anesthetic complications: None Was Beta Kortney taken within 24 hours: N/A Was Clonidine taken within 24 hours: N/A Last intake: Intake Last Liquid Date 08/03/22 Last Liquid Time 17:00 Last Solid Date 08/03/22 Last Solid Time 16:00 Social No alcohol and No tobacco former smoker Exam alert, oriented x 3, clear to auscultation bilaterally and regular rate & rhythm Airway Mallampati: Class III Dentition: other (no teeth) Pulmonary Sleep Apnea CV/HEM Atrial Fibrillation, Coronary Artery Disease (stent 2013) and Hypertension 09/29 cath llabb Conclusions ? 1. 1-Normal left main2-Patent previously placed proximal LAD stent rest of the vessel has diffuse luminal irregularities3-Nondominant circumflex, obtuse marginal has luminal irregularity4-Dominant RCA with proximal 60% and distal 40% stenosis . ? 2. There is obstructive? coronary artery disease with one vessel disease. ? 3. FFR: After equalizing the distal and proximal pressure of FFR wire proximal to the lesion, mid to distal RCA was crossed with FFR wire. IV adenosine at rate of 140 mcg/min was started. Patient did not compliant of any symptoms, at then end of two minutes FFR was recorded as 0.93, which is not significant . Recommendations ? * Medical management advised. Diagnostic RX Recommendation: ? ? medical therapy and/or counseling GI Gastroesophageal Reflux Disease Metabolic Hyperlipidemia Anesthetic Plan ASA status: 4 Risk of > 500 ml blood loss (7ml/kg in children): No Medications/Allergies Home Medications Medication Instructions Recorded Confirmed Last Taken Type aspirin 81 mg tablet,delayed 81 mg PO QAM 05/26/19 08/04/22 07/18/22 History release (Adult Low Dose Aspirin) cetirizine 10 mg tablet (Zyrtec) 10 mg PO QAM 05/26/19 08/04/22 08/03/22 History isosorbide mononitrate 30 mg 60 mg PO BEDTIME 05/26/19 08/04/22 08/03/22 History tablet,extended release 24 hr magnesium oxide 400 mg PO BID 05/26/19 08/04/22 08/03/22 History sotalol 120 mg tablet 120 mg PO BID #180 tabs 10/22/21 08/04/22 08/04/22 Rx alprazolam 0.25 mg tablet 0.25 mg PO BID PRN anxiety #20 tabs 02/11/22 08/04/22 Unknown Rx albuterol sulfate 90 mcg/actuation 1 puff inhalation Q6H PRN 05/21/22 08/04/22 Unknown History aerosol inhaler Shortness Of Breath amlodipine 5 mg tablet 5 mg PO BEDTIME 05/21/22 08/04/22 08/03/22 History atorvastatin 20 mg tablet 20 mg PO QAM 05/21/22 08/04/22 08/03/22 History clopidogrel 75 mg tablet 75 mg PO QAM 05/21/22 08/04/22 07/18/22 History ferrous sulfate 325 mg (65 mg 325 mg PO DAILY 05/21/22 08/04/22 08/03/22 History iron) tablet (iron) montelukast 10 mg tablet 10 mg PO BEDTIME 05/21/22 08/04/22 08/03/22 History pantoprazole 40 mg tablet,delayed 40 mg PO BID 05/21/22 08/04/22 08/04/22 History release tamsulosin 0.4 mg capsule 0.4 mg PO BEDTIME 05/21/22 08/04/22 08/03/22 History nitroglycerin 0.4 mg sublingual 0.4 mg sublingual Q5M PRN Chest 05/27/22 08/04/22 2 Weeks Ago Rx tablet (Nitrostat) Pain #30 tabs ~07/04/22 Allergies Allergy/AdvReac Type Severity Reaction Status Date / Time amoxicillin [From Augmentin] Allergy Mild ADR-Diarrhe Verified 08/04/22 10:33 a clavulanic acid Allergy Mild ADR-Diarrhe Verified 08/04/22 10:33 [From Augmentin] a Current Medications Generic Name Dose Route Start Last Admin Trade Name Freq PRN Reason Stop Dose Admin Sodium Chloride 1,000 mls @ 30 mls/hr 08/04/22 10:30 08/04/22 10:42 Sodium Chloride 0.9% IV 08/05/22 10:29 30 mls/hr .Q24H GREGORIO Administration PFSH Anesthesia Medical History Arteriosclerotic coronary artery disease Atrial fibrillation Coronary artery disease HTN (hypertension) Hyperlipidemia PATTI (obstructive sleep apnea) Salmonella enteritis Surgical History S/P cholecystectomy (2007) S/P PTCA (percutaneous transluminal coronary angioplasty) (2013) Family History Other Cancer Social History Smoking and tobacco status: former smoker Quit status (tobacco): has quit using tobacco Former quit date comment: Smoked x 5 to 6 years Alcohol intake: never Substance/Drug Use: never Lives independently: Yes Household members: spouse and children Marital status: Data Anesthesia 08/04/22 10:48 Short CBC 08/04/22 Range/Units 10:48 WBC 2.8 L (4.0-10.0) 10^3/uL Hgb 13.9 (11.7-16.6) g/dL Hct 42.0 (42.0-52.0) % MCV 89.6 (80-94) fl Plt Count 107 L (130-400) 10^3/cmm Neut % (Auto) 68.6 % Neut # (Auto) 1.94 (1.8-7.7) 10^3/uL Cardiac Studies: Sestamibi Stress Test (Cardiology) 08/27/20 Cardiac Event Monitor 12/04/21
--- NOTE | 2022-08-04 12:16 | W.PM.OPSUD ---
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
--- NOTE | 2022-08-04 12:45 | P.PCN_ITS ---
Bone Marrow Biopsy Bone Marrow Biopsy: I was consulted by [] office regarding bone marrow biopsy on Ky montejo []. 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 In the Outpatient Services Department, with nursing staff and laboratory technologists in attendance, the procedure was discussed with the patient. Appropriate consent form had been signed. Appropriate alternatives, benefits and risks of procedure were discussed with the patient and he was pre- operatively assessed with a history and physical by myself and cleared for the biopsy procedure. The patient did request IV sedation and that was provided by the Anesthesia Department. Under aseptic condition posterior right iliac area was cleaned and prepped, local anesthesia was given, about 15 cc of bone marrow aspirate and core biopsy was obtained, patient tolerated procedure well, hemostasis obtained, specimen was sent for routine histopathology, cytogenetic, flow cytometry, FISH for MDS and heme next generation sequencing. Postprocedure nursing instructions were given Thank you for allowing me to participate in this patient's care and diagnosis. Coding Level of Care Code Acute Code for Trent Lanza
[2022-08-04 12:46] VITALS: BP 104/59; PULSE 60; RESP 16; TEMP 36.4; O2SAT 95
[2022-08-04 12:58] VITALS: BP 115/67; PULSE 60; RESP 18; O2SAT 95
--- NOTE | 2022-08-04 13:52 | ANE.PACU2 ---
Inpatient post-anesthesia follow up: Airway intact: Yes Vital signs: Temperature 97.6 F Pulse Rate 60 Respiratory Rate 18 Blood Pressure 115/67 Pulse Oximetry 95 Oxygen Delivery Me thod Room Air Oxygen Flow Rate Fraction of Inspir ed Oxygen Hydration adequate: Yes Nausea and vomiting: No Pain level: 1 Mental status: Baseline
[2022-08-05 14:48] LABS: Leukemia Profile (BBPL) See Report; Lymphoma Profile (BBPL) See Report
[2022-08-14 08:33] LABS: Chromosome Analysis BBPL See Report; MDS Panel (BBPL) See Report
== END 2022-08-04 13:15 | disposition home or self-care (01) ==
PROVIDERS: PCP Family Medicine; Visit Provider Internal Medicine Hematology & Oncology
PROC: 07DT3ZX Extraction of Bone Marrow, Percutaneous Approach, Diagnostic (ICD-10-PCS; CPT 38222; principal; 2022-08-04 12:00)
DX: D61.818 Other pancytopenia (principal); G47.30 Sleep apnea, unspecified; I48.91 Unspecified atrial fibrillation; I25.10 Atherosclerotic heart disease of native coronary artery without angina pectoris; I10 Essential (primary) hypertension; Z79.82 Long term (current) use of aspirin; Z79.02 Long term (current) use of antithrombotics/antiplatelets; Z87.891 Personal history of nicotine dependence
CPT/HCPCS: 36415; 38222; 81455; 85025; 88184; 88185; 88237; 88264; 88291; 88305; 88311; 88367; 88374; J2704; J3490; J7030

== ENCOUNTER → 2022-08-26 09:23 | Outpatient (BNVA) | payer MEDICARE, OTHER, SELFPAY | PROVIDERS: PCP Family Medicine; Visit Provider Dermatology | DX: C44.329 Squamous cell carcinoma of skin of other parts of face (principal); C44.319 Basal cell carcinoma of skin of other parts of face | CPT/HCPCS: 12052; 13132; 17311 ==

== ENCOUNTER → 2022-09-03 10:36 | Outpatient (BNVA) | payer MEDICARE, OTHER, SELFPAY | PROVIDERS: PCP Family Medicine; Visit Provider Dermatology | DX: Z48.02 Encounter for removal of sutures (principal) | CPT/HCPCS: 99024; 99212 ==

== ENCOUNTER → 2022-10-08 13:01 | Outpatient (BNVA) | payer MEDICARE, OTHER, SELFPAY | PROVIDERS: PCP Family Medicine; Visit Provider Family Medicine | DX: D61.818 Other pancytopenia (principal); D69.6 Thrombocytopenia, unspecified; D64.9 Anemia, unspecified | CPT/HCPCS: 80053; 82668; 85025 ==

== ENCOUNTER → 2022-10-20 13:31 | Outpatient (BNVA) | payer MEDICARE, OTHER, SELFPAY | PROVIDERS: PCP Family Medicine; Visit Provider Internal Medicine Cardiovascular Disease | DX: I25.10 Atherosclerotic heart disease of native coronary artery without angina pectoris (principal); I48.19 Other persistent atrial fibrillation; I10 Essential (primary) hypertension; E78.5 Hyperlipidemia, unspecified; G47.33 Obstructive sleep apnea (adult) (pediatric); Z87.891 Personal history of nicotine dependence | CPT/HCPCS: 99214 ==

== ENCOUNTER 2022-11-04 12:00 | Oncology outpatient (recurring) (ONCR) | payer MEDICARE, OTHER, SELFPAY ==
[2022-11-04 12:14] LABS: Basophils % 1.1 %; Eosinophils % 0.8 %; Hematocrit 38.8 % (37-53); Lymphocytes # 0.5 10^3/uL (0.8-4.8); Lymphocytes % 18.5 %; Mean Corpuscular HGB Conc 34.3 g/dL (30-55); Mean Corpuscular Hemoglobin 30.7 pg (27-33); Mean Corpuscular Volume 89.6 fl (82-101); Mean Platelet Volume 9.9 fL (7.4-10.4); Monocytes # 0.3 10^3/uL (0.2-0.9); Monocytes % 9.8 %; Neutrophils # 1.84 10^3/uL (1.8-7.7); Neutrophils % 69.4 %; Nucleated Red Blood Cells % 0 %; Platelet Count 102 10^3/cmm (157-399); Red Blood Count 4.33 10^6/uL (3.85-5.65); Red Cell Distribution Width 14.2 % (12.1-15.1); White Blood Count 2.65 10^3/uL (3.29-11.43)
[2022-11-04 12:30] LABS: Alanine Aminotransferase 19 U/L (0-41); Albumin Level 4.3 g/dL (3.5-5.2); Alkaline Phosphatase 84 U/L (40-130); Anion Gap 13.2 (5-19); Aspartate Amino Transferase 18 U/L (0-40); Blood Urea Nitrogen 18 mg/dL (8-23); Calcium 9.1 mg/dL (8.5-10.5); Carbon Dioxide 27 mmol/L (22-29); Chloride 104 mmol/L (98-107); Globulin 3.1 g/dL (1.3-4.6); Glucose 142 mg/dL (65-115); Lactate Dehydrogenase 162 U/L (135-225); Osmolality Calculated 294 mOsm/kg (285-295); Potassium 4.2 mmol/L (3.5-5.1); Sodium 140 mmol/L (136-145); Total Bilirubin 2.3 mg/dL (0.15-1.2); Total Protein 7.4 g/dL (6.6-8.7)
== END 2022-11-08 23:59 | disposition home or self-care (01) ==
PROVIDERS: PCP Family Medicine; Visit Provider Internal Medicine Medical Oncology
DX: D61.818 Other pancytopenia (principal)
CPT/HCPCS: 36415; 80053; 83615; 85025; 99213; 99214

== ENCOUNTER 2022-11-29 03:39 | Emergency (ER) | payer MEDICARE, OTHER, SELFPAY ==
[2022-11-29 03:43] VITALS: BP 143/73; PULSE 71; RESP 20; TEMP 36.6; O2SAT 92; BMI 31.6
--- NOTE | 2022-11-29 04:26 | XRR_ITS ---
PROCEDURE INFORMATION: Exam: XR Left Humerus Exam date and time: 11/29/2022 4:33 AM Age: 82 years old Clinical indication: Injury or trauma; Arm, upper; Left; Patient HX: Patient fell at home falling backwards into glass cabinet breaking glass. Patient has laceration to posterior proximal humerus. ; Additional info: Fall laceration TECHNIQUE: Imaging protocol: Radiologic exam of the left humerus. Views: 2 or more views. COMPARISON: [place] bone scan whole body* [id number] 03/04/2017 8:05 AM FINDINGS: Bones/joints: Normal. Soft tissues: Normal. XR/[place] [id number] IMPRESSION: No acute findings.
--- NOTE | 2022-11-29 04:26 | CTR_ITS ---
PROCEDURE INFORMATION: Exam: CT Head Without Contrast Exam date and time: 11/29/2022 5:22 AM Age: 82 years old Clinical indication: Injury or trauma; Fall; Blunt trauma (contusions or hematomas); Patient HX: Patient fell at home bacwards into glass cabinet. C/O dizziness. Anticoagulated. ; Additional info: Dizziness, fall TECHNIQUE: Imaging protocol: Computed tomography of the head without contrast. Radiation optimization: All CT scans at this facility use at least one of these dose optimization techniques: automated exposure control; mA and/or kV adjustment per patient size (includes targeted exams where dose is matched to clinical indication); or iterative reconstruction. REPORTING DATA: Count of CT and Cardiac NM exams in prior 12 months: This patient has received 4 known CTs and 0 known cardiac nuclear medicine studies in the 12 months prior to the current study. COMPARISON: CT head wo con* [id number] 02/07/2022 3:54 AM RADIATION DOSE METRICS: Total DLP (mGy-cm): 1316.03 FINDINGS: Brain: There is mild to moderate small vessel disease. There is no evidence of acute parenchymal hemorrhage, extra-axial collection, or acute infarction. There is no mass effect, midline shift, or downward herniation. Cerebral ventricles: No ventriculomegaly. Paranasal sinuses: There is moderate paranasal sinus disease. Mastoid air cells: Visualized mastoid air cells are well aerated. Bones/joints: Unremarkable. No acute fracture. Soft tissues: Unremarkable. CT/CT head wo con* [id number] IMPRESSION: [id number] small vessel disease. No evidence of acute intracranial process.
--- NOTE | 2022-11-29 04:26 | XRR_ITS ---
PROCEDURE INFORMATION: Exam: XR Chest Exam date and time: 11/29/2022 4:33 AM Age: 82 years old Clinical indication: Prior surgery; Surgery date: 6+ months; Surgery type: Ptca; Patient HX: Patient fell at home falling backwards into glass cabinet. ; Additional info: Dizziness, fall TECHNIQUE: Imaging protocol: Radiologic exam of the chest. Views: 1 view. COMPARISON: CR XR chest 1V portable [id number] 05/21/2022 12:15 PM FINDINGS: Lungs: Unremarkable. No consolidation. Pleural spaces: Unremarkable. No pleural effusion. No pneumothorax. Heart/Mediastinum: The heart and mediastinum are not well assessed. Bones/joints: Old bilateral rib fractures are noted. XR/XR chest 1V portable [id number] IMPRESSION: No evidence of acute pulmonary process.
--- NOTE | 2022-11-29 04:28 | ECG_ITS ---
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 Measurements Intervals [place] Rate: 67 P: 19 CA: 245 QRS: -3 QRSD: 75 T: 44 QT: 390 QTc: 412 Interpretive Statements SINUS RHYTHM WITH FIRST DEGREE AV BLOCK Compared to ECG 05/21/2022 16:02:29 First degree AV block now present Atrial-paced complex(es) or rhythm no longer present Electronically Signed On 11-30-2022 10:58:42 CDT by Cathie Louis M.D. [id number]
[2022-11-29 04:57] LABS: Basophils % 0.4 %; Eosinophils % 0.9 %; Hematocrit 39.2 % (37-53); Lymphocytes # 0.4 10^3/uL (0.8-4.8); Lymphocytes % 9.4 %; Mean Corpuscular HGB Conc 33.4 g/dL (30-55); Mean Corpuscular Hemoglobin 30.7 pg (27-33); Mean Corpuscular Volume 91.8 fl (82-101); Mean Platelet Volume 10.6 fL (7.4-10.4); Monocytes # 0.3 10^3/uL (0.2-0.9); Monocytes % 7.2 %; Neutrophils # 3.73 10^3/uL (1.8-7.7); Neutrophils % 81.7 %; Nucleated Red Blood Cells % 0 %; Platelet Count 97 10^3/cmm (157-399); Red Blood Count 4.27 10^6/uL (3.85-5.65); Red Cell Distribution Width 14.7 % (12.1-15.1); White Blood Count 4.57 10^3/uL (3.29-11.43)
[2022-11-29 05:00] VITALS: BP 126/65; PULSE 71; RESP 16; O2SAT 95
[2022-11-29] MEDS: lidocaine-epi 1% 20 mL INJ INJECTION (05:03)
[2022-11-29 05:13] LABS: Lactic Sepsis W/Reflex 1.4 mmol/L (0.5-2.2)
[2022-11-29 05:14] LABS: Alanine Aminotransferase 18 U/L (0-41); Alkaline Phosphatase 92 U/L (40-130); Anion Gap 12.1 (5-19); Aspartate Amino Transferase 16 U/L (0-40); Blood Urea Nitrogen 12 mg/dL (8-23); Carbon Dioxide 27 mmol/L (22-29); Chloride 103 mmol/L (98-107); Globulin 3.1 g/dL (1.3-4.6); Glucose 173 mg/dL (65-115); Magnesium 1.9 mg/dL (1.7-2.3); Osmolality Calculated 290 mOsm/kg (285-295); Potassium 4.1 mmol/L (3.5-5.1); Sodium 138 mmol/L (136-145); Total Bilirubin 3.2 mg/dL (0.15-1.2); Total Protein 7.1 g/dL (6.6-8.7)
[2022-11-29 05:20] LABS: SARS Covid-2 Antigen negative (Negative)
[2022-11-29 05:27] LABS: Add Urine Microscopic? NO; Charge for UA Resulting for Rev
[2022-11-29 05:28] LABS: Protein Urine Neg (Negative); Specific Gravity, Urine 1.015 (1.005-1.030); Urine Appearance Clear (CLEAR); Urine Color Yellow (Yellow); pH Urine 5 (5-7)
[2022-11-29 05:29] LABS: Bilirubin Urine Neg (Negative); Blood Urine Neg (Negative); Glucose Urine UA 1+ (Normal); Ketones Urine 1+ (Negative); Leukocyte Esterase Urine Negative (Negative); Nitrate Urine Negative (Negative); Urobilinogen Urine Neg (Negative)
--- NOTE | 2022-11-29 05:59 | W.ED.FALL ---
HPI - Fall General: Chief Complaint: Fall Stated Complaint: FELL Time Seen by Provider: 11/29/22 04:13 History of Present Illness: 82-year-old male who awoke this morning and got dizzy as he awoke. He evidently fell into his gun cabinet, breaking the glass. He has lacerations and injuries to his left shoulder, left arm, and left chest wall. He did not hit his head. He complains also, that a day prior, he began to get somewhat ill. He has felt feverish on and off. He has had a sore throat and cough. Some congestion as well as mild shortness of breath. He believes this is responsible for his dizziness. Associated symptoms-after fall: Denies abdominal pain or chest pain Review of Systems Const: Reports: fever(s) and body aches Eyes: Denies: change in vision ENMT: Reports: throat pain and odynophagia Card: Denies: chest pain Resp: Reports: non-productive cough; Denies: dyspnea GI: Denies: abdominal pain, nausea, vomiting or diarrhea : Denies: flank pain [facility] ED PFSH: Medical History Arteriosclerotic coronary artery disease Atrial fibrillation Coronary artery disease HTN (hypertension) Hyperlipidemia PATTI (obstructive sleep apnea) Salmonella enteritis Surgical History S/P cholecystectomy (2007) S/P PTCA (percutaneous transluminal coronary angioplasty) (2013) Family History Other Cancer Social History Smoking and tobacco/nicotine status: tobacco/nicotine user, details unknown cigarettes Packs smoked per day: 1 Years cigarettes smoked: 5 [ Other cigarette details: smoked 50 years prior] and smokeless tobacco Smokeless tobacco user: chewing tobacco Smokeless tobacco details: still using chewing tobacco Quit status (tobacco/nicotine): has quit using Former quit date comment: Smoked x 5 to 6 years Alcohol intake: never Substance/Drug Use: never Lives independently: Yes Household members: spouse and children Marital status: Physical Exam Const: GENERAL APPEARANCE: cooperative, comfortable and frail appearing (midly); not ill appearing NUTRITIONAL APPEARANCE: obese HENMT: COMMON NORMALS: normocephalic, atraumatic and Normal external nose present HEAD & SCALP: normocephalic and atraumatic FACE & SINUS: normal facial exam NOSE: Normal external nose present Eye: COMMON NORMALS: Equal, round and reactive pupils present and EOMs intact bilaterally PUPIL: Yes Equal, round and reactive pupils present Chest: CHEST: Yes Symmetrical chest wall rise OTHER: Two lacerations present over the left lateral chest wall. One deep, measuring 4 centimeters. Probing with sterile finger reveals no thoracic cavity defect. Bleeding is controlled. The second is a superficial laceration measuring 5 centimeters. Bleeding is controlled. Resp: COMMON NORMALS: normal respiratory effort, No retractions, No use of accessory muscles and clear to auscultation bilaterally AUSCULTATION: clear to auscultation bilaterally Cardio: COMMON NORMALS: regular rate and regular rhythm RATE: regular rate RHYTHM: regular rhythm GI: COMMON NORMALS: Normal to inspection, nondistended, normoactive bowel sounds present Extremity: NARRATIVE EXTREMITY EXAM: Examination of the left upper extremity reveals a 7 centimeter laceration over the posterior lateral aspect of the humerus. Bleeding is controlled. No Bony tenderness. Neuro: ROM COMA SCALE: document GCS findings Rom coma scale eye opening: Spontaneous [place] coma scale verbal response: Orientated [place] coma scale motor response: Obey commands [place] coma scale total score: 15 SPEECH: speech normal MOTOR EXAM: Normal motor muscle tone present throughout Psych: COMMON NORMALS: mental status grossly normal Skin: NARRATIVE SKIN EXAM: see above Procedures Laceration Laceration 1: Site: upper extremity Side (If applicable): left Size (cm): 7 Description: linear Depth: simple, single layer Local Anesthetic: lidocaine 1% and with epi Amount of anesthesia used (mL): 8 Pre-repair: wound explored, irrigated extensively and deep structures intact Skin layer closed with: other (latanya) Number of sutures: 8 Laceration 2: Site: chest Side (If applicable): left Size (cm): 3 Description: linear Depth: simple, single layer Local Anesthetic: lidocaine 1% and with epi Amount of anesthesia used (mL): 3 Pre-repair: wound explored, irrigated extensively and deep structures intact Skin layer closed with: other (latanya) Number of sutures: 3 Laceration 3: Site: chest Side (If applicable): left Size (cm): 5 Description: linear Depth: simple, single layer Local Anesthetic: lidocaine 1% and with epi Pre-repair: wound explored, irrigated extensively and deep structures intact Skin layer closed with: other (latanya) Number of sutures: 5 Course Vital Signs: Vital signs: Vital Signs Temperature 98 F 11/29/22 03:43 Pulse Rate 65 11/29/22 06:00 Respiratory Rate 16 11/29/22 06:00 Blood Pressure 148/67 11/29/22 06:00 Pulse Oximetry 94 11/29/22 06:00 MDM - Fall Medical Decision Making Platelet count is 97, laboratory including COVID-19 antigen is otherwise not remarkable. Head CT is pending, although preliminary read is negative. Chest x-ray is negative as well.Lacerations were repaired using latanya. He tolerated well. CT negative. he'll be allowed home Lab Data 11/29/22 04:45 11/29/22 04:45 Radiology Impressions Chest X-Ray 11/29/22 04:26 IMPRESSION: No evidence of acute pulmonary process. Head CT 11/29/22 04:26 IMPRESSION: [id number] small vessel disease. No evidence of acute intracranial process. Humerus X-Ray 11/29/22 04:26 IMPRESSION: No acute findings. Laboratory Results WBC 4.57 10^3/uL (3.29-11.43) 11/29/22 04:45 RBC 4.27 10^6/uL (3.85-5.65) 11/29/22 04:45 Hgb 13.10 g/dL (11.27-16.99) 11/29/22 04:45 Hct 39.2 % (37-53) 11/29/22 04:45 MCV 91.8 fl (82-101) 11/29/22 04:45 MCH 30.7 pg (27-33) 11/29/22 04:45 MCHC 33.4 g/dL (30-55) 11/29/22 04:45 RDW 14.7 % (12.1-15.1) 11/29/22 04:45 Plt Count 97 10^3/cmm (157-399) L 11/29/22 04:45 MPV 10.6 fL (7.4-10.4) H 11/29/22 04:45 Neut % (Auto) 81.7 % 11/29/22 04:45 Lymph % (Auto) 9.4 % 11/29/22 04:45 [place] % (Auto) 7.2 % 11/29/22 04:45 Eos % (Auto) 0.9 % 11/29/22 04:45 Baso % (Auto) 0.4 % 11/29/22 04:45 Neut # (Auto) 3.73 10^3/uL (1.8-7.7) 11/29/22 04:45 Lymph # (Auto) 0.4 10^3/uL (0.8-4.8) L 11/29/22 04:45 [place] # (Auto) 0.3 10^3/uL (0.2-0.9) 11/29/22 04:45 Eos # (Auto) 0.0 10^3/uL (0.0-0.8) 11/29/22 04:45 Baso # (Auto) 0.0 10^3/uL (0.0-0.1) 11/29/22 04:45 Nucleated RBC % (auto) 0 % 11/29/22 04:45 Nucleated RBCs # 0.0 /100WBC 11/29/22 04:45 Sodium 138 mmol/L (136-145) 11/29/22 04:45 Potassium 4.1 mmol/L (3.5-5.1) 11/29/22 04:45 Chloride 103 mmol/L (98-107) 11/29/22 04:45 Carbon Dioxide 27 mmol/L (22-29) 11/29/22 04:45 Anion Gap 12.1 (5-19) 11/29/22 04:45 BUN 12 mg/dL (8-23) 11/29/22 04:45 Creatinine 1.0 mg/dL (0.7-1.2) 11/29/22 04:45 GFR Calculation Not Reportable 11/29/22 04:45 Glucose 173 mg/dL (65-115) H 11/29/22 04:45 Calculated Osmolality 290 mOsm/kg (285-295) 11/29/22 04:45 Lactic Acid 1.4 mmol/L (0.5-2.2) 11/29/22 04:45 Calcium 9.0 mg/dL (8.5-10.5) 11/29/22 04:45 Magnesium 1.9 mg/dL (1.7-2.3) 11/29/22 04:45 Total Bilirubin 3.2 mg/dL (0.15-1.2) H 11/29/22 04:45 AST 16 U/L (0-40) 11/29/22 04:45 ALT 18 U/L (0-41) 11/29/22 04:45 Alkaline Phosphatase 92 U/L (40-130) 11/29/22 04:45 Total Protein 7.1 g/dL (6.6-8.7) 11/29/22 04:45 Albumin 4.0 g/dL (3.5-5.2) 11/29/22 04:45 Globulin 3.1 g/dL (1.3-4.6) 11/29/22 04:45 Urine Color Yellow (Yellow) 11/29/22 05:14 Urine Appearance Clear (CLEAR) 11/29/22 05:14 Urine pH 5 (5-7) 11/29/22 05:14 Ur Specific [place] 1.015 (1.005-1.030) 11/29/22 05:14 Urine Protein Neg (Negative) 11/29/22 05:14 Urine Glucose (UA) 1+ (Normal) H 11/29/22 05:14 Urine Ketones 1+ (Negative) H 11/29/22 05:14 Urine Blood Neg (Negative) 11/29/22 05:14 Urine Nitrate Negative (Negative) 11/29/22 05:14 Urine Bilirubin Neg (Negative) 11/29/22 05:14 Urine Urobilinogen Neg mg/dL (Negative) 11/29/22 05:14 Ur Leukocyte Esterase Negative (Negative) 11/29/22 05:14 SARS-CoV-2 Ag (Rapid) negative (Negative) 11/29/22 04:39 All radiology interpretation(s) finalized by discharge Discharge Plan Discharge Patient Disposition: Home Clinical Impression: Laceration of left upper arm, Laceration of chest wall Condition: Stable Prescriptions: New cephalexin 500 mg capsule 500 mg PO Q6H 7 Days Qty: 28 0RF No Action magnesium oxide 400 mg magnesium capsule 400 mg PO BID aspirin [Adult Low Dose Aspirin] 81 mg tablet,delayed release (DR/EC) 81 mg PO QAM Hold Instructions: Adverse Reaction cetirizine [Zyrtec] 10 mg tablet 10 mg PO QAM tamsulosin 0.4 mg capsule 0.4 mg PO BEDTIME Qty: 90 3RF sotalol 120 mg tablet See Rx Instructions .ROUTE .COMPLEX Qty: 180 3RF Dose Instruction: TAKE 1 TABLET BY MOUTH TWICE A DAY Rx Instructions: TAKE 1 TABLET BY MOUTH TWICE A DAY isosorbide mononitrate 30 mg tablet extended release 24 hr See Rx Instructions .ROUTE .COMPLEX Qty: 180 10RF Dose Instruction: TAKE 2 TABLETS BY MOUTH EVERY DAY Rx Instructions: TAKE 2 TABLETS BY MOUTH EVERY DAY alprazolam 0.25 mg tablet 0.25 mg PO BID PRN (Reason: anxiety) Qty: 20 2RF nitroglycerin [Nitrostat] 0.4 mg tablet, sublingual 0.4 mg SUBLINGUAL Q5M PRN (Reason: Chest Pain) Qty: 30 3RF montelukast 10 mg tablet See Rx Instructions .ROUTE .COMPLEX Qty: 90 3RF Dose Instruction: TAKE 1 TABLET BY MOUTH EVERY DAY Rx Instructions: TAKE 1 TABLET BY MOUTH EVERY DAY ferrous sulfate [iron] 325 mg (65 mg iron) Tablet 325 mg PO DAILY atorvastatin 20 mg tablet 20 mg PO QAM clopidogrel 75 mg tablet 75 mg PO QAM amlodipine 5 mg tablet 5 mg PO BEDTIME pantoprazole 40 mg tablet,delayed release (DR/EC) 40 mg PO BID Discharge Orders: Discharge ED (Routine); Ordered 11/29/22 Ordered By: Jamari Mendoza Referrals: Kam Regan MD [Primary Care Provider] - 7-10 days Patient Instructions: Laceration (ED), Opioid Safety, Pain Management Activity Restrictions/Additional Instructions: Return for worsening pain, shortness of breath, mental status changes, other concerning symptoms. Latanya should come out in 7 to 10 days. See your doctor for this. Coding Level of Care Code ED Rate And Cost Analyst for Trent Lanza
[2022-11-29 06:00] VITALS: BP 148/67; PULSE 65; RESP 16; O2SAT 94
== END 2022-11-29 08:51 | disposition home or self-care (01) ==
PROVIDERS: Emergency Provider Emergency Medicine; PCP Family Medicine
DX: S21.112A Laceration without foreign body of left front wall of thorax without penetration into thoracic cavity, initial encounter (principal); S41.112A Laceration without foreign body of left upper arm, initial encounter; I25.10 Atherosclerotic heart disease of native coronary artery without angina pectoris; I10 Essential (primary) hypertension; E78.5 Hyperlipidemia, unspecified; F17.210 Nicotine dependence, cigarettes, uncomplicated; Z11.52 Encounter for screening for COVID-19; Z79.02 Long term (current) use of antithrombotics/antiplatelets; Z79.82 Long term (current) use of aspirin; W01.110A Fall on same level from slipping, tripping and stumbling with subsequent striking against sharp glass, initial encounter
CPT/HCPCS: 12005; 36415; 70450; 71045; 73060; 80053; 81003; 83605; 83735; 85025; 87040; 87426; 93005; 99285

== ENCOUNTER 2023-01-22 13:35 | Oncology outpatient (recurring) (ONCR) | payer MEDICARE, OTHER, SELFPAY ==
[2023-01-22 13:45] VITALS: BP 131/67; PULSE 70; RESP 16; TEMP 37.1; O2SAT 95
[2023-01-22 13:55] LABS: Basophils % 1.2 %; Eosinophils # 0.1 10^3/uL (0.0-0.8); Eosinophils % 2.8 %; Hematocrit 38.8 % (37-53); Lymphocytes # 0.6 10^3/uL (0.8-4.8); Mean Corpuscular HGB Conc 34.3 g/dL (30-55); Mean Corpuscular Hemoglobin 30.7 pg (27-33); Mean Corpuscular Volume 89.6 fl (82-101); Mean Platelet Volume 9.8 fL (7.4-10.4); Monocytes # 0.2 10^3/uL (0.2-0.9); Monocytes % 9.4 %; Neutrophils # 1.63 10^3/uL (1.8-7.7); Neutrophils % 64.2 %; Nucleated Red Blood Cells % 0 %; Platelet Count 103 10^3/cmm (157-399); Red Blood Count 4.33 10^6/uL (3.85-5.65); Red Cell Distribution Width 14.5 % (12.1-15.1); White Blood Count 2.54 10^3/uL (3.29-11.43)
[2023-01-22 14:13] LABS: Alanine Aminotransferase 19 U/L (0-41); Albumin Level 4.2 g/dL (3.5-5.2); Alkaline Phosphatase 95 U/L (40-130); Anion Gap 13.1 (5-19); Aspartate Amino Transferase 20 U/L (0-40); Blood Urea Nitrogen 20 mg/dL (8-23); Calcium 9.1 mg/dL (8.5-10.5); Carbon Dioxide 25 mmol/L (22-29); Chloride 104 mmol/L (98-107); Globulin 3.3 g/dL (1.3-4.6); Glucose 152 mg/dL (65-115); Lactate Dehydrogenase 181 U/L (135-225); Osmolality Calculated 292 mOsm/kg (285-295); Potassium 4.1 mmol/L (3.5-5.1); Sodium 138 mmol/L (136-145); Total Bilirubin 2.3 mg/dL (0.15-1.2); Total Protein 7.5 g/dL (6.6-8.7)
== END 2023-02-08 23:59 | disposition home or self-care (01) ==
PROVIDERS: PCP Family Medicine; Visit Provider Internal Medicine Medical Oncology
DX: D61.818 Other pancytopenia (principal); D64.9 Anemia, unspecified; D69.6 Thrombocytopenia, unspecified; D72.810 Lymphocytopenia; R16.1 Splenomegaly, not elsewhere classified; M85.89 Other specified disorders of bone density and structure, multiple sites; R91.1 Solitary pulmonary nodule; Z79.899 Other long term (current) drug therapy; Z87.891 Personal history of nicotine dependence
CPT/HCPCS: 36415; 80053; 83615; 85025; 99214

== ENCOUNTER → 2023-02-17 12:10 | Outpatient (BNVA) | payer MEDICARE, OTHER, SELFPAY | PROVIDERS: PCP Family Medicine; Visit Provider Family Medicine | DX: I10 Essential (primary) hypertension (principal); I25.10 Atherosclerotic heart disease of native coronary artery without angina pectoris; I48.91 Unspecified atrial fibrillation; E78.5 Hyperlipidemia, unspecified; R73.9 Hyperglycemia, unspecified; D61.818 Other pancytopenia; D69.6 Thrombocytopenia, unspecified; D64.9 Anemia, unspecified; Z79.899 Other long term (current) drug therapy | CPT/HCPCS: 80048; 80053; 80061; 83036; 85025 ==

== ENCOUNTER → 2023-03-10 08:10 | Outpatient (BNVA) | payer MEDICARE, OTHER, SELFPAY | PROVIDERS: PCP Family Medicine; Visit Provider Nurse Practitioner Family | DX: Z85.828 Personal history of other malignant neoplasm of skin (principal); L57.0 Actinic keratosis; L91.8 Other hypertrophic disorders of the skin; L82.1 Other seborrheic keratosis; L57.8 Other skin changes due to chronic exposure to nonionizing radiation | CPT/HCPCS: 11200; 17000; 17110; 99213 ==

== ENCOUNTER 2023-03-23 10:24 | Emergency (ER) | payer MEDICARE, OTHER, SELFPAY ==
[2023-03-23] VITALS (10 sets, daily range): BP systolic 118–147; BP diastolic 59–69; PULSE 60–77; RESP 16–34; TEMP 37.4–38.8; O2SAT 91–96; BMI 27.3
--- NOTE | 2023-03-23 10:26 | XR_ITS ---
WS: [id number] PORTABLE CHEST HISTORY: dyspnea/cough COMPARISON: 11/29/2022 Lungs are clear and well expanded. No pleural effusion or pneumothorax. Cardiac size: Normal. Mediastinum/Aorta: Mildly ectatic aorta with plaque. Remote posterior RIGHT rib fracture, 7th. IMPRESSION: Mild atherosclerosis and ectasia thoracic aorta. No pneumonia.
--- NOTE | 2023-03-23 10:27 | ECG_ITS ---
[facility] Test Date: 2023-03-23 Pat Name: Ky Najera Department: Room: Gender: Male Decor[address] [employer] Building: : 1940 Requested By: Jarod Montesinos Order Number: [id number] Renetta MD: Tariq Ny M.D. Measurements Intervals [place] Rate: 77 P: 108 [place]: 229 QRS: -22 QRSD: 82 T: 64 QT: 375 QTc: 425 Interpretive Statements SINUS RHYTHM WITH FIRST DEGREE AV BLOCK BORDERLINE LEFT AXIS DEVIATION [QRS AXIS < -20] Compared to ECG 11/29/2022 04:39:27 No significant changes Electronically Signed On 03-23-2023 14:18:58 ELECTRIC DETECTOR OPERATOR by Tariq Ny M.D. [id number]
--- NOTE | 2023-03-23 10:40 | ED_ITS ---
HPI - Weakness 2 General: Chief complaint: Weakness Stated complaint: weakness Time Seen by Provider: 03/23/23 10:26 Source: patient Mode of arrival: EMS History of Present Illness: 82-year-old male presents emergency room with generalized weakness abdominal pain and fever at home's been progressively worse over the last couple of days. Not had any chest pain or shortness of breath all the pain is epigastric right upper quadrant. Nauseous without vomiting. No diarrhea. MD Complaint: generalized weakness Associated symptoms: Denies chest pain, chills, dysuria or fever(s) Review of Systems 2 Const: Denies: fever(s) or chills Card: Denies: chest pain Resp: Denies: dyspnea GI: Denies: abdominal pain : Denies: dysuria, urinary frequency or urinary urgency Musc: Denies: neck pain or back pain Skin/Breast: Denies: rash PFSH ED 2 PFSH: Medical History Coronary artery disease Salmonella enteritis Hyperlipidemia PATTI (obstructive sleep apnea) Atrial fibrillation Arteriosclerotic coronary artery disease HTN (hypertension) Surgical History S/P cholecystectomy (2007) S/P PTCA (percutaneous transluminal coronary angioplasty) (2013) Family History Other Cancer Social History Smoking and tobacco/nicotine status: tobacco/nicotine user, details unknown cigarettes Packs smoked per day: 1 Years cigarettes smoked: 5 [ Other cigarette details: smoked 50 years prior] and smokeless tobacco Smokeless tobacco user: chewing tobacco Smokeless tobacco details: still using chewing tobacco Quit status (tobacco/nicotine): has quit using Former quit date comment: Smoked x 5 to 6 years Alcohol intake: never Substance/Drug Use: never Lives independently: Yes Household members: spouse and children Marital status: Physical Exam 2 Const: COMMON NORMALS: no acute distress GENERAL APPEARANCE: cooperative and comfortable ORIENTATION/CONSCIOUSNESS: Yes awake, Yes oriented to person, Yes oriented to place and Yes oriented to time HENMT: COMMON NORMALS: normocephalic, atraumatic and hearing grossly normal bilaterally HEAD & SCALP: normocephalic and atraumatic Resp: COMMON NORMALS: normal respiratory effort, No retractions, No use of accessory muscles and clear to auscultation bilaterally AUSCULTATION: clear to auscultation bilaterally Cardio: COMMON NORMALS: regular rate, regular rhythm and No murmurs present (Cardio) RATE: regular rate RHYTHM: regular rhythm GI: COMMON NORMALS: Soft to palpation and No hepatosplenomegaly present A USCULTATION: Yes normoactive bowel sounds PALPATION: Yes Soft to palpation, No Tenderness to palpation present (GI), No Guarding due to palpation present (GI) and Yes No hepatosplenomegaly present Extremity: COMMON NORMALS: normal to inspection, capillary refill normal, no clubbing, cyanosis or edema, no calf tenderness and no pedal edema Neuro: SENSORIUM/ORIENTATION: Yes oriented to person, Yes oriented to place and Yes oriented to time Skin: COMMON NORMALS: no rashes or lesions noted GENERAL SKIN EXAM: no rashes or lesions noted Course 2 Vital Signs: Vital signs: Vital Signs Temperature 98.1 F 03/24/23 18:00 Pulse Rate 58 L 03/25/23 00:09 Respiratory Rate 18 03/25/23 00:09 Blood Pressure 114/56 03/25/23 00:09 Pulse Oximetry 93 03/25/23 00:09 Oxygen Delivery Me thod Room Air 03/24/23 11:00 MDM - Weakness Medical Decision Making Suspicious patient has a standing cholangitis at this point based on his laboratory results. May be very early in the course is not a lot of convincing radiographic findings at this time. He did have a pretty significant fever when he arrived playing any other source for the fever. He is allergic to penicillin he has been started on Cipro and Flagyl for possibility of a setting cholangitis cultures have been done as well. His first preference is to go to [facility] in [place] they have excepted the patient but they do not know if they will have a bed today it may be tomorrow before a bed is available. We did call [facility] as an alternative they are also full and are not taking waiting list patients we have to call back tomorrow to reevaluate for possible transfer. At this point we will continue treating the emergency room consult hospitalist for assistance with medical management until a bed becomes available Medical Records I reviewed the patient's medical records. Lab Data I reviewed the patient's lab results. 03/24/23 06:52 03/24/23 06:52 Laboratory Results WBC 3.17 10^3/uL (3.29-11.43) L 03/24/23 06:52 RBC 4.17 10^6/uL (3.85-5.65) 03/24/23 06:52 Hgb 12.80 g/dL (11.27-16.99) 03/24/23 06:52 Hct 37.9 % (37-53) 03/24/23 06:52 MCV 90.9 fl (82-101) 03/24/23 06:52 MCH 30.7 pg (27-33) 03/24/23 06:52 MCHC 33.8 g/dL (30-55) 03/24/23 06:52 RDW 14.8 % (12.1-15.1) 03/24/23 06:52 Plt Count 86 10^3/cmm (157-399) L 03/24/23 06:52 MPV 9.9 fL (7.4-10.4) 03/24/23 06:52 Neut % (Auto) 78.9 % 03/24/23 06:52 Lymph % (Auto) 11.4 % 03/24/23 06:52 [place] % (Auto) 7.9 % 03/24/23 06:52 Eos % (Auto) 0.6 % 03/24/23 06:52 Baso % (Auto) 0.6 % 03/24/23 06:52 Neut # (Auto) 2.50 10^3/uL (1.8-7.7) 03/24/23 06:52 Lymph # (Auto) 0.4 10^3/uL (0.8-4.8) L 03/24/23 06:52 [place] # (Auto) 0.3 10^3/uL (0.2-0.9) 03/24/23 06:52 Eos # (Auto) 0.0 10^3/uL (0.0-0.8) 03/24/23 06:52 Baso # (Auto) 0.0 10^3/uL (0.0-0.1) 03/24/23 06:52 Nucleated RBC % (auto) 0 % 03/24/23 06:52 Nucleated RBCs # 0.0 /100WBC 03/24/23 06:52 PT 15.00 SECONDS (12.1-14.9) H 03/24/23 06:52 INR 1.14 (0.8-1.2) 03/24/23 06:52 APTT 44.6 SECONDS (23.9-36.7) H 03/24/23 06:52 Sodium 137 mmol/L (136-145) 03/24/23 06:52 Potassium 3.7 mmol/L (3.5-5.1) 03/24/23 06:52 Chloride 106 mmol/L (98-107) 03/24/23 06:52 Carbon Dioxide 23 mmol/L (22-29) 03/24/23 06:52 Anion Gap 11.7 (5-19) 03/24/23 06:52 BUN 11 mg/dL (8-23) 03/24/23 06:52 Creatinine 1.0 mg/dL (0.7-1.2) 03/24/23 06:52 GFR Calculation Not Reportable 03/24/23 06:52 Glucose 112 mg/dL (65-115) 03/24/23 06:52 Calculated Osmolality 284 mOsm/kg (285-295) L 03/24/23 06:52 Lactic Acid 4.1 mmol/L (0.5-2.2) H* 03/23/23 18:00 Lactic Acid (Sepsis) 2.2 mmol/L (0.5-2.2) 03/23/23 21:23 Calcium 8.0 mg/dL (8.5-10.5) L 03/24/23 06:52 Phosphorus 2.5 mg/dL (2.5-4.5) 03/23/23 10:40 Magnesium 1.8 mg/dL (1.7-2.3) 03/24/23 03:08 Total Bilirubin 3.4 mg/dL (0.15-1.2) H 03/24/23 06:52 Direct Bilirubin 1.10 mg/dL (0.00-0.30) H 03/23/23 10:40 GGT 571 U/L (8-61) H 03/23/23 10:40 AST 83 U/L (0-40) H 03/24/23 06:52 ALT 147 U/L (0-41) H 03/24/23 06:52 Alkaline Phosphatase 157 U/L (40-130) H 03/24/23 06:52 Troponin T Baseline 10 ng/L (0-15) 03/23/23 10:40 Troponin T 120 Minute 8.69 ng/L (0-15) 03/23/23 12:41 Delta Troponin T -1.31 ABS# (0-10) L 03/23/23 12:41 Troponin T Hi Sens 6Hr 11.14 ng/L (0-15) 03/23/23 16:17 Troponin T Hi Sens 6Hr Delta 1.14 ng/L (0-12) 03/23/23 16:17 C-Reactive Protein 9.9 mg/L (0.0-4.9) H 03/23/23 10:40 Total Protein 6.6 g/dL (6.6-8.7) 03/24/23 06:52 Albumin 3.6 g/dL (3.5-5.2) 03/24/23 06:52 Globulin 3.0 g/dL (1.3-4.6) 03/24/23 06:52 Triglycerides 166 mg/dL (0-150) H 03/23/23 10:40 Cholesterol 113 mg/dL (0-200) 03/23/23 10:40 LDL Cholesterol, Calc 53 mg/dL (50-129) 03/23/23 10:40 HDL Cholesterol 27 mg/dL (60-100) L 03/23/23 10:40 LDL/HDL Ratio 1.96 RATIO (0.00-3.22) 03/23/23 10:40 Cholesterol/HDL Ratio 4.19 mg/dL (1.0-5.00) 03/23/23 10:40 Lipase 38 U/L (13-60) 03/24/23 06:52 Vitamin B12 702 pg/mL (232-1245) 03/23/23 10:40 Urine Color [place] (Yellow) 03/23/23 11:19 Urine Appearance Clear (CLEAR) 03/23/23 11:19 Urine pH 5 (5-7) 03/23/23 11:19 Ur Specific [place] 1.015 (1.005-1.030) 03/23/23 11:19 Urine Protein Neg (Negative) 03/23/23 11:19 Urine Glucose (UA) Norm (Normal) 03/23/23 11:19 Urine Ketones Negative (Negative) 03/23/23 11:19 Urine Blood Neg (Negative) 03/23/23 11:19 Urine Nitrate Negative (Negative) 03/23/23 11:19 Urine Bilirubin 1+ (Negative) H 03/23/23 11:19 Urine Urobilinogen 1 mg/dL (Negative) H 03/23/23 11:19 Ur Leukocyte Esterase Negative (Negative) 03/23/23 11:19 Anti-Smooth Muscle Ab Negative (NEGATIVE) 03/23/23 10:40 Coronavirus 229E (PCR) Not detected (NOT DETECT) 03/23/23 11:19 Hepatitis A IgM Ab Non-reactive (Nonreactive) 03/23/23 10:40 Hep Bs Antigen Non-reactive (Nonreactive) 03/23/23 10:40 Hep Bs Antibody < 3.5 (11.5-1000) L 03/23/23 10:40 Hep B Core Total Ab Non-reactive (Nonreactive) 03/23/23 10:40 Hepatitis C Antibody Non-reactive (Nonreactive) 03/23/23 10:40 Influenza Type A Ag Cancelled 03/23/23 11:19 Influenza Type B Ag Cancelled 03/23/23 11:19 SARS-CoV-2 (PCR) Not detected (NOT DETECT) 03/23/23 11:19 Mitochondrial DNA Scrn Negative (NEGATIVE) 03/23/23 10:40 All radiology interpretation(s) finalized by discharge Discharge Plan Discharge Patient Disposition: Xfer Short-Term Hosp Clinical Impression: Ascending cholangitis, Thrombocytopenia Condition: Stable Referrals: Kam Regan MD [Primary Care Provider] - Coding Level of Care Code ED Bag Machine Tender for Chg Myla
[2023-03-23 11:07] LABS: Basophils % 0.2 %; Hematocrit 42.3 % (37-53); Lymphocytes # 0.3 10^3/uL (0.8-4.8); Lymphocytes % 6.7 %; Mean Corpuscular HGB Conc 34.3 g/dL (30-55); Mean Corpuscular Hemoglobin 30.7 pg (27-33); Mean Corpuscular Volume 89.6 fl (82-101); Mean Platelet Volume 10.2 fL (7.4-10.4); Monocytes # 0.3 10^3/uL (0.2-0.9); Monocytes % 7.6 %; Neutrophils # 3.71 10^3/uL (1.8-7.7); Nucleated Red Blood Cells % 0 %; Platelet Count 97 10^3/cmm (157-399); Red Blood Count 4.72 10^6/uL (3.85-5.65); Red Cell Distribution Width 14.6 % (12.1-15.1); White Blood Count 4.36 10^3/uL (3.29-11.43)
[2023-03-23] MEDS: sodium chloride 0.9% 1,000 ML 999 ML IV ×2 (11:14→18:56)
[2023-03-23 11:22] LABS: Alanine Aminotransferase 275 U/L (0-41); Albumin Level 4.3 g/dL (3.5-5.2); Alkaline Phosphatase 235 U/L (40-130); Anion Gap 15.8 (5-19); Aspartate Amino Transferase 225 U/L (0-40); Blood Urea Nitrogen 15 mg/dL (8-23); Calcium 8.8 mg/dL (8.5-10.5); Carbon Dioxide 24 mmol/L (22-29); Chloride 97 mmol/L (98-107); Creatinine Clr Calc Pharmacy 53.9713; Globulin 3.7 g/dL (1.3-4.6); Glucose 118 mg/dL (65-115); Osmolality Calculated 278 mOsm/kg (285-295); Potassium 3.8 mmol/L (3.5-5.1); Sodium 133 mmol/L (136-145); Total Bilirubin 5.4 mg/dL (0.15-1.2)
[2023-03-23 11:25] LABS: Lactic Sepsis W/Reflex 1.6 mmol/L (0.5-2.2)
[2023-03-23 11:25] LABS: Add Urine Microscopic? NO; Charge for UA Resulting for Rev; Urine Appearance Clear (CLEAR); Urine Color Amber (Yellow)
[2023-03-23 11:26] LABS: Bilirubin Urine 1+ (Negative); Blood Urine Neg (Negative); Glucose Urine UA Norm (Normal); Ketones Urine Negative (Negative); Leukocyte Esterase Urine Negative (Negative); Nitrate Urine Negative (Negative); Protein Urine Neg (Negative); Specific Gravity, Urine 1.015 (1.005-1.030); Urobilinogen Urine 1 mg/dL (Negative); pH Urine 5 (5-7)
[2023-03-23 11:26] LABS: Troponin(5th) Baseline 10 ng/L (0-15)
--- NOTE | 2023-03-23 12:04 | PC.PHAR ---
GUARDIAN LEFT RX LIST ON THE COUNTER AT HOME. SHE VERIFIED OTCS AND VITAMINS. PHONED PHARMACY FOR CURRENT RX MED LIST AND LAST FILL DATES. 03/23/23
--- NOTE | 2023-03-23 12:27 | ECG_ITS ---
[facility] Test Date: 2023-03-23 Pat Name: Ky Najera Department: Room: Gender: Male Guest Experience Specialist: : 1940 Requested By: Jarod Montesinos Order Number: [id number] Renetta MD: Tariq Ny M.D. Measurements Intervals [place] Rate: 72 P: 65 [place]: 247 QRS: -8 QRSD: 76 T: 53 QT: 383 QTc: 422 Interpretive Statements SINUS RHYTHM WITH FIRST DEGREE AV BLOCK Compared to ECG 03/23/2023 10:33:10 No significant changes Electronically Signed On 03-23-2023 14:20:58 CONTRACT DESIGNER by Tariq Ny M.D. [id number]
[2023-03-23] MEDS: acetaminophen 500 mg Tablet 1000 MG PO (12:35)
[2023-03-23 13:06] LABS: Adenovirus Not Detected (NOT DETECT); Chlamydia Pneumoniae Not Detected (NOT DETECT); Coronavirus 229E,HKU1,NL63,OC4 Not Detected (NOT DETECT); Human Metapneumovirus Not Detected (NOT DETECT); Human Rhinovirus/Enterovirus Not Detected (NOT DETECT); Influenza A Not Detected (NOT DETECT); Influenza A H1 Not Detected (NOT DETECT); Influenza A H1-2009 Not Detected (NOT DETECT); Influenza A H3 Not Detected (NOT DETECT); Influenza B Not Detected (NOT DETECT); Mycoplasma Pneumoniae Not Detected (NOT DETECT); Parainfluenza Virus Type 1 Not Detected (NOT DETECT); Parainfluenza Virus Type 2 Not Detected (NOT DETECT); Parainfluenza Virus Type 3 Not Detected (NOT DETECT); Parainfluenza Virus Type 4 Not Detected (NOT DETECT); Respiratory Syncytial Virus A Not Detected (NOT DETECT); Respiratory Syncytial Virus B Not Detected (NOT DETECT); SARS-COV-2 Not Detected (NOT DETECT)
[2023-03-23 13:16] LABS: Troponin 5 2HR 8.69 ng/L (0-15)
[2023-03-23 13:20] LABS: Troponin 5 2HR Delta -1.31 ABS# (0-10)
--- NOTE | 2023-03-23 13:45 | CT_ITS ---
WS: [id number] CT ABDOMEN AND PELVIS WITH CONTRAST HISTORY: abd pain TECHNIQUE: Imaging performed of the abdomen and pelvis with IV contrast. Single phase imaging of the abdomen. Coronal and sagittal reformats are submitted. All CT scans at [facility] use at [address] one of these dose optimization techniques: automated exposure control; mA and/or kV adjustment per patient size (includes targeted exams where dose is matched to clinical indication); or iterative re construction. IV CONTRAST: Omnipaque 350; 100 mL IV. Oral contrast: No DLP: 820.74 mGy.cm COMPARISON: 02/07/2022 Lower thorax: Slightly elevated LEFT hemidiaphragm. Heart is normal size. No hiatal hernia. Liver/biliary system: Normal size liver. There is mild dilatation of the common bile duct related to the cholecystectomy. Gallbladder: Prior cholecystectomy. Pancreas: Normal size pancreas and pancreatic duct. No adjacent inflammation. 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 Similar to 02/07/2022 and prior older exams. Adrenal glands: Normal. Right kidney: Normal. Left kidney: Normal. Aorta: Mild atherosclerosis with no aneurysm. Lymphadenopathy: None. Free fluid: None. GI tract: Unremarkable. Normal appendix. No obstruction. No diverticulitis. Abdominal wall: Unremarkable abdominal wall. No hernia. Pelvis: No free fluid or adenopathy within the pelvis. No significant prostate enlargement. No adenop athy. No ascites. Bones: Increase in the lumbar lordosis. No destructive bone lesions. IMPRESSION: 1. No acute abdominal or pelvic abnormalities. 2. No GI tract obstruction. No appendicitis or diverticulitis. 3. Spleen is enlarged but has been enlarged on multiple prior examinations over several years. 4. Negative urinary bladder. Mild distention.
[2023-03-23] MEDS: ciprofloxacin 400 MG/200 ML PREMIX 200 MG IV (14:00)
[2023-03-23 14:09] LABS: Lipase 61 U/L (13-60)
[2023-03-23] MEDS: iohexol 350 mg/mL 500 mL Btl (per mL) IV (14:15)
[2023-03-23] MEDS: metroNIDAZOLE IV 500 MG/100 ML PREMIX 100 MG IV (15:35)
--- NOTE | 2023-03-23 16:16 | PM.CONSULT ---
Providers/Reason For Consult Consulting Physician/Specialty*: Internal Medicine/Janene Batres MD Reason for Consult*: Medical management while awaiting transfer to higher level of care Requesting Physician: Dr. Jackson Primary Care Provider: Kam Regan MD History of Present Illness History of Present Illness Ky Najera is a 82 year old male with past medical history of hypertension hyperlipidemia, CAD, atrial fibrillation, obstructive sleep apnea, CAD underwent PCI with stent placement 2013, history of Salmonella enterocolitis, cholecystectomy moderately severe pancytopenia which is known for which she is also followed up with hematology as an outpatient presented to the hospital today for generalized weakness and fatigue. He says he also has been having epigastric pain at home but currently Denies abdominal pain, nausea vomiting diarrhea, constipation. is at bedside. ER course 128/63, 16, 77, one 1.9, saturating 94% on room air. Initial workup showed normal chest x-ray, normal UA, initial labs showed sodium 133, chloride 97, glucose 118, creatinine 1.1, total bilirubin 5.4, AST 225, ALT 275, alkaline phosphatase 235, delta troponin -1.3102 hours. Lipase 61. ET abdomen pelvis was ordered which showed no GI obstruction, appendicitis or diverticulitis. Spleen is enlarged but has been enlarged on multiple prior examinations over several years. ER doctor discussed imaging with radiologist on-call and after reviewing prior older examinations including 02/09/2018 the central hepatic bile ducts are slightly larger in size and more prominent than they have been on prior examinations. No cause for the obstruction or dilatation is evident by CT. Case was discussed with [facility] and patient has been accepted for further workup with gastroenterology. He will potentially need an ERCP. Patient was started on ciprofloxacin and Flagyl. He is allergic to penicillin. Internal medicine was consulted for medical management while patient is waiting transfer. Medications/Allergies Home Medications Medication Instructions Recorded Confirmed Last Taken Type aspirin 81 mg tablet,delayed 81 mg PO QAM 05/26/19 03/23/23 03/23/23 History release (Adult Low Dose Aspirin) cetirizine 10 mg tablet (Zyrtec) 10 mg PO QAM 05/26/19 03/23/23 03/23/23 History magnesium oxide 400 mg PO BID 05/26/19 03/23/23 03/23/23 History atorvastatin 20 mg tablet 20 mg PO QAM 0403/23/23 03/23/23 History clopidogrel 75 mg tablet 75 mg PO QAM 05/21/22 03/23/23 03/23/23 History ferrous sulfate 325 mg (65 mg 325 mg PO DAILY 05/21/22 03/23/23 03/23/23 History iron) tablet (iron) pantoprazole 40 mg tablet,delayed 40 mg PO BID 05/21/22 03/23/23 03/23/23 History release nitroglycerin 0.4 mg sublingual 0.4 mg sublingual Q5M PRN Chest 05/27/22 03/23/23 2 Weeks Ago Rx tablet (Nitrostat) Pain #30 tabs ~07/04/22 alprazolam 0.25 mg tablet 0.25 mg PO BID PRN anxiety #20 tabs 11/11/22 03/23/23 Unknown Rx tamsulosin 0.4 mg capsule 0.4 mg PO BEDTIME #90 caps 11/11/22 03/23/23 03/22/23 Rx amlodipine 5 mg tablet 5 mg PO DAILY 03/23/23 03/23/23 03/23/23 History isosorbide mononitrate 30 mg 60 mg PO DAILY 03/23/23 03/23/23 03/23/23 History tablet,extended release 24 hr montelukast 10 mg tablet 10 mg PO DAILY 03/23/23 03/23/23 03/23/23 History sotalol 120 mg tablet 120 mg PO BID 03/23/23 03/23/23 03/23/23 History Allergies Allergy/AdvReac Type Severity Reaction Status Date / Time amoxicillin [From Augmentin] Allergy Mild ADR-Diarrhe Verified 03/23/23 10:32 a clavulanic acid Allergy Mild ADR-Diarrhe Verified 03/23/23 10:32 [From Augmentin] a PFSH Acute PFSH: Medical History Coronary artery disease Salmonella enteritis Hyperlipidemia PATTI (obstructive sleep apnea) Atrial fibrillation Arteriosclerotic coronary artery disease HTN (hypertension) Surgical History S/P cholecystectomy (2007) S/P PTCA (percutaneous transluminal coronary angioplasty) (2013) Family History Other Cancer Social History Smoking and tobacco/nicotine status: tobacco/nicotine user, details unknown cigarettes Packs smoked per day: 1 Years cigarettes smoked: 5 [ Other cigarette details: smoked 50 years prior] and smokeless tobacco Smokeless tobacco user: chewing tobacco Smokeless tobacco details: still using chewing tobacco Quit status (tobacco/nicotine): has quit using Former quit date comment: Smoked x 5 to 6 years Alcohol intake: never Substance/Drug Use: never Lives independently: Yes Household members: spouse and children Marital status: Vitals/I&O/Wt Last Vital Signs Temp 99.4 F 03/23/23 15:41 Pulse 62 03/23/23 15:41 Resp 28 H 03/23/23 15:41 BP 143/65 03/23/23 15:41 Pulse Ox 94 03/23/23 15:41 O2 Del Method Room Air 03/23/23 10:27 03/23/23 03/23/23 03/23/23 06:59 14:59 22:59 Intake Total 1000 / 1000 200 / 1200 Balance 1000 / 1000 200 / 1200 Weight last 48 hrs Weight 81.647 kg Physical Exam Narrative: General: Alert oriented x3, patient seen laying in bed with daughter and grand daughter at bedside HEENT: Normocephalic, atraumatic, EOMI, breathing room air, anicteric sclera Cardio: Regular rate rhythm, normal S1-S2, no murmurs rubs gallops, Respiratory: Good bilateral air entry, no wheezes no rhonchi appreciated GI: Abdomen soft, tender to palpation epigastric region, nondistended, bowel sounds +, Behavior: Appropriate and cooperative Extremities: no edema, no cyanosis Data 03/23/23 10:40 03/23/23 10:40 Micro: Microbiology 03/23/23 11:53 Blood Culture - Preliminary Blood SPECIMEN COLLECTED 03/23/23 11:50 Blood Culture - Preliminary Blood SPECIMEN COLLECTED A&P Assessment and plan (1) HTN (hypertension): Qualifiers: Hypertension type: essential hypertension Qualified Code(s): I10 - Essential (primary) hypertension (2) Arteriosclerotic coronary artery disease: (3) Coronary artery disease: (4) Atrial fibrillation: Qualifiers: Atrial fibrillation type: persistent (not longstanding) Qualified Code(s): I48.19 - Other persistent atrial fibrillation (5) Hyperlipidemia: (6) Thrombocytopenia: (7) Ascending cholangitis: Plan #Possible ascending cholangitis #Fever secondary to above #Elevated total bilirubin #Elevated liver enzymes #History of CAD status post stent 2013 #Hypertension #Hyperlipidemia #History of chronic pancytopenia ? Patient does have a history of cholecystectomy. Elevated liver enzymes at this time along with elevated total bilirubin, elevated alkaline phosphatase. Evidence of dilated intrahepatic ducts on CT. ? Continue ciprofloxacin and Flagyl. ? Tylenol 650 every 6 hours as needed ? Check GGT, CRP. ? Check blood cultures ? Patient awaiting bed availability at [facility] for gastroenterology. He will likely require an ERCP for further diagnostic and therapeutic purposes ? Troponins negative x 2. Await 6-hour troponin ? Check vitamin B12 level ? UA normal. Chest x-ray normal. ? Check phosphorus level ? Check hepatitis panel ? Check antismooth muscle antibody, ALIYA ? Check antimitochondrial antibody ? NPO except meds - Continue sotalol, protonix, imdur, amlodipine - hold plavix, atorvastatin - EKG reviewed. no acute ischemia Full code DVT prophylaxis: Lovenox Consult Attestations Medical Necessity Statement: Awaiting transfer to [facility] Diagnoses Essential hypertension I10 Hypertension type: essential hypertension Arteriosclerotic coronary artery disease I25.10 Coronary artery disease I25.10 Persistent atrial fibrillation I48.19 Atrial fibrillation type: persistent (not longstanding) Hyperlipidemia E78.5 Thrombocytopenia D69.6 Ascending cholangitis K83.09
[2023-03-23 16:46] LABS: Troponin 5 6HR 11.14 ng/L (0-15); Troponin 5 6HR Delta 1.14 ng/L (0-12)
--- NOTE | 2023-03-23 16:51 | ECG_ITS ---
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 Measurements Intervals [place] Rate: 64 P: 61 CT: 254 QRS: -4 QRSD: 76 T: 54 QT: 412 QTc: 426 Interpretive Statements SINUS RHYTHM WITH FIRST DEGREE AV BLOCK Compared to ECG 03/23/2023 12:27:42 No significant changes Electronically Signed On 03-24-2023 16:33:24 MANAGER INVENTORY MANAGEMENT by Ganesh Agudelo M.D. [id number]
--- NOTE | 2023-03-23 17:34 | PC.NURSE ---
verbal order given by dr. langley to hold all ordered medications until pts is back with his medication list. in patient pharmacy was also contacted to retime cipro and flagyl d/t pt having doses previously today.
[2023-03-23 18:18] LABS: C Reactive Protein 9.9 mg/L (0.0-4.9); Chol HDL Ratio 4.19 mg/dL (1.0-5.00); Cholesterol 113 mg/dL (0-200); Gamma Glutamyl Transferase 571 U/L (8-61); HDL Cholesterol 27 mg/dL (60-100); LDL Cholesterol Calculated 53 mg/dL (50-129); LDL HDL Ratio 1.96 RATIO (0.00-3.22); Phosphorus 2.5 mg/dL (2.5-4.5); Triglycerides 166 mg/dL (0-150)
[2023-03-23 18:21] LABS: INR 1.12 (0.8-1.2)
[2023-03-23 18:30] LABS: Lactic Sepsis W/Reflex 4.1 mmol/L (0.5-2.2)
[2023-03-23 18:34] LABS: Vitamin B12 702 pg/mL (232-1245)
[2023-03-23] MEDS: enoxaparin 40 mg/0.4 mL Syringe SUBCUT (18:44)
[2023-03-23] MEDS: magnesium oxide 400 mg tablet PO (18:46)
[2023-03-23] MEDS: sotalol 80 mg Tablet 120 MG PO (18:49)
[2023-03-23 19:53] LABS: Reflex Lactate Order REFLEX LACTIC ORDERD
[2023-03-23] MEDS: sodium chloride 0.9% 1,000 ML 125 ML IV (20:44)
[2023-03-23 21:22] LABS: Hepatitis A Antibody IgM Non-Reactive (Nonreactive); Hepatitis B Core AB, Total Non-Reactive (Nonreactive); Hepatitis B Surface AB < 3.5 (11.5-1000); Hepatitis B Surface Antigen Non-Reactive (Nonreactive); Hepatitis C Virus Antibody Non-Reactive (Nonreactive)
[2023-03-23 22:03] LABS: Lactic Acid level (Lactate) 2.2 mmol/L (0.5-2.2)
[2023-03-24] VITALS (15 sets, daily range): BP systolic 106–140; BP diastolic 56–88; PULSE 51–64; RESP 15–27; TEMP 36.7; O2SAT 91–96
[2023-03-24] MEDS: metroNIDAZOLE IV 500 MG/100 ML PREMIX 100 MG IV ×3 (00:37→17:06)
[2023-03-24] MEDS: ciprofloxacin 400 MG/200 ML PREMIX 200 MG IV ×2 (02:05→14:53)
[2023-03-24 03:12] LABS: Basophils % 0.9 %; Lymphocytes # 0.3 10^3/uL (0.8-4.8); Lymphocytes % 10.7 %; Mean Corpuscular Hemoglobin 31.1 pg (27-33); Mean Corpuscular Volume 91.4 fl (82-101); Mean Platelet Volume 9.1 fL (7.4-10.4); Monocytes # 0.2 10^3/uL (0.2-0.9); Monocytes % 7.6 %; Neutrophils # 2.56 10^3/uL (1.8-7.7); Neutrophils % 80.8 %; Nucleated Red Blood Cells % 0 %; Platelet Count 75 10^3/cmm (157-399); Red Blood Count 3.83 10^6/uL (3.85-5.65); Red Cell Distribution Width 14.9 % (12.1-15.1); White Blood Count 3.17 10^3/uL (3.29-11.43)
[2023-03-24 03:33] LABS: Alanine Aminotransferase 136 U/L (0-41); Albumin Level 3.4 g/dL (3.5-5.2); Alkaline Phosphatase 159 U/L (40-130); Anion Gap 12.6 (5-19); Aspartate Amino Transferase 93 U/L (0-40); Blood Urea Nitrogen 12 mg/dL (8-23); Calcium 7.8 mg/dL (8.5-10.5); Carbon Dioxide 22 mmol/L (22-29); Chloride 104 mmol/L (98-107); Globulin 3.1 g/dL (1.3-4.6); Glucose 148 mg/dL (65-115); Magnesium 1.8 mg/dL (1.7-2.3); Osmolality Calculated 283 mOsm/kg (285-295); Potassium 3.6 mmol/L (3.5-5.1); Sodium 135 mmol/L (136-145); Total Bilirubin 3.5 mg/dL (0.15-1.2); Total Protein 6.5 g/dL (6.6-8.7)
[2023-03-24] MEDS: pantoprazole 40 mg SDV IVP ×2 (04:41→17:12)
[2023-03-24] MEDS: sodium chloride 0.9% 1,000 ML 125 ML IV ×2 (04:43→12:55)
[2023-03-24] MEDS: aspirin 81 mg EC Tablet PO (06:25)
[2023-03-24 06:59] LABS: Basophils % 0.6 %; Eosinophils % 0.6 %; Hematocrit 37.9 % (37-53); Lymphocytes # 0.4 10^3/uL (0.8-4.8); Lymphocytes % 11.4 %; Mean Corpuscular HGB Conc 33.8 g/dL (30-55); Mean Corpuscular Hemoglobin 30.7 pg (27-33); Mean Corpuscular Volume 90.9 fl (82-101); Mean Platelet Volume 9.9 fL (7.4-10.4); Monocytes # 0.3 10^3/uL (0.2-0.9); Monocytes % 7.9 %; Neutrophils % 78.9 %; Nucleated Red Blood Cells % 0 %; Platelet Count 86 10^3/cmm (157-399); Red Blood Count 4.17 10^6/uL (3.85-5.65); Red Cell Distribution Width 14.8 % (12.1-15.1); White Blood Count 3.17 10^3/uL (3.29-11.43)
[2023-03-24 07:14] LABS: INR 1.14 (0.8-1.2)
[2023-03-24 07:15] LABS: Partial Thromboplastin Time 44.6 SECONDS (23.9-36.7)
[2023-03-24 07:22] LABS: Alanine Aminotransferase 147 U/L (0-41); Albumin Level 3.6 g/dL (3.5-5.2); Alkaline Phosphatase 157 U/L (40-130); Anion Gap 11.7 (5-19); Aspartate Amino Transferase 83 U/L (0-40); Blood Urea Nitrogen 11 mg/dL (8-23); Carbon Dioxide 23 mmol/L (22-29); Chloride 106 mmol/L (98-107); Glucose 112 mg/dL (65-115); Lipase 38 U/L (13-60); Osmolality Calculated 284 mOsm/kg (285-295); Potassium 3.7 mmol/L (3.5-5.1); Sodium 137 mmol/L (136-145); Total Bilirubin 3.4 mg/dL (0.15-1.2); Total Protein 6.6 g/dL (6.6-8.7)
[2023-03-24] MEDS: amlodipine 5 mg Tablet PO (08:16)
[2023-03-24] MEDS: isosorbide mononitrate ER 60 mg Tablet PO (08:16)
[2023-03-24] MEDS: sotalol 80 mg Tablet 120 MG PO ×2 (08:16→18:57)
[2023-03-24] MEDS: magnesium oxide 400 mg tablet PO ×2 (08:16→18:57)
--- NOTE | 2023-03-24 15:32 | PM.PN ---
Subjective Subjective: seen today pt feels much better says he was able to get out of bed as well abd pain has also improved at bedside still awaiting bed for transfer Vitals/I&O/Wt Last Vital Signs Temp 99.4 F 03/23/23 15:41 Pulse 60 03/24/23 08:19 Resp 18 03/24/23 08:19 BP 126/62 03/24/23 08:19 Pulse Ox 96 03/24/23 06:00 O2 Del Method Room Air 03/24/23 06:00 03/24/23 03/24/23 03/24/23 06:59 14:59 22:59 Intake Total 1300 / 3600 1100 / 1100 Balance 1300 / 3600 1100 / 1100 Weight last 48 hrs Weight 81.647 kg Physical Exam Narrative: General: Alert oriented x3, HEENT: Normocephalic, atraumatic, EOMI, breathing room air, anicteric sclera Cardio: Regular rate rhythm, normal S1-S2, no murmurs rubs gallops, Respiratory: Good bilateral air entry, no wheezes no rhonchi appreciated GI: Abdomen soft, nontender, nondistended, bowel sounds +, Behavior: Appropriate and cooperative Extremities: no edema, no cyanosis Data 03/24/23 06:52 03/24/23 06:52 Micro: Microbiology 03/23/23 11:53 Blood Culture - Preliminary Blood NEGATIVE TO DATE 03/23/23 11:50 Blood Culture - Preliminary Blood NEGATIVE TO DATE A&P Assessment and plan (1) HTN (hypertension): Qualifiers: Hypertension type: essential hypertension Qualified Code(s): I10 - Essential (primary) hypertension (2) Arteriosclerotic coronary artery disease: (3) Coronary artery disease: (4) Atrial fibrillation: Qualifiers: Atrial fibrillation type: persistent (not longstanding) Qualified Code(s): I48.19 - Other persistent atrial fibrillation (5) Hyperlipidemia: (6) Thrombocytopenia: (7) Ascending cholangitis: Plan #Possible ascending cholangitis #Fever secondary to above #Elevated total bilirubin #Elevated liver enzymes #History of CAD status post stent 2013 #Hypertension #Hyperlipidemia #History of chronic pancytopenia ? Patient does have a history of cholecystectomy. Elevated liver enzymes at this time along with elevated total bilirubin, elevated alkaline phosphatase. Evidence of dilated intrahepatic ducts on CT. ? Continue ciprofloxacin and Flagyl. ? Tylenol 650 every 6 hours as needed ? Cgt evalated, CRP elevated. ? Check blood cultures ? Patient awaiting bed availability at [facility] for gastroenterology. He will likely require an ERCP for further diagnostic and therapeutic purposes ? Troponins negative x 2. Trops delta negative ? Check vitamin B12 level ? UA normal. Chest x-ray normal. ? Check phosphorus level ? Check hepatitis panel - negative ? Check antismooth muscle antibody, ALIYA - pending ? Check antimitochondrial antibody - pending ? NPO except meds - Continue sotalol, protonix, imdur, amlodipine - hold plavix, atorvastatin - EKG reviewed. no acute ischemia Full code DVT prophylaxis: Lovenox Attestations Medical Necessity Statement*: pending transfer Coding Level of Care Code Acute Code for Chg Fwd Diagnoses Essential hypertension I10 Hypertension type: essential hypertension Arteriosclerotic coronary artery disease I25.10 Coronary artery disease I25.10 Persistent atrial fibrillation I48.19 Atrial fibrillation type: persistent (not longstanding) Hyperlipidemia E78.5 Thrombocytopenia D69.6 Ascending cholangitis K83.09
[2023-03-24] MEDS: enoxaparin 40 mg/0.4 mL Syringe SUBCUT (17:11)
[2023-03-24] MEDS: sodium chloride 0.9% 1,000 ML 75 ML IV (21:19)
[2023-03-25 00:09] VITALS: BP 114/56; PULSE 58; RESP 18; O2SAT 93
[2023-03-27 11:10] LABS: Smooth Muscle Ab Screen NEGATIVE (NEGATIVE)
== END 2023-03-25 00:12 | disposition short-term general hospital (02) ==
PROVIDERS: Internal Medicine; Emergency Provider Family Medicine; PCP Family Medicine
DX: K83.09 Other cholangitis (principal); D69.6 Thrombocytopenia, unspecified; Z11.52 Encounter for screening for COVID-19; I25.10 Atherosclerotic heart disease of native coronary artery without angina pectoris; E78.5 Hyperlipidemia, unspecified; I10 Essential (primary) hypertension; F17.210 Nicotine dependence, cigarettes, uncomplicated; F17.220 Nicotine dependence, chewing tobacco, uncomplicated
CPT/HCPCS: 36415; 71045; 74177; 80053; 80061; 81003; 82248; 82607; 82977; 83516; 83605; 83690; 83735; 84100; 84484; 85025; 85610; 85730; 86140; 86705; 86706; 86709; 86803; 87040; 87340; 87635; 93005; 96365; 96366; 96367; 96372; 96375; 99285; C9113; J0744; J1650; J3490; J7030; Q9967

== ENCOUNTER → 2023-03-31 15:35 | Outpatient (BNVA) | payer MEDICARE, OTHER, SELFPAY | PROVIDERS: PCP Family Medicine; Visit Provider Family Medicine | DX: K83.09 Other cholangitis (principal) | CPT/HCPCS: 80053; 85025; 86140 ==

== ENCOUNTER 2023-04-23 11:42 | Oncology outpatient (recurring) (ONCR) | payer MEDICARE, OTHER, SELFPAY ==
[2023-04-23 12:14] LABS: Basophils % 0.4 %; Eosinophils % 0.8 %; Hematocrit 35.8 % (37-53); Lymphocytes # 0.5 10^3/uL (0.8-4.8); Lymphocytes % 21.5 %; Mean Corpuscular HGB Conc 34.1 g/dL (30-55); Mean Corpuscular Hemoglobin 30.3 pg (27-33); Mean Corpuscular Volume 89.1 fl (82-101); Monocytes # 0.2 10^3/uL (0.2-0.9); Monocytes % 8.9 %; Neutrophils # 1.62 10^3/uL (1.8-7.7); Neutrophils % 68.4 %; Nucleated Red Blood Cells % 0 %; Platelet Count 97 10^3/cmm (157-399); Red Blood Count 4.02 10^6/uL (3.85-5.65); Red Cell Distribution Width 14.6 % (12.1-15.1); White Blood Count 2.37 10^3/uL (3.29-11.43)
[2023-04-23 12:52] LABS: Alanine Aminotransferase 27 U/L (0-41); Alkaline Phosphatase 88 U/L (40-130); Anion Gap 15.2 (5-19); Aspartate Amino Transferase 25 U/L (0-40); Blood Urea Nitrogen 13 mg/dL (8-23); Calcium 8.9 mg/dL (8.5-10.5); Carbon Dioxide 26 mmol/L (22-29); Chloride 103 mmol/L (98-107); Globulin 3.3 g/dL (1.3-4.6); Glucose 116 mg/dL (65-115); Lactate Dehydrogenase 161 U/L (135-225); Osmolality Calculated 291 mOsm/kg (285-295); Potassium 4.2 mmol/L (3.5-5.1); Sodium 140 mmol/L (136-145); Total Bilirubin 2.3 mg/dL (0.15-1.2); Total Protein 7.3 g/dL (6.6-8.7)
== END 2023-05-10 23:59 | disposition home or self-care (01) ==
PROVIDERS: PCP Family Medicine; Visit Provider Internal Medicine Medical Oncology
DX: D61.818 Other pancytopenia (principal); D64.9 Anemia, unspecified; D69.6 Thrombocytopenia, unspecified; D72.810 Lymphocytopenia; R16.1 Splenomegaly, not elsewhere classified; M85.89 Other specified disorders of bone density and structure, multiple sites; R91.1 Solitary pulmonary nodule; Z79.899 Other long term (current) drug therapy; Z87.891 Personal history of nicotine dependence
CPT/HCPCS: 36415; 80053; 83615; 85025; 99213

== ENCOUNTER → 2023-05-01 09:24 | Outpatient (BNVA) | payer MEDICARE, OTHER, SELFPAY | PROVIDERS: PCP Family Medicine; Visit Provider Nurse Practitioner Family | DX: I10 Essential (primary) hypertension (principal); I48.19 Other persistent atrial fibrillation; I25.10 Atherosclerotic heart disease of native coronary artery without angina pectoris; F17.220 Nicotine dependence, chewing tobacco, uncomplicated | CPT/HCPCS: 99214 ==

== ENCOUNTER 2023-05-23 19:48 | Emergency (ER) | payer MEDICARE, OTHER, SELFPAY ==
[2023-05-23 20:03] VITALS: BP 154/69; PULSE 67; RESP 18; TEMP 36.6; O2SAT 96; BMI 32.4
--- NOTE | 2023-05-23 20:07 | CTR_ITS ---
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 Positive loc. Also endorses low back and RT hip pain. ; Additional info: Fall, head injury TECHNIQUE: Imaging protocol: Computed tomography of the head without contrast. Radiation optimization: All CT scans at this facility use at least one of these dose optimization techniques: automated exposure control; mA and/or kV adjustment per patient size (includes targeted exams where dose is matched to clinical indication); or iterative reconstruction. COMPARISON: CT head wo con* [id number] 11/29/2022 5:22 AM RADIATION DOSE METRICS: Total DLP (mGy-cm): 1098.88 FINDINGS: Brain: There is diffuse cerebral atrophy present, consistent with this patient's age. Periventricular and subcortical white matter low densities are present which at this age likely represent microvascular ischemic change. There are small chronic lacunar infarcts in the left lentiform nucleus and internal capsules.No evidence for large acute ischemic infarction. There is acute extra-axial hemorrhage along the posterior right parietal calvarium measuring 9 mm in thickness mildly effacing the underlying sulci. Acute extra-axial hemorrhage along the left posterior parietal calvarium measures up to 10 mm in thickness and mildly effaces the underlying sulci. There is a small amount of intraparenchymal hemorrhage in the posterior left parietal lobe seen on series 11, image 56 measuring 6 mm in the transverse dimension. No significant midline shift. Cerebral ventricles: No ventriculomegaly. Paranasal sinuses: There is mucosal thickening of the maxillary sinuses. A small air-fluid levels present in the left maxillary sinus. Mastoid air cells: Visualized mastoid air cells are well aerated. Bones/joints: Unremarkable. No acute fracture. Soft tissues: Unremarkable. Vasculature: Calcified plaque is present within the carotid siphons. CT/CT head wo con* [id number] IMPRESSION: 1. There is acute extra-axial hemorrhage along the bilateral parietal calvaria with minimal effacement upon the underlying sulci. 2. A small focus of intraparenchymal hemorrhage is present in the posterior left parietal lobe. 3. There are senescent changes in the brain as described above.
--- NOTE | 2023-05-23 20:07 | CTR_ITS ---
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 Positive loc. Also endorses low back and RT hip pain. ; Additional info: Low back pain TECHNIQUE: Imaging protocol: Computed tomography of the lumbar spine without contrast. Radiation optimization: All CT scans at this facility use at least one of these dose optimization techniques: automated exposure control; mA and/or kV adjustment per patient size (includes targeted exams where dose is matched to clinical indication); or iterative reconstruction. COMPARISON: CT abdomen pelvis 03/23/2023 RADIATION DOSE METRICS: Total DLP (mGy-cm): 914.58 FINDINGS: Bones/joints: There is no fracture. Lumbar vertebra maintain their height minimal concavity of endplates is stable and unchanged from prior scan and does not acute fracture. There is no fracture of the posterior elements. Vertebral alignment is normal. There are minimal disc bulges at L4-L5 and L5-S1. There is no central or foraminal stenosis. Soft tissues: Unremarkable. CT/CT lumbar spine wo con* [id number] IMPRESSION: No fracture of the lumbar spine
--- NOTE | 2023-05-23 20:11 | CTR_ITS ---
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 Positive loc. Also endorses low back and RT hip pain. ; Additional info: Traumatic righ hip and pelvic pain TECHNIQUE: Imaging protocol: Computed tomography of the pelvis without contrast. Exam focused on the skeleton. Radiation optimization: All CT scans at this facility use at least one of these dose optimization techniques: automated exposure control; mA and/or kV adjustment per patient size (includes targeted exams where dose is matched to clinical indication); or iterative reconstruction. COMPARISON: CT abdomen pelvis w con* [id number] 03/23/2023 2:12 PM RADIATION DOSE METRICS: Total DLP (mGy-cm): 474.04 FINDINGS: Intraperitoneal space: No evidence of intrapelvic hemorrhage. Bones/joints: There is no fracture of the iliac bones. There is no fracture of the pubic rami. There is no fracture or dislocation of the hips. There is no fracture of the sacrum or coccyx. Sacrococcygeal alignment is normal. There are mild hypertrophic degenerative changes at the pubic symphysis and iliac crest. There is a bridging osteophyte across the anterior aspect of the right SI joint. Incidental bone island noted in the right iliac bone Soft tissues: There is no evidence of a soft tissue hematoma. CT/CT pelvis wo con [id number] IMPRESSION: No fracture of the pelvis
--- NOTE | 2023-05-23 20:12 | W.ED.TRAUMA ---
HPI - Trauma General: Chief Complaint: Trauma Stated Complaint: fell hit back of head, loss of memory 2 times toda Time Seen by Provider: 05/23/23 20:08 History of Present Illness: 82-year-old man with a history of coronary artery disease on Plavix, hypertension, hyperlipidemia who presents the emergency room after he fell backwards over his lawnmower. Hit the back of his head and was somewhat confused for a little while and could not remember the event. He is also having some pain in his right pelvis and hip area with a little bit of difficulty walking. No nausea or vomiting. No focal motor deficits. No abdominal pain. No chest pain. Review of Systems Narrative: Constitutional symptoms: Negative except as documented in HPI. Skin symptoms: Negative except as documented in HPI. Eye symptoms: Negative except as documented in HPI. ENMT symptoms: Negative except as documented in HPI. Respiratory symptoms: Negative except as documented in HPI. Cardiovascular symptoms: Negative except as documented in HPI. Gastrointestinal symptoms: Negative except as documented in HPI. Genitourinary symptoms: Negative except as documented in HPI. Musculoskeletal symptoms: Negative except as documented in HPI. Neurologic symptoms: Negative except as documented in HPI. Psychiatric symptoms: Negative except as documented in HPI. Endocrine symptoms: Negative except as documented in HPI. [facility] ED PFSH: Medical History Coronary artery disease Salmonella enteritis Hyperlipidemia PATTI (obstructive sleep apnea) Atrial fibrillation Arteriosclerotic coronary artery disease HTN (hypertension) Surgical History S/P cholecystectomy (2007) S/P PTCA (percutaneous transluminal coronary angioplasty) (2013) Family History Other Cancer Social History Smoking and tobacco/nicotine status: tobacco/nicotine user, details unknown cigarettes Packs smoked per day: 1 Years cigarettes smoked: 5 [ Other cigarette details: smoked 50 years prior] and smokeless tobacco Smokeless tobacco user: chewing tobacco Smokeless tobacco details: still using chewing tobacco Quit status (tobacco/nicotine): has quit using Former quit date comment: Smoked x 5 to 6 years Alcohol intake: never Substance/Drug Use: never Lives independently: Yes Household members: spouse and children Marital status: Physical Exam Narrative: EXAM NARRATIVE: General: Alert, no acute distress. Skin: Warm, dry. Head: Normocephalic, atraumatic. Neck: Supple, trachea midline. Eye: Extraocular movements are intact. Ears, nose, mouth and throat: mucosa moist. Cardiovascular: Regular, Normal peripheral perfusion. Respiratory: Lungs are clear to auscultation, respirations are non-labored, breath sounds are equal, Symmetrical chest wall expansion. Gastrointestinal: Soft, Nontender, Non distended, Normal bowel sounds. Musculoskeletal: Normal ROM, no deformity. Some tenderness in the right hip and pelvis area. No obvious deformities. No shortening or rotation. Neurological: Alert and oriented, No focal neurological deficit observed. Psychiatric: Cooperative, appropriate mood & affect. Course Vital Signs: Vital signs: Vital Signs Temperature 97.8 F 05/23/23 20:03 Pulse Rate 67 05/23/23 20:03 Respiratory Rate 18 05/23/23 20:03 Blood Pressure 154/69 05/23/23 20:03 Pulse Oximetry 96 05/23/23 20:03 Oxygen Delivery Me thod Room Air 05/23/23 20:03 MDM - Trauma Medical Decision Making Medical decision making: Differential diagnosis including but not limited to and based on the above HPI, review of systems and physical exam: patient with fall and head injury with neck pain. Subdural hematoma, subarachnoid hemorrhage, concussion, skull fracture. Also concern for cervical fracture versus cervical strain. Orders placed to evaluate differential diagnosis based on the above differential, HPI and physical exam CT scan of the head and neck were ordered. Also a CT of the pelvis was ordered given that the patient has pelvic and hip pain that likely would not be seen on an x-ray CT of the head without contrast: Patient has small bilateral parietal/occipital subdural hematomas. I reviewed this in the CT scanner. At that time it was determined that he would need to be transferred to a hospital that has neurosurgical capabilities. Before any other results were called I had him accepted at [facility] in [place] by Dr. Cote. I spoke with radiologist on-call and in addition to the findings at scene they also pointed out a very small left parietal intraparenchymal hemorrhage. CT of the pelvis: I do not see any obvious fractures in his low spine or his pelvis or his hips. Reexamination: Patient continues to be alert and oriented. Complains of a slight headache. No focal motor deficits. No increased work of breathing. Lab Data 05/23/23 20:35 05/23/23 20:[address] 05/23/23 20:07 IMPRESSION: 1. There is acute extra-axial hemorrhage along the bilateral parietal calvaria with minimal effacement upon the underlying sulci. 2. A small focus of intraparenchymal hemorrhage is present in the posterior left parietal lobe. 3. There are senescent changes in the brain as described above. ADDENDUM: 05/23/232047 CRITICAL RESULT: The study was personally discussed on the telephone with VEENA Gutierrez on 05/23/2023 8:46 PM CDT. The results were understood and acknowledged. Lumbar Spine CT 05/23/23 20:07 IMPRESSION: No fracture of the lumbar spine Pelvis CT 05/23/23 20:11 IMPRESSION: No fracture of the pelvis Laboratory Results WBC 2.51 10^3/uL (3.29-11.43) L 05/23/23 20:35 RBC 4.02 10^6/uL (3.85-5.65) 05/23/23 20:35 Hgb 12.50 g/dL (11.27-16.99) 05/23/23 20:35 Hct 36.4 % (37-53) L 05/23/23 20:35 MCV 90.5 fl (82-101) 05/23/23 20:35 MCH 31.1 pg (27-33) 05/23/23 20:35 MCHC 34.3 g/dL (30-55) 05/23/23 20:35 RDW 14.7 % (12.1-15.1) 05/23/23 20:35 Plt Count 99 10^3/cmm (157-399) L 05/23/23 20:35 MPV 9.3 fL (7.4-10.4) 05/23/23 20:35 Neut % (Auto) 71.7 % 05/23/23 20:35 Lymph % (Auto) 17.5 % 05/23/23 20:35 [place] % (Auto) 8.8 % 05/23/23 20:35 Eos % (Auto) 0.8 % 05/23/23 20:35 Baso % (Auto) 0.8 % 05/23/23 20:35 Neut # (Auto) 1.80 10^3/uL (1.8-7.7) 05/23/23 20:35 Lymph # (Auto) 0.4 10^3/uL (0.8-4.8) L 05/23/23 20:35 [place] # (Auto) 0.2 10^3/uL (0.2-0.9) 05/23/23 20:35 Eos # (Auto) 0.0 10^3/uL (0.0-0.8) 05/23/23 20:35 Baso # (Auto) 0.0 10^3/uL (0.0-0.1) 05/23/23 20:35 Nucleated RBC % (auto) 0 % 05/23/23 20:35 Nucleated RBCs # 0.0 /100WBC 05/23/23 20:35 XR interpretation done by ED provider, pending radiology final review Other Data Assessment and plan: Bilateral subdural hematomas Left parietal intraparenchymal hemorrhage Fall Head injury -Patient is being transferred to [facility] in [place]. We have requested [facility], but the patient adamantly declines. - Discussed findings and plan with patient. Answered any questions. - All laboratory values were reviewed and interpreted personally by myself, the ER physician - Lab work is pending at the time of transfer. - Evaluation and treatment of this problem were appropriate in the emergency setting Discharge Plan Discharge Patient Disposition: Xfer Short-Term Hosp Clinical Impression: Bilateral subdural hematomas, Intraparenchymal hemorrhage of brain, Fall Condition: Stable Referrals: Kam Regan MD [Primary Care Provider] - Coding Level of Care Code ED Activated Sludge Attendant for Trent Lanza
[2023-05-23 20:42] LABS: Basophils % 0.8 %; Eosinophils % 0.8 %; Hematocrit 36.4 % (37-53); Lymphocytes # 0.4 10^3/uL (0.8-4.8); Lymphocytes % 17.5 %; Mean Corpuscular HGB Conc 34.3 g/dL (30-55); Mean Corpuscular Hemoglobin 31.1 pg (27-33); Mean Corpuscular Volume 90.5 fl (82-101); Mean Platelet Volume 9.3 fL (7.4-10.4); Monocytes # 0.2 10^3/uL (0.2-0.9); Monocytes % 8.8 %; Neutrophils % 71.7 %; Nucleated Red Blood Cells % 0 %; Platelet Count 99 10^3/cmm (157-399); Red Blood Count 4.02 10^6/uL (3.85-5.65); Red Cell Distribution Width 14.7 % (12.1-15.1); White Blood Count 2.51 10^3/uL (3.29-11.43)
--- NOTE | 2023-05-23 20:46 | ECG_ITS ---
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 Measurements Intervals [place] Rate: 63 P: -43 MA: 195 QRS: 30 QRSD: 79 T: 66 QT: 410 QTc: 421 Interpretive Statements SINUS RHYTHM Compared to ECG 03/23/2023 16:51:44 First degree AV block no longer present Electronically Signed On 05-24-2023 20:48:20 CDT by Chevy Charles M.D. [email or web address] ([email or web address]) [email or web address] centerAmerican Hometown [id number]
[2023-05-23 20:52] LABS: INR 1.02 (0.8-1.2)
[2023-05-23 20:53] LABS: Partial Thromboplastin Time 41.6 SECONDS (23.9-36.7)
[2023-05-23 20:56] LABS: Lactic Sepsis W/Reflex 1.6 mmol/L (0.5-2.2)
[2023-05-23 21:00] LABS: Anion Gap 11.9 (5-19); Blood Urea Nitrogen 19 mg/dL (8-23); Calcium 9.2 mg/dL (8.5-10.5); Carbon Dioxide 25 mmol/L (22-29); Chloride 104 mmol/L (98-107); Creatinine Clr Calc Pharmacy 58.2259; Glucose 196 mg/dL (65-115); Osmolality Calculated 292 mOsm/kg (285-295); Potassium 3.9 mmol/L (3.5-5.1); Sodium 137 mmol/L (136-145)
[2023-05-23 21:10] VITALS: BP 132/65; PULSE 67; RESP 30; O2SAT 99
== END 2023-05-23 21:12 | disposition short-term general hospital (02) ==
PROVIDERS: Emergency Provider Emergency Medicine; PCP Family Medicine
DX: S06.5XAA Traumatic subdural hemorrhage with loss of consciousness status unknown, initial encounter (principal); W01.0XXA Fall on same level from slipping, tripping and stumbling without subsequent striking against object, initial encounter; I25.10 Atherosclerotic heart disease of native coronary artery without angina pectoris; E78.5 Hyperlipidemia, unspecified; I10 Essential (primary) hypertension; F17.210 Nicotine dependence, cigarettes, uncomplicated; F17.220 Nicotine dependence, chewing tobacco, uncomplicated; Z79.02 Long term (current) use of antithrombotics/antiplatelets
CPT/HCPCS: 70450; 72131; 72192; 80048; 83605; 85025; 85610; 85730; 93005; 99285

== ENCOUNTER 2023-07-06 17:10 | Emergency (ER) | payer MEDICARE, OTHER, SELFPAY ==
[2023-07-06 17:17] VITALS: BP 167/66; PULSE 61; RESP 16; TEMP 36.7; O2SAT 97
--- NOTE | 2023-07-06 17:25 | CTR_ITS ---
PROCEDURE INFORMATION: Exam: CT Head Without Contrast Exam date and time: 07/06/2023 5:40 PM Age: 82 years old Clinical indication: Injury or trauma; Fall; Blunt trauma (contusions or hematomas); Without loss of consciousness; Additional info: Fall, history of recent head bleed in May TECHNIQUE: Imaging protocol: Computed tomography of the head without contrast. Radiation optimization: All CT scans at this facility use at least one of these dose optimization techniques: automated exposure control; mA and/or kV adjustment per patient size (includes targeted exams where dose is matched to clinical indication); or iterative reconstruction. COMPARISON: CT head wo con* [id number] 05/23/2023 8:17 PM RADIATION DOSE METRICS: Total DLP (mGy-cm): 965.4 FINDINGS: Brain: There is no acute intracranial hemorrhage, cerebral edema, or midline shift. Chronic microvascular ischemic changes are seen in the periventricular white matter. Age-related cerebral and cerebellar volume loss is present. Cerebral ventricles: Mild ex vacuo dilation of the lateral ventricles is noted. Paranasal sinuses: There is complete opacification of the right maxillary sinus. An underlying mucocele could be present. An irregular mucous retention cyst is noted in the left maxillary sinus. There is partial opacification of the posterior left ethmoid air cells. Mastoid air cells: The mastoid air cells are clear. Orbital cavities: The included orbital structures are unremarkable. Bones: Unremarkable. No acute fracture. Soft tissues: Unremarkable. Vasculature: Atherosclerotic calcifications are seen involving the cavernous carotid arteries. CT/CT head wo con* [id number] IMPRESSION: 1. No acute intracranial abnormality. 2. Atrophy and chronic deep white matter ischemic changes.
--- NOTE | 2023-07-06 17:25 | CTR_ITS ---
PROCEDURE INFORMATION: Exam: CT Cervical Spine Without Contrast Exam date and time: 07/06/2023 5:40 PM Age: 82 years old Clinical indication: Injury or trauma; Fall; Blunt trauma; Additional info: Fall, hit head, pain to neck and back of head TECHNIQUE: Imaging protocol: Computed tomography of the cervical spine without contrast. Radiation optimization: All CT scans at this facility use at least one of these dose optimization techniques: automated exposure control; mA and/or kV adjustment per patient size (includes targeted exams where dose is matched to clinical indication); or iterative reconstruction. COMPARISON: CT cervical spin wo con* [id number] 02/07/2022 3:57 AM RADIATION DOSE METRICS: Total DLP (mGy-cm): 701.9 FINDINGS: Bones: Bone mineralization is decreased, suggestive of osteopenia. No acute cervical spine fracture is identified. Alignment is anatomic. Severe degenerative changes of the cervical spine are present. There is no severe spinal canal stenosis. Multilevel neural foraminal narrowing from uncinate spurring and facet arthropathy is noted. Lungs: The lung apices are clear. Vasculature: Atherosclerotic calcifications are present at the carotid bifurcations. Soft tissues: Unremarkable. CT/CT cervical spin wo con* [id number] IMPRESSION: 1. No acute abnormality. 2. Chronic findings as discussed above.
[2023-07-06 17:47] LABS: Add Urine Microscopic? NO; Charge for UA Resulting for Rev
[2023-07-06 17:59] LABS: Bilirubin Urine Neg (Negative); Blood Urine Neg (Negative); Glucose Urine UA 1+ (Normal); Ketones Urine Negative (Negative); Leukocyte Esterase Urine Negative (Negative); Nitrate Urine Negative (Negative); Protein Urine Neg (Negative); Urine Appearance Clear (CLEAR); Urine Color Yellow (Yellow); Urobilinogen Urine Norm (Negative); pH Urine 8 (5-7)
[2023-07-06 18:04] VITALS: BP 141/72; PULSE 63; RESP 16; O2SAT 96
[2023-07-06 18:04] LABS: Basophils % 0.8 %; Eosinophils % 0.8 %; Hematocrit 39.8 % (37-53); Lymphocytes # 0.6 10^3/uL (0.8-4.8); Lymphocytes % 21.2 %; Mean Corpuscular HGB Conc 33.4 g/dL (30-55); Mean Corpuscular Hemoglobin 30.3 pg (27-33); Mean Corpuscular Volume 90.7 fl (82-101); Mean Platelet Volume 9.5 fL (7.4-10.4); Monocytes # 0.3 10^3/uL (0.2-0.9); Monocytes % 9.5 %; Neutrophils # 1.78 10^3/uL (1.8-7.7); Neutrophils % 67.3 %; Nucleated Red Blood Cells % 0 %; Platelet Count 88 10^3/cmm (157-399); Red Blood Count 4.39 10^6/uL (3.85-5.65); Red Cell Distribution Width 15.3 % (12.1-15.1); White Blood Count 2.64 10^3/uL (3.29-11.43)
[2023-07-06 18:15] LABS: INR 0.94 (0.8-1.2)
[2023-07-06 18:16] LABS: Partial Thromboplastin Time 31.7 SECONDS (23.9-36.7)
[2023-07-06 18:22] LABS: Alanine Aminotransferase 16 U/L (0-41); Albumin Level 4.3 g/dL (3.5-5.2); Alkaline Phosphatase 104 U/L (40-130); Anion Gap 14.1 (5-19); Aspartate Amino Transferase 17 U/L (0-40); Blood Urea Nitrogen 21 mg/dL (8-23); Calcium 8.7 mg/dL (8.5-10.5); Carbon Dioxide 24 mmol/L (22-29); Chloride 104 mmol/L (98-107); Creatinine Clr Calc Pharmacy 63.6224; Globulin 3.6 g/dL (1.3-4.6); Glucose 126 mg/dL (65-115); Osmolality Calculated 291 mOsm/kg (285-295); Potassium 4.1 mmol/L (3.5-5.1); Sodium 138 mmol/L (136-145); Total Bilirubin 2.3 mg/dL (0.15-1.2); Total Protein 7.9 g/dL (6.6-8.7)
--- NOTE | 2023-07-06 18:49 | ED_ITS ---
HPI - General Adult 2 General: Chief complaint: General Medical Stated complaint: fall Time Seen by Provider: 07/06/23 17:21 Source: patient, family and EMS Mode of arrival: ambulatory Limitations: no limitations History of Present Illness: Patient reports that he fell this morning around 1030 he fell backwards and cut of fell against the shower wall. Denies hitting his head or any LOC. He reports that on the day started having of pain in the back and head does in the lower back of his head and lasted a few minutes and then resolved but his said he did not look right so patient was brought in by EMS. Of note he had a fall resulting in a brain bleed 6 weeks ago. Review of Systems 2 General: Reports: 10 or more systems reviewed and unremarkable except in HPI and below PFSH ED 2 PFSH: Medical History Coronary artery disease Salmonella enteritis Hyperlipidemia PATTI (obstructive sleep apnea) Atrial fibrillation Arteriosclerotic coronary artery disease HTN (hypertension) Surgical History S/P cholecystectomy (2007) S/P PTCA (percutaneous transluminal coronary angioplasty) (2013) Family History Other Cancer Social History Smoking and tobacco/nicotine status: tobacco/nicotine user, details unknown cigarettes Packs smoked per day: 1 Years cigarettes smoked: 5 [ Other cigarette details: smoked 50 years prior] and smokeless tobacco Smokeless tobacco user: chewing tobacco Smokeless tobacco details: still using chewing tobacco Quit status (tobacco/nicotine): has quit using Former quit date comment: Smoked x 5 to 6 years Alcohol intake: never Substance/Drug Use: never Lives independently: Yes Household members: spouse and children Marital status: Physical Exam 2 Const: COMMON NORMALS: no acute distress, average body habitus, patient oriented x3, healthy appearing, alert and well nourished GENERAL APPEARANCE: well kempt and well developed HENMT: COMMON NORMALS: normocephalic, atraumatic, external ears normal and moist oral mucous membranes HEAD & SCALP: normocephalic and atraumatic E XTERNAL EAR: Yes external ears normal Eye: COMMON NORMALS: Equal, round and reactive pupils present, EOMs intact bilaterally and conjunctivae normal CONJUNCTIVA: Yes conjunctivae normal P UPIL: Yes Equal, round and reactive pupils present Neck/C-Spine: COMMON NORMALS: full ROM, no lymphadenopathy and supple Chest: CHEST: Yes Symmetrical chest wall rise and No Surgical scars present (Chest) Resp: COMMON NORMALS: normal respiratory effort, No retractions, No use of accessory muscles and clear to auscultation bilaterally AUSCULTATION: clear to auscultation bilaterally Cardio: COMMON NORMALS: regular rate, regular rhythm, S1 normal heart sound present, S2 normal heart sound present, No gallops present (Cardio), No clicks present (Cardio), No murmurs present (Cardio) and No rub (Cardio) RATE: r egular rate RHYTHM: regular rhythm HEART SOUNDS: S1 normal heart sound present, S2 normal heart sound present and no murmurs PERIPHERAL PULSES: o ther (Radial pulses 2+ and symmetric) GI: COMMON NORMALS: Soft to palpation, non-tender and no masses INSPECTION: No abdominal distension PALPATION: Yes Soft to palpation, No Guarding due to palpation present (GI) and No Rebound tenderness present : COMMON NORMALS: Yes no CVA tenderness BLADDER/KIDNEY EXAM: Yes no CVA tenderness Back/Pelvis: COMMON NORMALS: no CVA tenderness Extremity: COMMON NORMALS: normal to inspection, full ROM, capillary refill normal and no clubbing, cyanosis or edema Neuro: COMMON NORMALS: patient oriented x3 SENSORIUM/ORIENTATION: Yes alert Psych: APPEARANCE: Yes well kempt Skin: COMMON NORMALS: no rashes or lesions noted, no wounds, turgor normal and no jaundice GENERAL SKIN EXAM: no rashes or lesions noted and turgor normal Course 2 Vital Signs: Vital signs: Vital Signs Temperature 98.0 F 07/06/23 17:17 Pulse Rate 63 07/06/23 18:04 Respiratory Rate 16 07/06/23 18:04 Blood Pressure 141/72 07/06/23 18:04 Pulse Oximetry 96 07/06/23 18:04 Oxygen Delivery Me thod Room Air 07/06/23 18:04 [facility] - General Adult Medical Decision Making Patient's labs are fairly unremarkable except for a lower platelet count and white cell count. Given the fall and the CT head and CT C-spine were performed. I personally reviewed CT scans and I see no acute abnormality, radiology read concurs. Patient will be discharged home. Medical Records I reviewed the patient's medical records. Lab Data I reviewed the patient's lab results. 07/06/23 17:58 07/06/23 17:[address] 07/06/23 17:25 IMPRESSION: 1. No acute intracranial abnormality. 2. Atrophy and chronic deep white matter ischemic changes. Laboratory Results WBC 2.64 10^3/uL (3.29-11.43) L 07/06/23 17:58 RBC 4.39 10^6/uL (3.85-5.65) 07/06/23 17:58 Hgb 13.30 g/dL (11.27-16.99) 07/06/23 17:58 Hct 39.8 % (37-53) 07/06/23 17:58 MCV 90.7 fl (82-101) 07/06/23 17:58 MCH 30.3 pg (27-33) 07/06/23 17:58 MCHC 33.4 g/dL (30-55) 07/06/23 17:58 RDW 15.3 % (12.1-15.1) H 07/06/23 17:58 Plt Count 88 10^3/cmm (157-399) L 07/06/23 17:58 MPV 9.5 fL (7.4-10.4) 07/06/23 17:58 Neut % (Auto) 67.3 % 07/06/23 17:58 Lymph % (Auto) 21.2 % 07/06/23 17:58 [place] % (Auto) 9.5 % 07/06/23 17:58 Eos % (Auto) 0.8 % 07/06/23 17:58 Baso % (Auto) 0.8 % 07/06/23 17:58 Neut # (Auto) 1.78 10^3/uL (1.8-7.7) L 07/06/23 17:58 Lymph # (Auto) 0.6 10^3/uL (0.8-4.8) L 07/06/23 17:58 [place] # (Auto) 0.3 10^3/uL (0.2-0.9) 07/06/23 17:58 Eos # (Auto) 0.0 10^3/uL (0.0-0.8) 07/06/23 17:58 Baso # (Auto) 0.0 10^3/uL (0.0-0.1) 07/06/23 17:58 Nucleated RBC % (auto) 0 % 07/06/23 17:58 Nucleated RBCs # 0.0 /100WBC 07/06/23 17:58 PT 12.90 SECONDS (12.1-14.9) 07/06/23 17:58 INR 0.94 (0.8-1.2) 07/06/23 17:58 APTT 31.7 SECONDS (23.9-36.7) 07/06/23 17:58 Sodium 138 mmol/L (136-145) 07/06/23 17:58 Potassium 4.1 mmol/L (3.5-5.1) 07/06/23 17:58 Chloride 104 mmol/L (98-107) 07/06/23 17:58 Carbon Dioxide 24 mmol/L (22-29) 07/06/23 17:58 Anion Gap 14.1 (5-19) 07/06/23 17:58 BUN 21 mg/dL (8-23) 07/06/23 17:58 Creatinine 0.9 mg/dL (0.7-1.2) 07/06/23 17:58 GFR Calculation Not Reportable 07/06/23 17:58 Glucose 126 mg/dL (65-115) H 07/06/23 17:58 Calculated Osmolality 291 mOsm/kg (285-295) 07/06/23 17:58 Calcium 8.7 mg/dL (8.5-10.5) 07/06/23 17:58 Total Bilirubin 2.3 mg/dL (0.15-1.2) H 07/06/23 17:58 AST 17 U/L (0-40) 07/06/23 17:58 ALT 16 U/L (0-41) 07/06/23 17:58 Alkaline Phosphatase 104 U/L (40-130) 07/06/23 17:58 Total Protein 7.9 g/dL (6.6-8.7) 07/06/23 17:58 Albumin 4.3 g/dL (3.5-5.2) 07/06/23 17:58 Globulin 3.6 g/dL (1.3-4.6) 07/06/23 17:58 Urine Color Yellow (Yellow) 07/06/23 17:37 Urine Appearance Clear (CLEAR) 07/06/23 17:37 Urine pH 8 (5-7) H 07/06/23 17:37 Ur Specific [place] 1.020 (1.005-1.030) 07/06/23 17:37 Urine Protein Neg (Negative) 07/06/23 17:37 Urine Glucose (UA) 1+ (Normal) H 07/06/23 17:37 Urine Ketones Negative (Negative) 07/06/23 17:37 Urine Blood Neg (Negative) 07/06/23 17:37 Urine Nitrate Negative (Negative) 07/06/23 17:37 Urine Bilirubin Neg (Negative) 07/06/23 17:37 Urine Urobilinogen Norm mg/dL (Negative) 07/06/23 17:37 Ur Leukocyte Esterase Negative (Negative) 07/06/23 17:37 All radiology interpretation(s) finalized by discharge Discharge Plan Discharge Patient Disposition: Home Clinical Impression: Fall on same level as cause of accidental injury, Acute neck pain Condition: Stable Prescriptions: No Action magnesium oxide 400 mg magnesium capsule 400 mg PO BID aspirin [Adult Low Dose Aspirin] 81 mg tablet,delayed release (DR/EC) 81 mg PO QAM Hold Instructions: Home Medication placed on hold at Doctor's office cetirizine [Zyrtec] 10 mg tablet 10 mg PO QAM tamsulosin 0.4 mg capsule 0.4 mg PO BEDTIME Qty: 90 3RF alprazolam 0.25 mg tablet 0.25 mg PO BID PRN (Reason: anxiety) Qty: 20 2RF nitroglycerin [Nitrostat] 0.4 mg tablet, sublingual 0.4 mg SUBLINGUAL Q5M PRN (Reason: Chest Pain) Qty: 30 3RF clopidogrel 75 mg tablet See Rx Instructions .ROUTE .COMPLEX Qty: 90 3RF Hold Instructions: Home Medication placed on hold at Doctor's office Dose Instruction: TAKE 1 TABLET BY MOUTH EVERY DAY Rx Instructions: TAKE 1 TABLET BY MOUTH EVERY DAY atorvastatin 20 mg tablet See Rx Instructions .ROUTE .COMPLEX Qty: 90 3RF Dose Instruction: TAKE 1 TABLET BY MOUTH EVERY DAY Rx Instructions: TAKE 1 TABLET BY MOUTH EVERY DAY pantoprazole 40 mg tablet,delayed release (DR/EC) See Rx Instructions .ROUTE .COMPLEX Qty: 180 11RF Dose Instruction: TAKE 1 TABLET BY MOUTH TWICE A DAY Rx Instructions: TAKE 1 TABLET BY MOUTH TWICE A DAY ferrous sulfate [iron] 325 mg (65 mg iron) Tablet 325 mg PO DAILY isosorbide mononitrate 30 mg tablet extended release 24 hr 60 mg PO DAILY Rx Instructions: TAKE 2 TABLETS BY MOUTH EVERY DAY amlodipine 5 mg tablet 5 mg PO DAILY sotalol 120 mg tablet 120 mg PO BID montelukast 10 mg tablet 10 mg PO DAILY Discharge Orders: Discharge ED (Routine); Ordered 07/06/23 Ordered By: Weston Magallon Referrals: Kam Regan MD [Primary Care Provider] - Discharge Diet: Usual diet Discharge Activity: Resume usual activity Patient Instructions: Fall Prevention (ED) Coding Level of Care Code ED Parachute Accessories Attacher for Trent Lanza
[2023-07-06 19:19] VITALS: BP 141/72; PULSE 63; RESP 16; TEMP 36.7; O2SAT 96
== END 2023-07-06 19:21 | disposition home or self-care (01) ==
PROVIDERS: Emergency Provider Emergency Medicine; PCP Family Medicine
DX: M54.2 Cervicalgia (principal); Z79.02 Long term (current) use of antithrombotics/antiplatelets; Z79.82 Long term (current) use of aspirin; I25.10 Atherosclerotic heart disease of native coronary artery without angina pectoris; E78.5 Hyperlipidemia, unspecified; I10 Essential (primary) hypertension; W18.2XXA Fall in (into) shower or empty bathtub, initial encounter
CPT/HCPCS: 70450; 72125; 80053; 81003; 85025; 85610; 85730; 99284

== ENCOUNTER → 2023-09-08 08:03 | Outpatient (BNVA) | payer MEDICARE, OTHER, SELFPAY | PROVIDERS: PCP Family Medicine; Visit Provider Nurse Practitioner Family | DX: D48.5 Neoplasm of uncertain behavior of skin (principal); L57.0 Actinic keratosis; L82.1 Other seborrheic keratosis; L57.8 Other skin changes due to chronic exposure to nonionizing radiation; D22.4 Melanocytic nevi of scalp and neck; L81.4 Other melanin hyperpigmentation; D69.2 Other nonthrombocytopenic purpura; Z85.828 Personal history of other malignant neoplasm of skin | CPT/HCPCS: 11102; 17000; 99213 ==

== ENCOUNTER → 2023-10-28 09:29 | Outpatient (BNVA) | payer MEDICARE, OTHER, SELFPAY | PROVIDERS: PCP Family Medicine; Visit Provider Family Medicine | DX: D61.818 Other pancytopenia (principal) | CPT/HCPCS: 80053; 83615; 85025 ==

== ENCOUNTER 2023-11-03 09:49 | Oncology outpatient (recurring) (ONCR) | payer MEDICARE, OTHER, SELFPAY | END 2023-11-09 23:59 | disposition home or self-care (01) | PROVIDERS: PCP Family Medicine; Visit Provider Internal Medicine Medical Oncology | DX: D61.818 Other pancytopenia (principal); Z87.891 Personal history of nicotine dependence; R74.01 Elevation of levels of liver transaminase levels | CPT/HCPCS: 99214 ==

== ENCOUNTER 2023-11-05 09:58 | Outpatient (CLI) | payer MEDICARE, OTHER, SELFPAY ==
--- NOTE | 2023-11-05 10:15 | MR_ITS ---
WS: [id number] MRI BRAIN WITH AND WITHOUT CONTRAST HISTORY: vertigo/ CVA COMPARISON: CT head 07/06/2023 TECHNIQUE: Multiplanar imaging performed through the brain with MultiHance 18 ml's IV. No acute infarcts are seen. [place]-white matter differentiation is well preserved. Moderate bilateral s ymmetric atrophy. Mild bilateral small vessel ischemic disease. No prior infarct. No susceptibility artifacts or prior lacunar infarcts. Ventricles and extra-axial spaces are normal. Pituitary gland is slightly enlarged and heterogeneous. Area of decreased enhancement within the RIGH T lateral pituitary gland measures 9 x 8 x 6 mm and likely represents a pituitary microadenoma. No di splacement of the infundibulum or optic chiasm. No encasement of the adjacent carotid artery. Visualized posterior fossa and brainstem are also normal. Postcontrast images are negative for masses or vascular malformations. Dural venous sinuses are normal. Paranasal sinuses: Bilateral maxillary sinusitis. Heterogeneous secretions within the maxillary sinus es. Small air-fluid level LEFT maxillary sinus. Mastoid air cells: Normal. Calvarium and scalp: Normal. MR/MR head wo/w con [id number] IMPRESSION: 1. No acute infarct or hemorrhage. 2. Mild atrophy and small vessel ischemic disease. 3. RIGHT lateral pituitary microadenoma, 9 x 8 x 6 mm. 4. Bilateral maxillary sinusitis. 5. No mass or vascular malformation.
[2023-11-05] MEDS: gadobenate dimeglumine 20 mL vial IV (11:10)
== END 2023-11-05 09:59 | disposition home or self-care (01) ==
LOC: RAD 09:58
PROVIDERS: PCP Family Medicine; Visit Provider Family Medicine
DX: I63.9 Cerebral infarction, unspecified (principal); D35.2 Benign neoplasm of pituitary gland; J01.00 Acute maxillary sinusitis, unspecified; R42 Dizziness and giddiness
CPT/HCPCS: 70553

== ENCOUNTER 2023-11-07 17:50 | Emergency (ER) | payer MEDICARE, OTHER, SELFPAY ==
[2023-11-07 17:56] VITALS: BP 137/74; PULSE 68; RESP 17; TEMP 36.7; O2SAT 97; BMI 32.4
--- NOTE | 2023-11-07 18:06 | CTR_ITS ---
PROCEDURE INFORMATION: Exam: CT Head Without Contrast Exam date and time: 11/07/2023 6:16 PM Age: 82 years old Clinical indication: Injury or trauma; Fall; Blunt trauma (contusions or hematomas); Additional info: Fell head injury TECHNIQUE: Imaging protocol: Computed tomography of the head without contrast. Radiation optimization: All CT scans at this facility use at least one of these dose optimization techniques: automated exposure control; mA and/or kV adjustment per patient size (includes targeted exams where dose is matched to clinical indication); or iterative reconstruction. COMPARISON: MR head wo/w con [id number] 11/05/2023 10:20 AM RADIATION DOSE METRICS: Total DLP (mGy-cm): 1181.5 FINDINGS: Brain: Age related brain involution is present. Diffuse subcortical and periventricular white matter hypodensities are most in favor with chronic small vessel disease. No extra-axial fluid collections, midline shift, brain herniation, intracranial hemorrhage, or mass effect. [place]-white matter differentiation is preserved. Cerebral ventricles: Compensatory exvacuo ventriculomegaly. Paranasal sinuses: Complete chronic opacification of the right maxillary sinus. 2.6 cm retention cyst or polyp within the left maxillary sinus. Partial opacification of the ethmoid air cells. Mastoid air cells: Visualized mastoid air cells are well aerated. Orbital cavities: Bilateral intraocular lens replacements. Bones: No acute skeletal abnormality. Soft tissues: No acute soft tissue findings. Other findings: Intracranial atherosclerosis is present. CT/CT head wo con* [id number] IMPRESSION: 1. No acute intracranial pathology. 2. Incidental findings as above.
--- NOTE | 2023-11-07 18:11 | ED_ITS ---
Documented by User: HELEN Jaramillo 11/07/23 20:04 HPI - Fall General: Chief Complaint: Fall Stated Complaint: head pain s/p fall Time Seen by Provider: 11/07/23 18:06 History of Present Illness: 82-year-old male patient comes in today for complaints of fall injury. Patient reports he lost his balance and fell striking his head against the TV stand. Patient denies any loss of consciousness. Patient does take Plavix routinely. Patient had a intracranial bleed in April of this year. Patient reports no severe headache. Patient is acting normal for self. Related Data Home Medications Medication Instructions Recorded Confirmed aspirin 81 mg tablet,delayed 81 mg PO QAM 05/26/19 11/03/23 release (Adult Low Dose Aspirin) cetirizine 10 mg tablet (Zyrtec) 10 mg PO QAM 05/26/19 11/03/23 magnesium oxide 400 mg PO BID 05/26/19 11/03/23 ferrous sulfate 325 mg (65 mg 325 mg PO DAILY 05/21/22 11/03/23 iron) tablet (iron) amlodipine 5 mg tablet 5 mg PO DAILY 03/23/23 11/03/23 isosorbide mononitrate 30 mg 60 mg PO DAILY 03/23/23 11/03/23 tablet,extended release 24 hr montelukast 10 mg tablet 10 mg PO DAILY 03/23/23 11/03/23 sotalol 120 mg tablet 120 mg PO BID 03/23/23 11/03/23 Previous Rx's Medication Instructions Recorded nitroglycerin 0.4 mg sublingual 0.4 mg sublingual Q5M PRN Chest 05/27/22 tablet (Nitrostat) Pain #30 tabs tamsulosin 0.4 mg capsule 0.4 mg PO BEDTIME #90 caps 11/11/22 clopidogrel 75 mg tablet See Rx Instructions .Route 03/24/23 .COMPLEX #90 tabs atorvastatin 20 mg tablet See Rx Instructions .Route 05/05/23 .COMPLEX #90 tabs pantoprazole 40 mg tablet,delayed See Rx Instructions .Route 05/08/23 release .COMPLEX #180 tabs alprazolam 0.25 mg tablet 0.25 mg PO BID PRN anxiety #20 tabs 10/28/23 diazepam 5 mg tablet (Valium) 5 mg PO .COMPLEX PRN anxiety #30 10/28/23 tabs meclizine 25 mg tablet 25 mg PO DAILY dizziness #120 tabs 10/28/23 Allergies Allergy/AdvReac Type Severity Reaction Status Date / Time amoxicillin [From Augmentin] Allergy Mild ADR-Diarrhe Verified 11/07/23 18:02 a clavulanic acid Allergy Mild ADR-Diarrhe Verified 11/07/23 18:02 [From Augmentin] a Review of Systems General: Reports: 10 or more systems reviewed and unremarkable except in HPI and below PFSH ED PFSH: Medical History Coronary artery disease Salmonella enteritis Hyperlipidemia PATTI (obstructive sleep apnea) Atrial fibrillation Arteriosclerotic coronary artery disease HTN (hypertension) Surgical History S/P cholecystectomy (2007) S/P PTCA (percutaneous transluminal coronary angioplasty) (2013) Family History Other Cancer Social History Smoking and tobacco/nicotine status: never used tobacco/nicotine Quit status (tobacco/nicotine): has quit using Former quit date comment: Smoked x 5 to 6 years Alcohol intake: never Substance/Drug Use: never Lives independently: Yes Household members: spouse and children Marital status: Physical Exam Const: COMMON NORMALS: alert HENMT: COMMON NORMALS: normocephalic HEAD & SCALP: normocephalic Neck/C-Spine: COMMON NORMALS: full ROM Resp: COMMON NORMALS: normal respiratory effort and clear to auscultation bilaterally AUSCULTATION: clear to auscultation bilaterally Cardio: COMMON NORMALS: regular rate RATE: regular rate : COMMON NORMALS: Yes no CVA tenderness BLADDER/KIDNEY EXAM: Yes no CVA tenderness Back/Pelvis: COMMON NORMALS: no CVA tenderness Extremity: COMMON NORMALS: full ROM Neuro: SENSORIUM/ORIENTATION: Yes alert Skin: COMMON NORMALS: turgor normal GENERAL SKIN EXAM: turgor normal Course Vital Signs: Vital signs: Vital Signs Temperature 98.1 F 11/07/23 17:56 Pulse Rate 62 11/07/23 20:35 Respiratory Rate 23 H 11/07/23 20:35 Blood Pressure 128/65 11/07/23 20:35 Pulse Oximetry 94 11/07/23 20:35 Oxygen Delivery Me thod Room Air 11/07/23 17:56 MDM - Fall Medical Decision Making 82-year-old male patient comes in for evaluation of injury after a fall. Patient reports losing his balance and falling and hitting his head against the edge of the TV stand. Patient denies any loss of consciousness. Patient reports no headache or neck discomfort. Patient moves neck without difficulty. Patient appears nontoxic. Patient is in no acute distress. Patient states he has been having balance issues for a long time but back in April after his head injury he has had poor symptoms. Patient had a recent MRI on of this week. Patient is being evaluated by neurologist and is scheduled to follow-up with him in November. Differential diagnosis includes intracranial bleeding, s kull fracture, contusion, concussion. CT of the head was unremarkable. Reviewed exam with patient and family with recommendations for treatment and follow-up. Lab Data Radiology Impressions Head CT 11/07/23 18:06 IMPRESSION: 1. No acute intracranial pathology. 2. Incidental findings as above. All radiology interpretation(s) finalized by discharge Discharge Plan Discharge Patient Disposition: Home Clinical Impression: Head injury, acute, without loss of consciousness Qualifiers: Encounter type: initial encounter Qualified Code(s): S09.90XA - Unspecified injury of head, initial encounter Condition: Stable Prescriptions: No Action magnesium oxide 400 mg magnesium capsule 400 mg PO BID aspirin [Adult Low Dose Aspirin] 81 mg tablet,delayed release (DR/EC) 81 mg PO QAM Hold Instructions: Home Medication placed on hold at Doctor's office cetirizine [Zyrtec] 10 mg tablet 10 mg PO QAM tamsulosin 0.4 mg capsule 0.4 mg PO BEDTIME Qty: 90 3RF diazepam [Valium] 5 mg tablet 5 mg PO .COMPLEX PRN (Reason: anxiety) Qty: 30 2RF Rx Instructions: 1 tab tid prn severe dizziness meclizine 25 mg tablet 25 mg PO DAILY Qty: 120 3RF Rx Instructions: May take up to tid if needed. alprazolam 0.25 mg tablet 0.25 mg PO BID PRN (Reason: anxiety) Qty: 20 2RF nitroglycerin [Nitrostat] 0.4 mg tablet, sublingual 0.4 mg SUBLINGUAL Q5M PRN (Reason: Chest Pain) Qty: 30 3RF methylprednisolone acetate [Depo-Medrol] 80 mg/mL suspension 80 mg intra-articular ONCE Qty: 1 0RF lidocaine (PF) 10 mg/mL (1 %) solution 10 mg intra-articular ONCE Qty: 2 0RF clopidogrel 75 mg tablet See Rx Instructions .ROUTE .COMPLEX Qty: 90 3RF Hold Instructions: Home Medication placed on hold at Doctor's office Dose Instruction: TAKE 1 TABLET BY MOUTH EVERY DAY Rx Instructions: TAKE 1 TABLET BY MOUTH EVERY DAY atorvastatin 20 mg tablet See Rx Instructions .ROUTE .COMPLEX Qty: 90 3RF Dose Instruction: TAKE 1 TABLET BY MOUTH EVERY DAY Rx Instructions: TAKE 1 TABLET BY MOUTH EVERY DAY pantoprazole 40 mg tablet,delayed release (DR/EC) See Rx Instructions .ROUTE .COMPLEX Qty: 180 11RF Dose Instruction: TAKE 1 TABLET BY MOUTH TWICE A DAY Rx Instructions: TAKE 1 TABLET BY MOUTH TWICE A DAY ferrous sulfate [iron] 325 mg (65 mg iron) Tablet 325 mg PO DAILY isosorbide mononitrate 30 mg tablet extended release 24 hr 60 mg PO DAILY Rx Instructions: TAKE 2 TABLETS BY MOUTH EVERY DAY amlodipine 5 mg tablet 5 mg PO DAILY sotalol 120 mg tablet 120 mg PO BID montelukast 10 mg tablet 10 mg PO DAILY Discharge Orders: Discharge ED (Routine); Ordered 11/07/23 Ordered By: Rivera Oconnor Referrals: Kam Regan MD [Primary Care Provider] - Discharge Diet: Usual diet Discharge Activity: Increase activity as tolerated Patient Instructions: Fall Prevention for Older Adults (ED) Activity Restrictions/Additional Instructions: Make sure to use your walker or cane to assist with ambulation. Drink plenty of water and fluids. Continue your routine medications as directed. Follow-up with primary care for further instructions. Coding Level of Care Code ED Telephone Services Sales Representative for [facility] Documented by User: Jamari Mendoza DO 11/08/23 07:11 HPI - Fall General: Chief Complaint: Fall Stated Complaint: head pain s/p fall Time Seen by Provider: 11/07/23 18:06 Related Data Home Medications Medication Instructions Recorded Confirmed aspirin 81 mg tablet,delayed 81 mg PO QAM 05/26/19 11/03/23 release (Adult Low Dose Aspirin) cetirizine 10 mg tablet (Zyrtec) 10 mg PO QAM 05/26/19 11/03/23 magnesium oxide 400 mg PO BID 05/26/19 11/03/23 ferrous sulfate 325 mg (65 mg 325 mg PO DAILY 05/21/22 11/03/23 iron) tablet (iron) amlodipine 5 mg tablet 5 mg PO DAILY 03/23/23 11/03/23 isosorbide mononitrate 30 mg 60 mg PO DAILY 03/23/23 11/03/23 tablet,extended release 24 hr montelukast 10 mg tablet 10 mg PO DAILY 03/23/23 11/03/23 sotalol 120 mg tablet 120 mg PO BID 03/23/23 11/03/23 Previous Rx's Medication Instructions Recorded nitroglycerin 0.4 mg sublingual 0.4 mg sublingual Q5M PRN Chest 05/27/22 tablet (Nitrostat) Pain #30 tabs tamsulosin 0.4 mg capsule 0.4 mg PO BEDTIME #90 caps 11/11/22 clopidogrel 75 mg tablet See Rx Instructions .Route 03/24/23 .COMPLEX #90 tabs atorvastatin 20 mg tablet See Rx Instructions .Route 05/05/23 .COMPLEX #90 tabs pantoprazole 40 mg tablet,delayed See Rx Instructions .Route 05/08/23 release .COMPLEX #180 tabs alprazolam 0.25 mg tablet 0.25 mg PO BID PRN anxiety #20 tabs 10/28/23 diazepam 5 mg tablet (Valium) 5 mg PO .COMPLEX PRN anxiety #30 10/28/23 tabs meclizine 25 mg tablet 25 mg PO DAILY dizziness #120 tabs 10/28/23 Allergies Allergy/AdvReac Type Severity Reaction Status Date / Time amoxicillin [From Augmentin] Allergy Mild ADR-Diarrhe Verified 11/07/23 18:02 a clavulanic acid Allergy Mild ADR-Diarrhe Verified 11/07/23 18:02 [From Augmentin] a [facility] ED PFSH: Medical History Coronary artery disease Salmonella enteritis Hyperlipidemia PATTI (obstructive sleep apnea) Atrial fibrillation Arteriosclerotic coronary artery disease HTN (hypertension) Surgical History S/P cholecystectomy (2008) S/P PTCA (percutaneous transluminal coronary angioplasty) (2013) Family History Other Cancer Social History Smoking and tobacco/nicotine status: never used tobacco/nicotine Quit status (tobacco/nicotine): has quit using Former quit date comment: Smoked x 5 to 6 years Alcohol intake: never Substance/Drug Use: never Lives independently: Yes Household members: spouse and children Marital status: Course Vital Signs: Vital signs: Vital Signs Temperature 98.1 F 11/07/23 17:56 Pulse Rate 62 11/07/23 20:35 Respiratory Rate 23 H 11/07/23 20:35 Blood Pressure 128/65 11/07/23 20:35 Pulse Oximetry 94 11/07/23 20:35 Oxygen Delivery Me thod Room Air 11/07/23 17:56 MDM - Fall Medical Decision Making 82-year-old male patient comes in for evaluation of injury after a fall. Patient reports losing his balance and falling and hitting his head against the edge of the TV stand. Patient denies any loss of consciousness. Patient reports no headache or neck discomfort. Patient moves neck without difficulty. Patient appears nontoxic. Patient is in no acute distress. Patient states he has been having balance issues for a long time but back in April after his head injury he has had poor symptoms. Patient had a recent MRI on of this week. Patient is being evaluated by neurologist and is scheduled to follow-up with him in November. Differential diagnosis includes intracranial bleeding, skull fracture, contusion, concussion. CT of the head was unremarkable. Reviewed exam with patient and family with recommendations for treatment and follow-up. This patient was originally seen by HELEN Shore.? I agree with his history, evaluation, and treatment. Lab Data Radiology Impressions Head CT 11/07/23 18:06 IMPRESSION: 1. No acute intracranial pathology. 2. Incidental findings as above. Discharge Plan Discharge Patient Disposition: Home Clinical Impression: Head injury, acute, without loss of consciousness Qualifiers: Encounter type: initial encounter Qualified Code(s): S09.90XA - Unspecified injury of head, initial encounter Condition: Stable Prescriptions: No Action magnesium oxide 400 mg magnesium capsule 400 mg PO BID aspirin [Adult Low Dose Aspirin] 81 mg tablet,delayed release (DR/EC) 81 mg PO QAM Hold Instructions: Home Medication placed on hold at Doctor's office cetirizine [Zyrtec] 10 mg tablet 10 mg PO QAM tamsulosin 0.4 mg capsule 0.4 mg PO BEDTIME Qty: 90 3RF diazepam [Valium] 5 mg tablet 5 mg PO .COMPLEX PRN (Reason: anxiety) Qty: 30 2RF Rx Instructions: 1 tab tid prn severe dizziness meclizine 25 mg tablet 25 mg PO DAILY Qty: 120 3RF Rx Instructions: May take up to tid if needed. alprazolam 0.25 mg tablet 0.25 mg PO BID PRN (Reason: anxiety) Qty: 20 2RF nitroglycerin [Nitrostat] 0.4 mg tablet, sublingual 0.4 mg SUBLINGUAL Q5M PRN (Reason: Chest Pain) Qty: 30 3RF methylprednisolone acetate [Depo-Medrol] 80 mg/mL suspension 80 mg intra-articular ONCE Qty: 1 0RF lidocaine (PF) 10 mg/mL (1 %) solution 10 mg intra-articular ONCE Qty: 2 0RF clopidogrel 75 mg tablet See Rx Instructions .ROUTE .COMPLEX Qty: 90 3RF Hold Instructions: Home Medication placed on hold at Doctor's office Dose Instruction: TAKE 1 TABLET BY MOUTH EVERY DAY Rx Instructions: TAKE 1 TABLET BY MOUTH EVERY DAY atorvastatin 20 mg tablet See Rx Instructions .ROUTE .COMPLEX Qty: 90 3RF Dose Instruction: TAKE 1 TABLET BY MOUTH EVERY DAY Rx Instructions: TAKE 1 TABLET BY MOUTH EVERY DAY pantoprazole 40 mg tablet,delayed release (DR/EC) See Rx Instructions .ROUTE .COMPLEX Qty: 180 11RF Dose Instruction: TAKE 1 TABLET BY MOUTH TWICE A DAY Rx Instructions: TAKE 1 TABLET BY MOUTH TWICE A DAY ferrous sulfate [iron] 325 mg (65 mg iron) Tablet 325 mg PO DAILY isosorbide mononitrate 30 mg tablet extended release 24 hr 60 mg PO DAILY Rx Instructions: TAKE 2 TABLETS BY MOUTH EVERY DAY amlodipine 5 mg tablet 5 mg PO DAILY sotalol 120 mg tablet 120 mg PO BID montelukast 10 mg tablet 10 mg PO DAILY Discharge Orders: Discharge ED (Routine); Ordered 11/07/23 Ordered By: Rivera Oconnor Referrals: Kam Regan MD [Primary Care Provider] - Discharge Diet: Usual diet Discharge Activity: Increase activity as tolerated Patient Instructions: Fall Prevention for Older Adults (ED) Activity Restrictions/Additional Instructions: Make sure to use your walker or cane to assist with ambulation. Drink plenty of water and fluids. Continue your routine medications as directed. Follow-up with primary care for further instructions. Coding Level of Care Code ED Telephone Services Sales Representative for Trent Lanza
[2023-11-07 20:35] VITALS: BP 128/65; PULSE 62; RESP 23; O2SAT 94
== END 2023-11-07 20:30 | disposition home or self-care (01) ==
PROVIDERS: Emergency Provider Nurse Practitioner Family; PCP Family Medicine
DX: S09.90XA Unspecified injury of head, initial encounter (principal); W01.190A Fall on same level from slipping, tripping and stumbling with subsequent striking against furniture, initial encounter; Z79.02 Long term (current) use of antithrombotics/antiplatelets
CPT/HCPCS: 70450; 99284

== ENCOUNTER 2023-11-24 09:30 | Oncology outpatient (recurring) (ONCR) | payer MEDICARE, OTHER, SELFPAY ==
--- NOTE | 2023-11-24 10:00 | CTR_ITS ---
PROCEDURE INFORMATION: Exam: CT Chest Without and With Contrast; Diagnostic Exam date and time: 11/24/2023 10:18 AM Age: 83 years old Clinical indication: Abnormal findings; Abnormal lab test; Elevated liver enzymes; Additional info: Followup previous exam of 01/2023 TECHNIQUE: Imaging protocol: Diagnostic computed tomography of the chest without and with contrast. Radiation optimization: All CT scans at this facility use at least one of these dose optimization techniques: automated exposure control; mA and/or kV adjustment per patient size (includes targeted exams where dose is matched to clinical indication); or iterative reconstruction. Contrast material: OMNI 350; Contrast volume: 100 ml; Contrast route: INTRAVENOUS (IV); COMPARISON: [place] [id number] 02/07/2022 6:00 AM RADIATION DOSE METRICS: Total DLP (mGy-cm): 2866.13 FINDINGS: Lungs: Stable, small old calcified granuloma in both lungs. No new pulmonary infiltrates or nodules identified. Pleural spaces: Unremarkable. No pneumothorax. No pleural effusion. Heart: Unremarkable. No cardiomegaly. No pericardial effusion. Coronary arteries: Extensive calcified coronary artery disease. Lymph nodes: Unremarkable. No enlarged lymph nodes. Vasculature: Unremarkable. No aortic aneurysm. Bones/joints: Old, healed right posterolateral 7th rib fracture. No acute osseous lesions identified. Soft tissues: Unremarkable. PROCEDURE INFORMATION: Exam: CT Abdomen And Pelvis Without And With Contrast Exam date and time: 11/24/2023 10:18 AM Age: 83 years old Clinical indication: Abnormal findings; Abnormal lab test; Elevated liver enzymes; Additional info: Followup previous exam of 01/2023 TECHNIQUE: Imaging protocol: Computed tomography of the abdomen and pelvis without and with contrast. Radiation optimization: All CT scans at this facility use at least one of these dose optimization techniques: automated exposure control; mA and/or kV adjustment per patient size (includes targeted exams where dose is matched to clinical indication); or iterative reconstruction. Contrast material: OMNI 350; Contrast volume: 100 ml; Contrast route: INTRAVENOUS (IV); COMPARISON: 1. CT pelvis wo con [id number] 05/23/2023 8:[address] [place] [id number] 02/07/2022 6:[address] abdomen pelvis w con* [id number] 03/23/2023 2:12 PM RADIATION DOSE METRICS: Total DLP (mGy-cm): 2866.13 FINDINGS: Liver: Hepatic steatosis. No focal liver lesion identified. Mild hepatomegaly. The liver measures 19 cm in craniocaudal dimension. Gallbladder and biliary ducts: Cholecystectomy. Pancreas: Normal. No ductal dilation. Spleen: Splenomegaly. The spleen measures 16 cm. Adrenal glands: Normal. No mass. Kidneys and ureters: Normal. No hydronephrosis. Stomach and bowel: Unremarkable. No obstruction. No mucosal thickening. Appendix: No evidence of appendicitis. Intraperitoneal space: Unremarkable. No free air. No significant fluid collection. Vasculature: Unremarkable. No abdominal aortic aneurysm. Lymph nodes: Unremarkable. No enlarged lymph nodes. Urinary bladder: Unremarkable as visualized. Reproductive: Unremarkable as visualized. 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 Soft tissues: Fat containing left inguinal hernia. CT/CT psychiatric wo/w [id number] IMPRESSION: 1. Stable old calcified granulomas in both lungs. No acute pulmonary infiltrates or nodules are identified. 2. Extensive calcified coronary artery disease. IMPRESSION: 1. Hepatic steatosis and mild hepatomegaly. 2. Stable splenomegaly.
[2023-11-24] MEDS: iohexol 350 mg/mL 500 mL Btl (per mL) IV (10:35)
== END 2023-12-10 23:59 | disposition home or self-care (01) ==
LOC: RAD 09:31 → ONCMED 11-25 10:35
PROVIDERS: PCP Family Medicine; Visit Provider Nurse Practitioner
DX: D61.818 Other pancytopenia (principal); Z87.891 Personal history of nicotine dependence; R74.01 Elevation of levels of liver transaminase levels; D64.9 Anemia, unspecified; D69.6 Thrombocytopenia, unspecified; D72.810 Lymphocytopenia; R16.1 Splenomegaly, not elsewhere classified; M85.89 Other specified disorders of bone density and structure, multiple sites; R91.1 Solitary pulmonary nodule; Z79.899 Other long term (current) drug therapy; I25.10 Atherosclerotic heart disease of native coronary artery without angina pectoris; R17 Unspecified jaundice
CPT/HCPCS: 71260; 74178

== ENCOUNTER → 2023-12-07 07:52 | Outpatient (BNVA) | payer MEDICARE, OTHER, SELFPAY | PROVIDERS: PCP Family Medicine; Referring Provider Family Medicine; Visit Provider Psychiatry & Neurology Neurology | DX: R42 Dizziness and giddiness (principal); R26.2 Difficulty in walking, not elsewhere classified; I25.10 Atherosclerotic heart disease of native coronary artery without angina pectoris; K51.519 Left sided colitis with unspecified complications; D49.7 Neoplasm of unspecified behavior of endocrine glands and other parts of nervous system; Z87.898 Personal history of other specified conditions; R29.818 Other symptoms and signs involving the nervous system; H55.09 Other forms of nystagmus | CPT/HCPCS: 82306; 82607; 82746; 83090; 83735; 83921; 84155; 84165; 86334; 86592; 93005; 99203; 99204 ==

== ENCOUNTER 2023-12-15 12:52 | Oncology outpatient (recurring) (ONCR) | payer MEDICARE, OTHER, SELFPAY ==
--- NOTE | 2023-12-15 13:15 | CTR_ITS ---
PROCEDURE INFORMATION: Exam: CTA Head With Contrast, Arteriography Exam date and time: 12/15/2023 1:44 PM Age: 83 years old Clinical indication: Dizziness and giddiness; Additional info: R42 - dizziness and giddiness TECHNIQUE: Imaging protocol: Computed tomographic angiography of the head with contrast. Exam focused on the arteries. 3D rendering (Not supervised by radiologist): MIP and/or 3D reconstructed images were created by the technologist. Radiation optimization: All CT scans at this facility use at least one of these dose optimization techniques: automated exposure control; mA and/or kV adjustment per patient size (includes targeted exams where dose is matched to clinical indication); or iterative reconstruction. Contrast material: OMNI 350; Contrast volume: 100 ml; Contrast route: INTRAVENOUS (IV); COMPARISON: CT head wo con* [id number] 11/07/2023 6:16 PM RADIATION DOSE METRICS: Total DLP (mGy-cm): 1292.64 FINDINGS: ANTERIOR CIRCULATION: Right internal carotid artery: Mild calcified plaque. No significant stenosis or aneurysm is seen involving the petrous, cavernous, or supraclinoid right internal caroid artery. Right middle cerebral artery: No occlusion or significant stenosis. No aneurysm. Right anterior cerebral artery: No occlusion or significant stenosis. No aneurysm. Left internal carotid artery: Mild calcified plaque. No significant stenosis or aneurysm is seen involving the petrous, cavernous, or supraclinoid left internal caroid artery. Left middle cerebral artery: No occlusion or significant stenosis. No aneurysm. Left anterior cerebral artery: No occlusion or significant stenosis. No aneurysm. POSTERIOR CIRCULATION: Right vertebral artery: Intradural right vertebral artery demonstrates no occlusion or significant stenosis. No aneurysm. Left vertebral artery: Intradural left vertebral artery demonstrates no occlusion or significant stenosis. No aneurysm. Basilar artery: No occlusion or significant stenosis. No aneurysm. Right posterior cerebral artery: No occlusion or significant stenosis. No aneurysm. Left posterior cerebral artery: No occlusion or significant stenosis. No aneurysm. origin of the left posterior cerebral artery Brain: No acute confluent lobar infarct, acute parenchymal hemorrhage or mass effect. Mild nonspecific white matter low attenuation which may be related to microvascular ischemic changes. Left basal ganglia lacune versus prominent perivascular space. Cerebral ventricles: The ventricles and sulci are prominent in size compatible with mild atrophy. Paranasal sinuses: Opacification of the right maxillary sinus. Moderate mucoperiosteal thickening left maxillary sinus with fluid level. Bones/joints: Unremarkable. No acute fracture. Soft tissues: Visualized soft tissues are unremarkable. PROCEDURE INFORMATION: Exam: CTA Neck With Contrast Exam date and time: 12/15/2023 1:44 PM Age: 83 years old Clinical indication: Dizziness and giddiness; Additional info: R42 - dizziness and giddiness TECHNIQUE: Imaging protocol: Computed tomographic angiography of the neck with contrast. Exam focused on the cervical segments of the vasculature. 3D rendering (Not supervised by radiologist): MIP and/or 3D reconstructed images were created by the technologist. Radiation optimization: All CT scans at this facility use at least one of these dose optimization techniques: automated exposure control; mA and/or kV adjustment per patient size (includes targeted exams where dose is matched to clinical indication); or iterative reconstruction. Contrast material: OMNI 350; Contrast volume: 100 ml; Contrast route: INTRAVENOUS (IV); COMPARISON: CT [place] wo/w [id number] 11/24/2023 10:18 AM RADIATION DOSE METRICS: Total DLP (mGy-cm): 1292.64 FINDINGS: Right common carotid artery: No stenosis. No dissection or occlusion. Right internal carotid artery: Moderate calcified plaque is seen involving the right carotid bulb and proximal right cervical internal carotid artery. No significant stenosis seen by NASCET criteria. No dissection or occlusion. Right external carotid artery: No occlusion or stenosis of the origin. Left common carotid artery: No stenosis. No dissection or occlusion. Left internal carotid artery: Moderate calcified and noncalcified plaque is seen involving the left carotid bulb and proximal left cervical internal carotid artery. No significant stenosis seen by NASCET criteria. No dissection or occlusion. Left external carotid artery: No occlusion or stenosis of the origin. Right vertebral artery: No cervical vertebral artery stenosis. No dissection or occlusion. Left vertebral artery: No cervical vertebral artery stenosis. No dissection or occlusion. Soft tissues: Visualized soft tissues of the neck are unremarkable. Bones/joints: No acute bony abnormality. CT/CT angio headneck* [id number] IMPRESSION: 1. No intracranial large vessel arterial stenosis or occlusion. 2. No acute intracranial abnormality. If symptoms persist, consider further evaluation with MRI, if MRI is clinically safe to obtain. IMPRESSION: No significant cervical arterial stenosis or occlusion. REFERENCES: NASCET CRITERIA. The degree of stenosis in the cervical segment of the internal carotid artery is based on NASCET criteria. Normal is no stenosis. Mild is less than 50% stenosis. Moderate is 50-69% stenosis. Severe is 70% to 99% stenosis. Total occlusion is no detectable patent lumen.
[2023-12-15 13:47] LABS: Blood Urea Nitrogen 18 mg/dL (8-23)
[2023-12-15] MEDS: iohexol 350 mg/mL 500 mL Btl (per mL) IV (13:49)
--- NOTE | 2023-12-24 13:00 | MRR_ITS ---
PROCEDURE INFORMATION: Exam: MR Head Without and With Contrast, Sella Exam date and time: 12/24/2023 1:21 PM Age: 83 years old Clinical indication: Abnormal findings; Abnormal radiologic findings of head/skull; Not specified; Additional info: Z87.898 - personal history of other specified conditions, pituitary lesion seen on head mri 10/2023, want to evaluate TECHNIQUE: Imaging protocol: MR of the head without and with intravenous contrast. Exam focused on the sella. Contrast material: MULTIHANCE; Contrast volume: 19 ml; Contrast route: INTRAVENOUS (IV); COMPARISON: 1. CT angio headneck* [id number] 12/15/2023 1:44 PM 2. MR head wo/w con [id number] 11/05/2023 10:20 AM FINDINGS: Brain: Moderate parenchymal volume loss. No midline shift. No acute infarct, hemorrhage, or extra-axial fluid collection. No abnormal enhancement. Mild bilateral periventricular and subcortical white matter T2 hyperintensities are present compatible with small-vessel ischemic disease. Cerebral ventricles: Unremarkable. No ventriculomegaly. 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 Lesion has not increased in size. Largest dimension is transversely at approximately 11 mm. Paranasal sinuses: Moderate bilateral maxillary sinus mucosal thickening. Bones/joints: Unremarkable. 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 Lesion has not increased in size. Largest dimension is transversely at approximately 11 mm.
--- NOTE | 2023-12-31 12:00 | USCV_ITS ---
Ky Najera Age: 83 Gender: M : 1940 Exam Date: 12/31/2023 12:00 Ordering Phys: Ashely Hernandez MD ([email or web address]) Technologist: SCARLETT Exam Location: [facility] [place] Indication: SOB with low WBC BP: / HR: 50 Rhythm: Sinus Technical Quality: Adequate MEASUREMENTS (Male / Female) Normal Values 2D ECHO LV Diastolic Diameter PLAX 2.8 cm 4.2 - 5.9 / 3.9 - 5.3 cm IVS Diastolic Thickness 0.8 cm 0.6 - 1.0 / 0.6 - 0.9 cm IVS Systolic Thickness 1.0 cm LVPW Diastolic Thickness 1.2 cm 0.6 - 1.0 / 0.6 - 0.9 cm LVPW Systolic Thickness 1.3 cm LVOT Diameter 2.0 cm LV Ejection Fraction 2D Teich 57.6 % LV Ejection Fraction MOD 4C 56.5 % LV Ejection Fraction MOD 2C 70.4 % LV Ejection Fraction 2C AL 70.8 % LA Diameter 2.2 cm RA Systolic Volume 4C AL 31.4 ml RA Systolic Volume 4C MOD 30.8 ml LA Sys Volume AL 25.6 cm cubed LA Sys Volume Index AL 12.4 cm cubed/m squared Aorta at Sinotubular Diameter 2.8 cm IVC Diameter 1.5 cm M-MODE LA Ao Ratio MM 1.2 AV Cusp Separation MM 2.0 cm DOPPLER AV Peak Velocity 117.0 cm/s LVOT Peak Velocity 95.0 cm/s AV Area Cont Eq vti 3.2 cm squared AV Area Cont Eq pk 2.6 cm squared MV Area PHT 2.5 cm squared Mitral E to A Ratio 0.8 TV Peak Velocity 185.5 cm/s TR Peak Velocity 255.0 cm/s TR Peak Gradient 26.0 mmHg TR Mean Velocity 194.0 cm/s TR Mean Gradient 17.3 mmHg TR Velocity Time Integral 76.4 cm TV Peak E Velocity 71.0 cm/s Right Atrial Pressure 3.0 mmHg Pulmonary Artery Systolic Pressu 29.0 mmHg PV Peak Velocity 130.0 cm/s FINDINGS Left Ventricle Normal left ventricular size, systolic function and wall thickness, with no regional wall motion abnormalities. Left ventricular ejection fraction is estimated at 60 %. Grade I/IV diastolic dysfunction (abnormal relaxation filling pattern), normal to mildly elevated filling pressures. Right Ventricle The right ventricle is normal in size and function. Right Atrium The right atrium is normal in size. Left Atrium The left atrium is normal in size. Mitral Valve Structurally normal mitral valve without significant stenosis or prolapse. There is no mitral regurgitation. Aortic Valve Structurally normal aortic valve without significant sclerosis or stenosis. There is no aortic regurgitation. Tricuspid Valve Structurally normal tricuspid valve without significant stenosis or regurgitation. Pulmonary artery systolic pressure is normal. Pulmonic Valve Structurally normal pulmonic valve without significant stenosis. There is no pulmonic regurgitation. Pericardium Normal pericardium without effusion. Aorta Normal ascending aorta dimension. IVC The inferior vena cava appears normal. CONCLUSIONS Normal left ventricular size, systolic function and wall thickness, with no regional wall motion abnormalities. Left ventricular ejection fraction is estimated at 60 %. Grade I/IV diastolic dysfunction (abnormal relaxation filling pattern), normal to mildly elevated filling pressures. No significant valve abnormalities. There is no pericardial effusion. Pulmonary artery systolic pressure is within normal limits. Right atrial pressure is around 5 mm of mercury. Ashely Hernandez MD (Electronically Signed) Final Date: 31 December 2023 13:51 S
== END 2024-01-09 23:59 | disposition home or self-care (01) ==
LOC: ONCMED 12:52 → RAD 12:58 → ONCMED 12-16 13:45
PROVIDERS: Psychiatry & Neurology Neurology; PCP Family Medicine; Visit Provider Internal Medicine Cardiovascular Disease
DX: Z53.9 Procedure and treatment not carried out, unspecified reason; R42 Dizziness and giddiness; R26.2 Difficulty in walking, not elsewhere classified
CPT/HCPCS: 70496; 70498; 70553; 82565; 84520; 93306

== ENCOUNTER 2023-12-31 11:29 | Outpatient (CLI) | payer MEDICARE, OTHER, SELFPAY ==
--- NOTE | 2023-12-31 12:00 | USCV_ITS ---
Ky Najera Age: 83 Gender: M : 1940 Exam Date: 12/31/2023 12:00 Ordering Phys: Ashely Hernandez MD ([email or web address]) Technologist: SCARLETT Exam Location: [facility] [place] Indication: SOB with low WBC BP: / HR: 50 Rhythm: Sinus Technical Quality: Adequate MEASUREMENTS (Male / Female) Normal Values 2D ECHO LV Diastolic Diameter PLAX 2.8 cm 4.2 - 5.9 / 3.9 - 5.3 cm IVS Diastolic Thickness 0.8 cm 0.6 - 1.0 / 0.6 - 0.9 cm IVS Systolic Thickness 1.0 cm LVPW Diastolic Thickness 1.2 cm 0.6 - 1.0 / 0.6 - 0.9 cm LVPW Systolic Thickness 1.3 cm LVOT Diameter 2.0 cm LV Ejection Fraction 2D Teich 57.6 % LV Ejection Fraction MOD 4C 56.5 % LV Ejection Fraction MOD 2C 70.4 % LV Ejection Fraction 2C AL 70.8 % LA Diameter 2.2 cm RA Systolic Volume 4C AL 31.4 ml RA Systolic Volume 4C MOD 30.8 ml LA Sys Volume AL 25.6 cm cubed LA Sys Volume Index AL 12.4 cm cubed/m squared Aorta at Sinotubular Diameter 2.8 cm IVC Diameter 1.5 cm M-MODE LA Ao Ratio MM 1.2 AV Cusp Separation MM 2.0 cm DOPPLER AV Peak Velocity 117.0 cm/s LVOT Peak Velocity 95.0 cm/s AV Area Cont Eq vti 3.2 cm squared AV Area Cont Eq pk 2.6 cm squared MV Area PHT 2.5 cm squared Mitral E to A Ratio 0.8 TV Peak Velocity 185.5 cm/s TR Peak Velocity 255.0 cm/s TR Peak Gradient 26.0 mmHg TR Mean Velocity 194.0 cm/s TR Mean Gradient 17.3 mmHg TR Velocity Time Integral 76.4 cm TV Peak E Velocity 71.0 cm/s Right Atrial Pressure 3.0 mmHg Pulmonary Artery Systolic Pressu 29.0 mmHg PV Peak Velocity 130.0 cm/s FINDINGS Left Ventricle Normal left ventricular size, systolic function and wall thickness, with no regional wall motion abnormalities. Left ventricular ejection fraction is estimated at 60 %. Grade I/IV diastolic dysfunction (abnormal relaxation filling pattern), normal to mildly elevated filling pressures. Right Ventricle The right ventricle is normal in size and function. Right Atrium The right atrium is normal in size. Left Atrium The left atrium is normal in size. Mitral Valve Structurally normal mitral valve without significant stenosis or prolapse. There is no mitral regurgitation. Aortic Valve Structurally normal aortic valve without significant sclerosis or stenosis. There is no aortic regurgitation. Tricuspid Valve Structurally normal tricuspid valve without significant stenosis or regurgitation. Pulmonary artery systolic pressure is normal. Pulmonic Valve Structurally normal pulmonic valve without significant stenosis. There is no pulmonic regurgitation. Pericardium Normal pericardium without effusion. Aorta Normal ascending aorta dimension. IVC The inferior vena cava appears normal. CONCLUSIONS Normal left ventricular size, systolic function and wall thickness, with no regional wall motion abnormalities. Left ventricular ejection fraction is estimated at 60 %. Grade I/IV diastolic dysfunction (abnormal relaxation filling pattern), normal to mildly elevated filling pressures. No significant valve abnormalities. There is no pericardial effusion. Pulmonary artery systolic pressure is within normal limits. Right atrial pressure is around 5 mm of mercury. Ashely Hernandez MD (Electronically Signed) Final Date: 31 December 2023 13:51 S
== END 2023-12-31 11:30 | disposition home or self-care (01) ==
LOC: RAD 11:30
PROVIDERS: PCP Family Medicine; Visit Provider Internal Medicine Cardiovascular Disease
DX: I50.30 Unspecified diastolic (congestive) heart failure (principal); R06.02 Shortness of breath
CPT/HCPCS: 93306

== ENCOUNTER → 2024-02-08 15:53 | Outpatient (BNVA) | payer MEDICARE, OTHER, SELFPAY | PROVIDERS: PCP Family Medicine; Visit Provider Family Medicine | DX: J02.9 Acute pharyngitis, unspecified (principal) | CPT/HCPCS: 87071; 87400; 87426; 87880 ==

== ENCOUNTER → 2024-02-25 13:58 | Outpatient (BNVA) | payer MEDICARE, OTHER, SELFPAY | PROVIDERS: PCP Family Medicine; Visit Provider Family Medicine | DX: I25.10 Atherosclerotic heart disease of native coronary artery without angina pectoris (principal); I48.19 Other persistent atrial fibrillation; R42 Dizziness and giddiness; D69.6 Thrombocytopenia, unspecified; D49.7 Neoplasm of unspecified behavior of endocrine glands and other parts of nervous system; E55.9 Vitamin D deficiency, unspecified; Z79.899 Other long term (current) drug therapy | CPT/HCPCS: 80053; 82306; 84443; 85025 ==

== ENCOUNTER 2024-03-03 12:21 | Oncology outpatient (recurring) (ONCR) | payer MEDICARE, OTHER, SELFPAY ==
[2024-03-03 12:53] LABS: Lymphocytes # 0.6 10^3/uL (0.8-4.8); Lymphocytes % 20.2 %; Mean Corpuscular HGB Conc 33.9 g/dL (30-55); Mean Corpuscular Hemoglobin 31.2 pg (27-33); Mean Corpuscular Volume 92.1 fl (82-101); Mean Platelet Volume 10.1 fL (7.4-10.4); Monocytes # 0.3 10^3/uL (0.2-0.9); Monocytes % 8.7 %; Neutrophils # 1.98 10^3/uL (1.8-7.7); Neutrophils % 69.1 %; Nucleated Red Blood Cells % 0 %; Platelet Count 89 10^3/cmm (157-399); Red Blood Count 4.45 10^6/uL (3.85-5.65); Red Cell Distribution Width 14.2 % (12.1-15.1); White Blood Count 2.87 10^3/uL (3.29-11.43)
[2024-03-03 13:11] LABS: Alanine Aminotransferase 18 U/L (0-41); Albumin Level 4.4 g/dL (3.5-5.2); Alkaline Phosphatase 82 U/L (40-130); Anion Gap 13.3 (5-19); Aspartate Amino Transferase 17 U/L (0-40); Blood Urea Nitrogen 17 mg/dL (8-23); Calcium 9.7 mg/dL (8.5-10.5); Carbon Dioxide 26 mmol/L (22-29); Chloride 104 mmol/L (98-107); Globulin 3.4 g/dL (1.3-4.6); Glucose 155 mg/dL (65-115); Lactate Dehydrogenase 155 U/L (135-225); Osmolality Calculated 293 mOsm/kg (285-295); Potassium 4.3 mmol/L (3.5-5.1); Sodium 139 mmol/L (136-145); Total Bilirubin 2.4 mg/dL (0.15-1.2); Total Protein 7.8 g/dL (6.6-8.7)
[2024-03-03 13:27] LABS: 25 Hydroxy Vitamin D 61 ng/mL (30-100)
== END 2024-03-11 23:59 | disposition home or self-care (01) ==
PROVIDERS: Internal Medicine; Nurse Practitioner; Psychiatry & Neurology Neurology; PCP Family Medicine; Visit Provider Internal Medicine Cardiovascular Disease
DX: C44.329 Squamous cell carcinoma of skin of other parts of face (principal); E55.9 Vitamin D deficiency, unspecified; D61.818 Other pancytopenia; R16.1 Splenomegaly, not elsewhere classified; I10 Essential (primary) hypertension; F17.220 Nicotine dependence, chewing tobacco, uncomplicated; E78.5 Hyperlipidemia, unspecified; I25.10 Atherosclerotic heart disease of native coronary artery without angina pectoris; G47.30 Sleep apnea, unspecified
CPT/HCPCS: 36415; 80053; 82248; 82306; 83615; 85025; 99213

== ENCOUNTER → 2024-04-20 13:09 | Outpatient (BNVA) | payer MEDICARE, OTHER, SELFPAY | PROVIDERS: PCP Family Medicine | DX: J20.8 Acute bronchitis due to other specified organisms (principal); B96.89 Other specified bacterial agents as the cause of diseases classified elsewhere | CPT/HCPCS: 87400 ==

== ENCOUNTER → 2024-05-02 15:29 | Outpatient (BNVA) | payer MEDICARE, OTHER, SELFPAY | PROVIDERS: PCP Family Medicine; Visit Provider Nurse Practitioner Family | DX: L82.1 Other seborrheic keratosis (principal); D22.4 Melanocytic nevi of scalp and neck; L81.4 Other melanin hyperpigmentation; Z08 Encounter for follow-up examination after completed treatment for malignant neoplasm; Z85.828 Personal history of other malignant neoplasm of skin; L30.9 Dermatitis, unspecified; D48.5 Neoplasm of uncertain behavior of skin; L57.0 Actinic keratosis | CPT/HCPCS: 11104; 17000; 99213 ==

== ENCOUNTER → 2024-05-12 09:28 | Outpatient (BNVA) | payer MEDICARE, OTHER, SELFPAY | PROVIDERS: PCP Family Medicine; Visit Provider Nurse Practitioner Family | DX: L81.7 Pigmented purpuric dermatosis (principal); L82.1 Other seborrheic keratosis; L56.5 Disseminated superficial actinic porokeratosis (DSAP) | CPT/HCPCS: 99213 ==

== ENCOUNTER → 2024-06-29 12:32 | Outpatient (BNVA) | payer MEDICARE, OTHER, SELFPAY | PROVIDERS: PCP Family Medicine; Visit Provider Family Medicine | DX: I25.10 Atherosclerotic heart disease of native coronary artery without angina pectoris (principal); I48.19 Other persistent atrial fibrillation; E78.5 Hyperlipidemia, unspecified; D69.6 Thrombocytopenia, unspecified; R35.1 Nocturia; R73.9 Hyperglycemia, unspecified | CPT/HCPCS: 80053; 80061; 83036; 84153; 85025 ==

== ENCOUNTER → 2024-07-05 16:05 | Outpatient (BNVA) | payer MEDICARE, OTHER, SELFPAY | PROVIDERS: PCP Family Medicine; Visit Provider Internal Medicine Cardiovascular Disease | DX: I48.19 Other persistent atrial fibrillation (principal); Z79.02 Long term (current) use of antithrombotics/antiplatelets; I10 Essential (primary) hypertension; D35.2 Benign neoplasm of pituitary gland; Z98.61 Coronary angioplasty status; Z87.891 Personal history of nicotine dependence | CPT/HCPCS: 99214 ==

== ENCOUNTER → 2024-10-06 14:47 | Outpatient (BNVA) | payer MEDICARE, SELFPAY | PROVIDERS: PCP Family Medicine; Visit Provider Nurse Practitioner Family | DX: L81.7 Pigmented purpuric dermatosis (principal); L82.1 Other seborrheic keratosis; L56.5 Disseminated superficial actinic porokeratosis (DSAP); L57.0 Actinic keratosis | CPT/HCPCS: 17000; 99213 ==

== ENCOUNTER → 2024-11-29 09:48 | Outpatient (BNVA) | payer MEDICARE, SELFPAY | PROVIDERS: PCP Family Medicine; Visit Provider Family Medicine | DX: I10 Essential (primary) hypertension (principal); I25.10 Atherosclerotic heart disease of native coronary artery without angina pectoris; I48.19 Other persistent atrial fibrillation; E78.5 Hyperlipidemia, unspecified; E11.9 Type 2 diabetes mellitus without complications | CPT/HCPCS: 80053; 80061; 83036; 84443; 85025 ==

== ENCOUNTER → 2024-12-13 13:31 | Outpatient (BNVA) | payer MEDICARE, SELFPAY | PROVIDERS: PCP Family Medicine; Visit Provider Internal Medicine Cardiovascular Disease | DX: Z01.818 Encounter for other preprocedural examination (principal); I48.91 Unspecified atrial fibrillation; I25.10 Atherosclerotic heart disease of native coronary artery without angina pectoris; I10 Essential (primary) hypertension | CPT/HCPCS: 99213 ==